=== PATIENT | female | born 1980 | race Caucasian/White ===

== ENCOUNTER 2021-05-14 20:39 | Inpatient (IN) | payer BC, SELFPAY ==
--- NOTE | ~2021-05-14 | US_ITS ---
EXAMINATION: US renal BI EXAM DATE: 05/15/2021 16:50 INDICATION: Acute kidney insufficiency. TECHNIQUE: Multiple grayscale and Doppler images of the kidneys were obtained (by a technologist who performed the scan) and subsequently reviewed. There is no prior study for comparison. FINDINGS: Right kidney: There is normal contour and echogenicity. It measures 10.1 x 4.8 x 5.9 centimeters. T here are no focal renal lesions identified. There is no hydronephrosis. Left kidney: There is normal contour and echogenicity. It measures 9.3 x 5.5 x 6.0 centimeters. The re are no focal renal lesions identified. There is no hydronephrosis. Bladder unremarkable. IMPRESSION: 1. Sonographically unremarkable kidneys. Reviewed, dictated and finalized at location G. CUTTER OPERATOR
--- NOTE | ~2021-05-14 | XR_ITS ---
EXAMINATION: XR chest 1V portable DATE: 05/16/2021 06:00 INDICATION: Hypoxia. TECHNIQUE: A single frontal view of the chest was obtained. COMPARISON: CT abdomen and pelvis 05/15/2021 FINDINGS: There are Sai B-lines in the lungs, consistent with mild pulmonary edema. No pleural eff usion or pneumothorax. The heart size is normal. IMPRESSION: 1. Mild pulmonary edema. Reviewed, dictated and finalized at location E. HOUSE ORDER SELECTOR IMPRESSION: 1. Mild pulmonary edema.
--- NOTE | ~2021-05-14 | CT_ITS ---
EXAMINATION: CT abdomen wo con DATE: 05/20/2021 11:30 INDICATION: Increased abdominal pain. Decreased drain output. TECHNIQUE: Computed tomography (CT) of the abdomen and pelvis was performed without intravenous contr ast. The dose-length product was 112.68 mGy-cm. Automated exposure control and iterative reconstructi on technique were employed. COMPARISON: CT dated 05/15/2021. FINDINGS: There are small-moderate bilateral pleural effusions with underlying compressive atelectasi s. Cannot exclude superimposed pneumonia. There are subtle reticulonodular densities in the lower lob es, most likely infectious/inflammatory. Heart size normal. No significant vascular abnormality. Ther e is thickening of the pylorus of the stomach and duodenum, likely secondary to pancreatitis. There i s gallbladder wall thickening. There are pancreatic calcifications, consistent with chronic pancreati tis. There is subtle stranding surrounding the pancreatic head extending into the pararenal space and along the liver margin, consistent with acute pancreatitis. There is a percutaneous drainage cathete r along the inferior margin of the liver with near complete resolution of perihepatic abscess. There is mild thickening of the gallbladder, likely also secondary to adjacent pancreatitis. IMPRESSION: 1. Interval development of small-moderate bilateral pleural effusions with underlying compressive ate lectasis. Cannot exclude superimposed pneumonia. 2: Abnormal thickening of the stomach and duodenum, likely secondary inflammatory changes from pancre atitis. 3: Acute superimposed on chronic pancreatitis. 4: Near complete resolution of perihepatic abscess since prior examination with drain in expected pos ition. Reviewed, dictated and finalized at location A. TING SUPERVISOR IMPRESSION: 1. Interval development of small-moderate bilateral pleural effusions with unde rlying compressive atelectasis. Cannot exclude superimposed pneumonia. 2: Abnormal thickening of the stomach and duodenum, likely secondary inflammato ry changes from pancreatitis. 3: Acute superimposed on chronic pancreatitis. 4: Near complete resolution of perihepatic abscess since prior examination with drain in expected position.
--- NOTE | ~2021-05-14 | CT_ITS ---
EXAMINATION: CT guide absc cath placement DATE: 05/15/2021 11:00 INDICATION: Perihepatic abscess. TECHNIQUE: The procedure including the risks, benefits, and alternatives was discussed with the patie nt. Risks discussed included bleeding and infection. The patient understood the risks and benefits an d agreed to proceed. The skin overlying the abdomen was prepped and draped in usual sterile fashion. Anesthetic was administered with 1% lidocaine subcutaneously. An 18 gauge trochar needle was inserte d into the perihepatic abscess with CT guidance. The needle was exchanged over a wire for 6 Gabonese, 8 Gabonese, and 9 Gabonese dilators and then for an 8.5 Gabonese pigtail catheter. The catheter was stitched to the skin, and a sterile dressing was applied. The mA was adjusted according to patient size. Iter ative reconstruction technique was employed. The dose-length product was 157.08 mGy-cm. There were no immediate complications. FINDINGS: CT images demonstrate the catheter within the perihepatic abscess. 7 mL fluid was aspirated for testing. IMPRESSION: 1. Successful CT-guided perihepatic abscess drainage. 2. 7 mL light green-nixon fluid was sent for aerobic and anaerobic cultures. Reviewed, dictated and finalized at location A. NCE SCOUT
--- NOTE | ~2021-05-14 | CT_ITS ---
EXAMINATION: CT abdomen pelvis wo con DATE: 05/15/2021 00:18 INDICATION: Epigastric abdominal pain. Right upper quadrant abdominal pain. Nausea. TECHNIQUE: Computed tomography (CT) of the abdomen and pelvis was performed without intravenous contr ast. Automated exposure control and iterative reconstruction technique were employed. The dose-length product was 179.86 mGy-cm. COMPARISON: None. FINDINGS: The visualized portions of the lung bases are clear without pneumonia or pleural effusion. The heart size is normal. No pericardial effusion. Calcifications in the spleen are consistent with o ld granulomatous disease. The pancreas demonstrates enlargement of the head with calcifications, cons istent with chronic pancreatitis. There is a 1.1 x 3.3 x 2.0 cm collection of fluid and gas involving the body of the pancreas extending along the gastric antrum to the liver margin, best seen on the co aditi images. At the right hepatic lobe, there is a subcapsular abscess with fluid and gas measuring 9.7 x 6.2 x 7.2 cm. There is surrounding fat stranding. There is wall thickening of the nearby ascend ing and proximal transverse colon, consistent with inflammation. There are no dilated loops of bowel. The appendix is normal. There is wall thickening of the distal stomach. There is fat stranding arou nd the head of the pancreas and distal stomach. The adrenal glands and kidneys are normal. There are no pathologically enlarged lymph nodes. There is no pelvic ascites. There is mild lumbar spondylosis. There are multiple Schmorl's nodes in the spine. IMPRESSION: 1. Acute on chronic pancreatitis with associated inflammation of the distal stomach and abscess track ing from the body of the pancreas to the liver margin. The abscess measures 1.1 x 3.3 x 2.0 cm adjace nt to the pancreas and 9.7 x 6.2 x 7.2 cm at the right lateral inferior margin of the liver. Reviewed, dictated and finalized at location A. BRATION ENGINEER IMPRESSION: 1. Acute on chronic pancreatitis with associated inflammation of the distal sto mach and abscess tracking from the body of the pancreas to the liver margin. Th e abscess measures 1.1 x 3.3 x 2.0 cm adjacent to the pancreas and 9.7 x 6.2 x 7.2 cm at the right lateral inferior margin of the liver.
[2021-05-14 20:43] VITALS: BP 92/77; PULSE 71; RESP 18; O2SAT 98
--- NOTE | 2021-05-14 21:40 | ED.ABDPAIN ---
HPI - Abdominal Pain General Chief Complaint: Abdominal Pain Stated Complaint: weak, N/V, decreased PO intake x 3 weeks Time Seen by Provider: 05/14/21 21:26 Source: patient History of Present Illness HPI narrative: Patient presents with abdominal pain nausea vomiting for the past few weeks. Patient ports a history of pancreatitis and this is similar to her prior episodes. Her pain is achy, constant is primarily on her right upper quadrant but does radiate down her right abdomen. Reports he has been able to eat anything for the past couple days. Denies any diarrhea denies any urinary symptoms denies any fevers or known sick contact reports a history of significant alcohol use Related Data Allergies Allergy/AdvReac Type Severity Reaction Status Date / Time acetaminophen [From Vicodin] Allergy Vomiting Verified 05/14/21 20:48 hydrocodone [From Vicodin] Allergy Vomiting Verified 05/14/21 20:48 morphine Allergy Itching Verified 05/14/21 20:48 Review of Systems Review of Systems: CONSTITUTIONAL: Denies fever, chills, or sweats. EYES: Denies visual changes, redness, or discharge. ENT: Denies rhinorrhea, congestion, sore throat, or otalgia. CARDIOVASCULAR: Denies chest pain, palpitations, or edema. RESPIRATORY: Denies cough or dyspnea. GASTROINTESTINAL: Abdominal pain, nausea, vomiting GENITOURINARY: Denies dysuria or hematuria. SKIN: Denies rash or itching. MUSCULOSKELETAL: Denies back pain, joint pain, or myalgia. NEUROLOGIC: Denies headache, numbness, dizziness, or weakness. PSYCHIATRIC: Denies anxiety or depression. All systems reviewed & are unremarkable except as noted in HPI and below PMFSH Past Medical History Medical History (Updated 05/15/21 @ 02:01 by Rajesh Domingo MD) Pancreatitis Social History Social History (Updated 05/14/21 @ 21:41 by Rajesh Domingo MD) Alcohol intake: former Exam Narrative: GENERAL: Well-appearing, well-nourished, and in no acute distress. HEAD: Normocephalic, atraumatic. EYES: PERRLA and EOMI. ENT: Nares clear, no rhinorrhea or epistaxis. Mucous membranes moist. NECK: Supple. No masses. No JVD ABDOMEN: Soft diffuse tenderness on the right abdomen nondistended EXTREMITIES: Normal range of motion. No edema. SKIN: Warm, dry, no rash. NEURO: No focal deficits. Alert and oriented x3. PSYCH: Normal mood and affect. Course Reevaluation(s) Reevaluation #1: Patient is more comfortable Case discussed with surgery on-call plan for admission for procedural intervention likely by IR. Page placed to hospitalist. Date: 05/15/21 Time: 01:24 Reevaluation #2: Discussed with hospitalist patient will be admitted for further management. Patient is comfortable inpatient plan. Date: 05/15/21 Time: 01:58 Vital Signs Vital signs: Vital Signs Pulse Rate 71 05/14/21 20:43 Respiratory Rate 18 05/14/21 20:43 Blood Pressure 92/77 L 05/14/21 20:43 Pulse Oximetry 98 05/14/21 20:43 Temperature 36.9 C 05/15/21 02:52 Pulse Rate 104 H 05/15/21 03:31 Respiratory Rate 16 05/15/21 03:31 Blood Pressure 122/88 05/15/21 03:31 Pulse Oximetry 98 05/15/21 03:31 MDM - Abdominal Pain MDM Narrative Medical decision making narrative: Patient with epigastric and right-sided abdominal pain initial blood pressure was soft. Patient appeared chronically ill exam notable for epigastric and right-sided abdominal pain. Labs and imaging obtained. Labs notable for leukocytosis, elevated bicarb, hypokalemia and acute renal failure. Patient developed mild cardia she was treated with fluid resuscitation and antibiotics given imaging findings concerning for abscess. Case cussed with surgery patient is likely candidate for IR drainage. Patient made to the hospitalist team for further monitoring. Patient is comfortable with inpatient plan Lab Data Result diagrams: 05/14/21 22:43 05/14/21 22:43 Labs: Lab Results 05/14/21 05/14/21 05/14/21 Range/Units 22:
[2021-05-14] MEDS: ONDANSETRON INJ 4 MG/2 ML VIAL IV PUSH ×2 (21:55→22:59)
[2021-05-14] MEDS: SODIUM CHLORIDE 0.9% IV 1,000 ML 999 ML IV CONT (21:55)
[2021-05-14 22:52] LABS: Basophils Absolute Auto 0.1 K/mm3 (0.0-0.1); Basophils Percent Auto 0.2 % (0.2-1.2); Eosinophils Absolute Auto 0.1 K/mm3 (0-0.3); Eosinophils Percent Auto 0.3 % (0-4.4); Hematocrit 39.4 % (37.0-47.0); Hemoglobin 13.5 g/dL (12.0-15.0); Immature Granulocyte Absolute 0.31 K/mm3 (0.00-0.031); Lymphocytes Absolute Auto 1.87 K/mm3 (0.9-3.2); Lymphocytes Percent Auto 5.8 % (18.3-44.2); Mean Corpuscular HGB Conc 34.3 g/dl (32-36); Mean Corpuscular Hemoglobin 31.5 pg (26-34); Mean Corpuscular Volume 92.1 fl (80-100); Monocytes Absolute Auto 1.5 K/mm3 (0.1-0.6); Monocytes Percent Auto 4.7 % (2.6-8.5); Neutrophils Absolute Auto 28.7 K/mm3 (1.3-6.7); Red Blood Count 4.28 M/mm3 (4.2-5.4); Red Cell Distribution Width 14.8 % (11.5-14.5); White Blood Count 32.5 K/mm3 (4.5-10.0)
[2021-05-14] MEDS: FAMOTIDINE 20 MG/2 ML VIAL IV PUSH (22:59)
[2021-05-14 23:18] LABS: Anisocytosis 1+ (NORMAL); Large Platelets Present; Platelet Clumps Present; Platelet Estimate Increased (Adequate)
[2021-05-14 23:23] LABS: Alanine Aminotransferase 12 U/L (4-35); Albumin Level 4.1 g/dL (3.5-5.1); Alkaline Phosphatase 189 U/L (38-126); Aspartate Amino Transferase 22 U/L (14-36); Bilirubin,Total 0.6 mg/dL (0.2-1.3); Blood Urea Nitrogen 58 mg/dL (7-17); Calcium 8.4 mg/dL (8.4-10.2); Carbon Dioxide > 40 mmol/L (22-30); Chloride 71 mmol/L (98-107); Estimated CRCL calculation 10 ml/min; Estimated Glomerular Filt Rate 10; Glucose 100 mg/dL (65-110); Lipase 396 U/L (23-300); Potassium 2.1 mmol/L (3.4-5.0); Sodium 133 mmol/L (137-145)
[2021-05-14 23:37] VITALS: BP 143/98; PULSE 114; RESP 13; O2SAT 98
[2021-05-14] MEDS: HYDROmorphone HCL INJ (*CRX) 1 MG/ML SYR 0.5 MG IV PUSH (23:43)
[2021-05-14] MEDS: PANTOPRAZOLE SODIUM IV 40 MG VIAL IV PUSH (23:43)
[2021-05-14] MEDS: POTASSIUM CHLORIDE INJ 40 MEQ in SODIUM CHLORIDE 0.9% IV 500 ML 130 MEQ IVPB (23:50)
[2021-05-15] VITALS (16 sets, daily range): BP systolic 116–148; BP diastolic 80–108; PULSE 85–113; RESP 16–27; TEMP 36.4–36.9; O2SAT 89–100; BMI 15.0
[2021-05-15 00:24] LABS: Add Urine Microscopic? YES; Appearance Urine Cloudy (Clear); Bilirubin Urine Negative (Negative); Blood Urine 3+ (Negative); Color Urine Amber (Yellow); Glucose Urine UA 1+ mg/dL (Negative); Hyaline Casts Urine 50+ /lpf; Ketones Urine Negative (Negative); Leukocyte Esterase Ur Negative LEU/UL (Negative); Nitrate Urine Negative (Negative); Protein Urine 2+ mg/dL (Negative); RBC Urine 21-50 /hpf (0-2); Squamous Epithelial Cell Urine Many /hpf (Few); WBC Clumps Urine Present /HPF; WBC Urine 21-30 /hpf
[2021-05-15] MEDS: PANTOPRAZOLE SODIUM IV 40 MG VIAL IV PUSH ×2 (01:52→21:34)
[2021-05-15] MEDS: SODIUM CHLORIDE 0.9% IV 1,000 ML 999 ML IV CONT ×2 (01:53→02:00)
--- NOTE | 2021-05-15 02:02 | ECG_ITS ---
Measurements Intervals [place] Rate: 103 P: 70 VA: 145 QRS: 80 QRSD: 94 T: 18 QT: 410 QTc: 537 Interpretive Statements SINUS TACHYCARDIA MINIMAL Q WAVES- ANTEROLATERAL LEADS BORDERLINE ST-T WAVE ABNORMALITY- INFERIOR LEADS BASELINE ARTIFACT- I, III, AVR, AVL BORDERLINE ECG Electronically Signed On 05-15-2021 9:53:33 SUPERVISOR ERECTION SHOP by Mike Kaplan D.O.
[2021-05-15 02:13] LABS: Alveolar/Arterial O2 Gradient 12.9 mmHg; Base Excess ABG 13.9 mEq/l (+/-2.0); Fractional Inspired Oxygen 21 %; HCO3 ABG 40.3 mEq/l (22.0-26.0); Oxygen Content ABG 14.5 %vol (16.0-22.0); Oxygen Saturation ABG 93.3 % (95.0-100.0); PCO2 ABG 59.2 mmHg (35.0-45.0); PO2 ABG 65.9 mmHg (80.0-100.0); PO2 FiO2 Ratio Arterial Blood 3.14 %; Total Hemoglobin 12.1 g/dL (12.0-18.0); pH ABG 7.451 (7.350-7.450)
[2021-05-15 02:16] LABS: Modified Allen's Test Pass; Oxyhemoglobin 85.1 % THb (90.0-100.0); Site Drawn RIGHT RADIAL
[2021-05-15 02:17] LABS: Device ROOM AIR
[2021-05-15] MEDS: PHARMACIST COMMUNICATION ORDER 1 EACH XX (02:57)
[2021-05-15 03:07] LABS: Magnesium 2.7 mg/dL (1.6-2.3)
[2021-05-15 03:23] LABS: Lactic Acid Reflex 1.6 mmol/L (0.7-2.1)
[2021-05-15 03:24] LABS: Partial Thromboplastin Time 23.8 SECONDS (22.3-36.8); Prothrombin Time 12.8 Seconds (11.1-14.7)
[2021-05-15 03:48] LABS: SARS-CoV-2 RNA PCR Negative
[2021-05-15] MEDS: HYDROmorphone HCL INJ (*CRX) 1 MG/ML SYR 0.5 MG IV PUSH ×5 (03:49→20:28)
[2021-05-15] MEDS: ONDANSETRON INJ 4 MG/2 ML VIAL IV PUSH (04:34)
[2021-05-15] MEDS: POTASSIUM CHLORIDE INJ 40 MEQ in SODIUM CHLORIDE 0.9% IV 500 ML 130 MEQ IVPB (04:35)
[2021-05-15] MEDS: SODIUM CHLORIDE 0.9% IV 1,000 ML 125 ML IV CONT ×3 (04:35→20:28)
--- NOTE | 2021-05-15 04:36 | PC.NURSE ---
Hospitalist Dr Marie at bedside at this time to discuss POC.
--- NOTE | 2021-05-15 07:34 | PM.IMHP ---
H&P: HPI History of Present Illness Date/Time: 05/15/21 04:34 Chief Complaint: Abdominal pain and vomiting Narrative: 40-year-old female with past medical history of distant history of alcohol use, acute and chronic pancreatitis with prior infected pseudocyst who presented to the ER with 3 weeks of abdominal pain, nausea and vomiting. The patient reports that she 1st developed pancreatitis for 5 years ago. 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 She continued to drink for a few months after her 1st bout with pancreatitis but when she had recurrent pancreatitis she stops drinking. She reports that has not drank in least 3-4 years. Despite not drinking alcohol she has had recurrent episodes of pancreatitis. It looks like her last episode of infected pseudocyst was in January of 2021 when she was hospitalized at [facility] in [facility]. She reports that she had an episode of her chronic abdominal pain back in March at which time she was evaluated at [facility]. At that time they were going to transfer her to [facility] as they did not have any beds at [facility] and she developed a panic attack and left the ER after approximately 20 hours in the ER. She reported that she had been doing relatively well until about 3 weeks ago when she developed abdominal pain that involved the right adnexal region that and extended up her right abdomen into her right upper quadrant. She reported that this pain was different than her usual pancreatitis pain and occurred around the time of her menstrual cycle so she thought it was due to her ovaries. Her pain was relatively stable and not changing significantly. She reported that she had accompanying nausea and vomiting that would wax and wane. She would have several days where she could not eat anything and then would have a day where she could have a few sips of water or some soft foods and she could take a couple of bites down. She has had significant weight loss. She states that she has not weighed herself in quite some time but she has noticed protruding hip bones and her sister has reported that the patient looks like ?.? The patient reports that her weight a couple of months ago was around 110 lb. Currently her weight is around 99 lb. She reports that her emesis has been nonbloody or bilious. She stated that she ate a small amount of peaches yesterday about 8 hours before she came to the ER and she is still vomiting small amounts of those peaches. She reports that she has been vomiting so much and for so long that his throat is quite raw. She denies any chest pain or shortness of breath. She does still smoke 1 pack of cigarettes per day. She denies a previous diagnosis of COPD. However in the ER the patient was noted to be hypoxic and had an elevated serum bicarb on her CMP. An ABG was performed which demonstrated acute respiratory alkalosis and chronic respiratory acidosis. She denies any significant cough, congestion, fever. She had a COVID PCR in the ER that was negative. She has noted that over the last 4 days she has only urinated once a day and very small amounts. She denies any dysuria. She notices that her urine has been darker for at least a week. She denies ever having any history of prior renal failure but labs in the ER demonstrated acute renal failure. She reports that she has been feeling weaker for the last couple of days. When she got up this morning the let her dog outside she had a syncopal event. When she woke up she felt so bad that she thought she was going to . She called EMS and came to the ER. On arrival to the home the EMS found the patient to be hypotensive but blood pressures had improved to 92/77. She reports that she was afebrile on arrival to the ER. The patient did have episodes of flushing sensation at home. She did have a fever of 100.5 a week or so ago at home. She has not checked her temperature recently. In the ER she was afebrile. She reports th
--- NOTE | 2021-05-15 09:10 | PC.NURSE ---
Surgery PA here to see pt.
[2021-05-15 09:14] LABS: Basophils Absolute Auto 0.1 K/mm3 (0.0-0.1); Basophils Percent Auto 0.3 % (0.2-1.2); Hematocrit 31.4 % (37.0-47.0); Hemoglobin 10.4 g/dL (12.0-15.0); Immature Granulocyte Absolute 0.25 K/mm3 (0.00-0.031); Immature Granulocyte Percent A 1.1 % (0-0.5); Lymphocytes Absolute Auto 2.25 K/mm3 (0.9-3.2); Lymphocytes Percent Auto 9.6 % (18.3-44.2); Mean Corpuscular HGB Conc 33.1 g/dl (32-36); Mean Corpuscular Hemoglobin 31.8 pg (26-34); Mean Platelet Volume 9.8 fl (7.4-10.4); Monocytes Absolute Auto 1.2 K/mm3 (0.1-0.6); Monocytes Percent Auto 5.2 % (2.6-8.5); Neutrophils Absolute Auto 19.7 K/mm3 (1.3-6.7); Neutrophils Percent Auto 83.8 % (45.5-73.1); Platelet Count Result 526 k/mm3 (150-375); Red Blood Count 3.27 M/mm3 (4.2-5.4); Red Cell Distribution Width 14.8 % (11.5-14.5); White Blood Count 23.5 K/mm3 (4.5-10.0)
[2021-05-15 09:23] LABS: Albumin Level 3.2 g/dL (3.5-5.1); Alkaline Phosphatase 119 U/L (38-126); Anion Gap 10 mmol/L (8-16); Aspartate Amino Transferase 29 U/L (14-36); Bilirubin,Total 0.5 mg/dL (0.2-1.3); Blood Urea Nitrogen 52 mg/dL (7-17); Calcium 7.2 mg/dL (8.4-10.2); Carbon Dioxide 33 mmol/L (22-30); Chloride 95 mmol/L (98-107); Estimated CRCL calculation 12 ml/min; Estimated Glomerular Filt Rate 12; Glucose 82 mg/dL (65-110); Phosphorus 4.6 mg/dL (2.5-4.5); Sodium 138 mmol/L (137-145)
[2021-05-15 09:35] LABS: Alanine Aminotransferase 23 U/L (4-35)
--- NOTE | 2021-05-15 10:23 | PM.CNGS ---
Assessment and Plan Assessment and plan (1) Pancreatic abscess: Code(s): K85.90 - Acute pancreatitis without necrosis or infection, unspecified Status: Acute Assessment and Plan: CT scan reviewed and discussed with the patient in detail. CT also reviewed with Radiologist. There is a large fluid and gas collection extending from the body of the pancreas, along the gastric antrum, to the right lateral inferior liver margin. The largest are of this fluid collection is inferior to the liver measuring up to 9.7 cm, which is amenable to drainage. We would recommend proceeding with percutaneous drainage of the pancreatic abscess by Radiology. Continue broad-spectrum IV antibiotics, IV fluids, and analgesics. Will allow patient to have clear liquids following the drainage procedure. Repeat labs tomorrow. (2) Acute on chronic pancreatitis: Code(s): K85.90 - Acute pancreatitis without necrosis or infection, unspecified; K86.1 - Other chronic pancreatitis Status: Acute Assessment and Plan: Continue IV fluids and IV analgesics. Will allow clear liquids following drainage procedure. (3) Acute renal failure: Qualifiers: Acute renal failure type: unspecified Qualified Code(s): N17.9 - Acute kidney failure, unspecified Code(s): N17.9 - Acute kidney failure, unspecified Status: Acute Assessment and Plan: Creatinine 5.0 on admission with decreased urine output and electrolyte imbalance. K+ being replaced IV. Continue IV fluids. Monitor labs. (4) Sepsis: Qualifiers: Acute renal failure type: unspecified Sepsis acute organ dysfunction status: with acute organ dysfunction Sepsis type: sepsis due to unspecified organism Severe sepsis acute organ dysfunction type: acute renal failure Severe sepsis shock status: without septic shock Qualified Code(s): A41.9 - Sepsis, unspecified organism; R65.20 - Severe sepsis without septic shock; N17.9 - Acute kidney failure, unspecified Code(s): A41.9 - Sepsis, unspecified organism Status: Acute Assessment and Plan: Sepsis criteria met on admission with hypotension, tachycardia, leukocytosis in the presence of suspected intra-abdominal infection. Source suspected to be pancreatic abscess with pancreatitis. Blood cultures pending. U/A with cx pending. Lactic 1.6. Continue broad-spectrum IV antibiotics, IV fluid resuscitation, and close monitoring. BP improved with IV fluids. Plan for IR drainage of pancreatic abscess today. See plan above. Trend labs. (5) Severe protein-calorie malnutrition: Code(s): E43 - Unspecified severe protein-calorie malnutrition Status: Acute Assessment and Plan: Will allow clear liquids following drainage procedure. If patient is unable to tolerate oral intake, then we will have to consider alternative nutrition. (6) Acute respiratory alkalosis: Code(s): E87.3 - Alkalosis Status: Acute Additional Plan I have discussed the patient's case and plan of care with Dr. Warner. History of Present Illness Consult details Consult date: 05/15/21 Reason for consult: other (Acute on chronic pancreatitis with a peripancreatic abscess extending along the inferior-lateral border of liver) Requesting physician: Rajesh Domingo MD Narrative: This is a 40-year-old female with a history of chronic pancreatitis and distant history of alcohol abuse, who presented to the emergency department via EMS from home with abdominal pain, generalized weakness, vomiting, and a syncopal episode. The patient reports initially being diagnosed with her first episode of pancreatitis about 5 years ago. She reports a history of heavy alcohol use that they felt was the cause of her pancreatitis. She reports continuing to drink alcohol for a short period of time after the first episode, but this seemed to exacerbate her symptoms and she eventually quit drinking. She denies any alcohol use over the past 3-4
--- NOTE | 2021-05-15 10:29 | PM.IMPN ---
Progress Note: A&P Assessment and Plan (1) Sepsis: Qualifiers: Acute renal failure type: unspecified Sepsis acute organ dysfunction status: with acute organ dysfunction Sepsis type: sepsis due to unspecified organism Severe sepsis acute organ dysfunction type: acute renal failure Severe sepsis shock status: without septic shock Qualified Code(s): A41.9 - Sepsis, unspecified organism; R65.20 - Severe sepsis without septic shock; N17.9 - Acute kidney failure, unspecified Code(s): A41.9 - Sepsis, unspecified organism Status: Acute Assessment and Plan: Patient has severe sepsis on admission with ANGELI due to acute on chronic pancreatitis with pancreatic/hepatic abscess and noted with leukocytosis, tachycardia and ANGELI. The BP was low by EMS at 68/42 but better with fluids. BP stable here. The patient was started on empiric antibiotic therapy with Zosyn in the ER. IR was consulted with I&D of hepatic abscess. WBC better and no fevers. Blood/Urine/Abscess cultures pending. Continue IV abx. (2) Abscess, hepatic: Code(s): K75.0 - Abscess of liver Status: Deleted Assessment and Plan: CT scan showing acute on chronic pancreatitis with associated inflammation of the distal stomach and abscess tracking from the body of the pancreas to the liver margin. The abscess measures 1.1 x 3.3 x 2.0 cm adjacent to the pancreas and 9.7 x 6.2 x 7.2 cm at the right lateral inferior margin of the liver. As above with drain placed today. GI consulted and agreed with decision to transfer patient but given the current bed situation with the COVID pandemic, transferring patients has been difficult. Appreciate GI input. (3) Pancreatic abscess: Code(s): K85.90 - Acute pancreatitis without necrosis or infection, unspecified Status: Acute Assessment and Plan: As above. (4) Acute on chronic pancreatitis: Code(s): K85.90 - Acute pancreatitis without necrosis or infection, unspecified; K86.1 - Other chronic pancreatitis Status: Acute Assessment and Plan: [place] patient with acute on chronic pancreatitis. CT scan showing ac/ch pancreatitis but lipase 396. Pancreas may not be able to mount higher levels. Will keep NPO and continue IV fluids. GI consulted and appreciate their input. Consider TPN. Check lipase tomorrow. Add PPI. (5) Acute renal failure: Qualifiers: Acute renal failure type: unspecified Qualified Code(s): N17.9 - Acute kidney failure, unspecified Code(s): N17.9 - Acute kidney failure, unspecified Status: Acute Assessment and Plan: Patient has acute renal failure most likely due to dehydration complicated by severe sepsis with possible ATN from HoTN. Patient received 3 L of normal saline in the ER and remains on continuous IV fluid hydration. BP better controlled. Cr trending down. Check renal US. Continue to monitor. (6) Chronic hypercapnic respiratory failure: Code(s): J96.12 - Chronic respiratory failure with hypercapnia Status: Acute Assessment and Plan: Patient has evidence of chronic hypercapnic respiratory failure and history of heavy tobacco use. The patient has hypoxic as well on the ABG. Patient probably with underlying COPD. Continue supplemental oxygen to maintain oxygen saturations 88-92%. Nebulizer treatments available prn. Tobacco cessation has been encouraged. (7) Hypokalemia: Code(s): E87.6 - Hypokalemia Status: Acute Assessment and Plan: Patient has profound hypokalemia. Potassium has been replaced. Mag level okay. Continue to monitor and replace as needed. (8) Severe protein-calorie malnutrition: Code(s): E43 - Unspecified severe protein-calorie malnutrition Status: Acute Assessment and Plan: Patient has severe protein calorie malnutrition. If patient is to remain NPO she will likely benefit from peripheral nutrition in the near future. (9)
--- NOTE | 2021-05-15 12:13 | WPDGICN ---
Assessment and Plan Assessment and plan (1) Pancreatic abscess: Code(s): K85.90 - Acute pancreatitis without necrosis or infection, unspecified Status: Acute Assessment and Plan: is difficult to know how long she has had this abscess. We will try to obtain the results of her most recent CT scan which was done at [facility] in March. Fortunately Radiology was able to place a percutaneous catheter and already overt 200 cc of purulent material has drained. this case was discussed with the hospitalist. She would obviously be best off [facility] but wer are unable to transfer her now. (2) Acute on chronic pancreatitis: Code(s): K85.90 - Acute pancreatitis without necrosis or infection, unspecified; K86.1 - Other chronic pancreatitis Status: Acute Assessment and Plan: She has had multiple attacks of pancreatitis. Alcohol was the initial factor and apparently Responsible for the subsequent recurrences. surprising the liver enzymes are normal except for elevated alkaline phosphatase at 189. Lipase is 396. Explain to the patient that this is quite serious. I told her that in some cases pancreatic debridement by a surgeon is necessary. She is quite tender, a little more so since the percutaneous drain was placed. She has had several doses of hydromorphone. (3) Acute renal failure: Qualifiers: Acute renal failure type: unspecified Qualified Code(s): N17.9 - Acute kidney failure, unspecified Code(s): N17.9 - Acute kidney failure, unspecified Status: Acute Assessment and Plan: Her creatinine clearance is only 10. Hopefully this will improve with rehydration as we do not have baseline numbers on her (4) Hypokalemia: Code(s): E87.6 - Hypokalemia Status: Acute Assessment and Plan: this has already been addressed with potassium infusion (5) Sepsis: Qualifiers: Acute renal failure type: unspecified Sepsis acute organ dysfunction status: with acute organ dysfunction Sepsis type: sepsis due to unspecified organism Severe sepsis acute organ dysfunction type: acute renal failure Severe sepsis shock status: without septic shock Qualified Code(s): A41.9 - Sepsis, unspecified organism; R65.20 - Severe sepsis without septic shock; N17.9 - Acute kidney failure, unspecified Code(s): A41.9 - Sepsis, unspecified organism Status: Acute Assessment and Plan: the source of her infection and leukocytosis is obviously the abscess or abscesses. On imipenem would be ideal for penetration of pancreatic tissue but per pharmacy she will need to have improvement in her creatinine clearance before she should have that drug. (6) Weight loss: Code(s): R63.4 - Abnormal weight loss Status: Acute Assessment and Plan: This is been a gradual process due to her chronic pancreatitis. We will discuss with her the importance of a healthy diet GI Consult Note Consult date/time: 05/15/21 12:13 HPI: Chio Cunningham is a 40 year old female who presents emergency room with severe abdominal pain. She states that she has had pain for at least 1 month. In March she was in the emergency room at [facility]. She believes that that is where she had her last CT scan. They told her they had no beds in the will going to transfer her to [facility] and that an ambulance was on the way, but after 8 hours she left as transfer it never occurred. She has been hospitalized at least 6 or 7 times with pancreatitis. First episode was 4 years ago at and likely due to alcohol abuse. She did have at 1 time stents placed and bolivar states that Lauri drained a pseudocyst at that time. She has never had other cysts or abscesses to her knowledge but now CT scan shows 2 fluid collections the largest adjacent to the liver and consistent with a possible abscess. She has just returned from Radiology w
[2021-05-15 12:24] LABS: Barbiturate Screen Urine Negative (Negative); Benzodiazepines Screen Urine Negative (Negative)
[2021-05-15 12:25] LABS: Cannabinoid Screen Urine Positive (Negative); Cocaine Screen Urine Negative (Negative); Methadone Screen Urine Negative (Negative); Opiate Screen Urine Positive (Negative); Phencyclidine Screen Urine Negative (Negative)
[2021-05-15 12:32] LABS: Amphetamine Screen Urine Negative (Negative)
--- NOTE | 2021-05-15 13:45 | PC.NURSE ---
225 ml of pus emptied from drain.
[2021-05-15] MEDS: POTASSIUM CHLORIDE 20 MEQ PACKET (FOR LIQUID) PO (15:29)
--- NOTE | 2021-05-15 17:14 | ADMGEN ---
This patient, Chio Cunningham, was admitted to IMU Room 205-01 at 1701 on 05/15/2021. Patient/family oriented to hospital policies and general routines including ID bracelet, bed and alarms, visiting hours, pain management, procedures, bathroom and other care routines, personal items, smoking policy, room service/diet, and visiting hours. Information on how to activate the Rapid Response Team has been discussed. Patient/Family are encouraged to report perceived risks to care and to ask questions if they do not understand what they are told or what they should do.
[2021-05-15] MEDS: IPRATROPIUM BR 0.02% INH SOLN 0.5 MG/2.5 ML VIAL INHALATION (19:38)
[2021-05-15] MEDS: ALBUTEROL SULFATE NEB 2.5 MG/0.5 ML INH 5 MG INHALATION (19:39)
[2021-05-16] VITALS (18 sets, daily range): BP systolic 121–143; BP diastolic 84–101; PULSE 71–96; RESP 16–18; TEMP 36.4–36.5; O2SAT 92–100; BMI 15.0
[2021-05-16] MEDS: ALBUTEROL SULFATE NEB 2.5 MG/0.5 ML INH 5 MG INHALATION ×2 (01:02→10:09)
[2021-05-16] MEDS: IPRATROPIUM BR 0.02% INH SOLN 0.5 MG/2.5 ML VIAL INHALATION ×2 (01:02→10:10)
[2021-05-16 05:00] LABS: Basophils Percent Auto 0.2 % (0.2-1.2); Eosinophils Percent Auto 0.1 % (0-4.4); Hematocrit 28.7 % (37.0-47.0); Hemoglobin 9.2 g/dL (12.0-15.0); Immature Granulocyte Absolute 0.13 K/mm3 (0.00-0.031); Lymphocytes Absolute Auto 2.72 K/mm3 (0.9-3.2); Lymphocytes Percent Auto 20.9 % (18.3-44.2); Mean Corpuscular HGB Conc 32.1 g/dl (32-36); Mean Corpuscular Hemoglobin 31.3 pg (26-34); Mean Corpuscular Volume 97.6 fl (80-100); Mean Platelet Volume 9.6 fl (7.4-10.4); Monocytes Absolute Auto 0.6 K/mm3 (0.1-0.6); Monocytes Percent Auto 4.5 % (2.6-8.5); Neutrophils Absolute Auto 9.5 K/mm3 (1.3-6.7); Neutrophils Percent Auto 73.3 % (45.5-73.1); Platelet Count Result 422 k/mm3 (150-375); Red Blood Count 2.94 M/mm3 (4.2-5.4); Red Cell Distribution Width 14.6 % (11.5-14.5)
[2021-05-16 05:17] LABS: Alanine Aminotransferase 15 U/L (4-35); Albumin Level 2.8 g/dL (3.5-5.1); Alkaline Phosphatase 105 U/L (38-126); Anion Gap 4 mmol/L (8-16); Aspartate Amino Transferase 28 U/L (14-36); Bilirubin,Total 0.4 mg/dL (0.2-1.3); Blood Urea Nitrogen 41 mg/dL (7-17); Calcium 7.8 mg/dL (8.4-10.2); Carbon Dioxide 34 mmol/L (22-30); Chloride 97 mmol/L (98-107); Estimated CRCL calculation 15 ml/min; Estimated Glomerular Filt Rate 19; Glucose 93 mg/dL (65-110); Lipase 123 U/L (23-300); Potassium 2.9 mmol/L (3.4-5.0); Sodium 135 mmol/L (137-145)
[2021-05-16] MEDS: SODIUM CHLORIDE 0.9% IV 1,000 ML 125 ML IV CONT ×3 (05:21→20:43)
--- NOTE | 2021-05-16 06:53 | WPDGIPROGNO ---
Progress Note: A&P Assessment and Plan (1) Pancreatic abscess: Code(s): K85.90 - Acute pancreatitis without necrosis or infection, unspecified Status: Acute Assessment and Plan: is difficult to know how long she has had this abscess. We will try to obtain the results of her most recent CT scan which was done at [facility] in March. Fortunately Radiology was able to place a percutaneous catheter and already overt 200 cc of purulent material has drained. this case was discussed with the hospitalist. She would obviously be best off [facility] but wer are unable to transfer her now. 05/16/21 she seems to be responding well to having had the abscess drained and to antibiotics. Her white blood count is now down to 13,000. (2) Acute on chronic pancreatitis: Code(s): K85.90 - Acute pancreatitis without necrosis or infection, unspecified; K86.1 - Other chronic pancreatitis Status: Acute Assessment and Plan: She has had multiple attacks of pancreatitis. Alcohol was the initial factor and apparently Responsible for the subsequent recurrences. surprising the liver enzymes are normal except for elevated alkaline phosphatase at 189. Lipase is 396. Explain to the patient that this is quite serious. I told her that in some cases pancreatic debridement by a surgeon is necessary. She is quite tender, a little more so since the percutaneous drain was placed. She has had several doses of hydromorphone. 05/16/21 the plan is continue the drain for now and continue antibiotics. I would like for her to follow-up with Dr. Vera as soon as possible after discharge. (3) Acute renal failure: Qualifiers: Acute renal failure type: unspecified Qualified Code(s): N17.9 - Acute kidney failure, unspecified Code(s): N17.9 - Acute kidney failure, unspecified Status: Acute Assessment and Plan: Her creatinine clearance is only 10. Hopefully this will improve with rehydration as we do not have baseline numbers on her . Today creatinine clearance is 15. (4) Hypokalemia: Code(s): E87.6 - Hypokalemia Status: Acute Assessment and Plan: this has already been addressed with potassium infusion (5) Sepsis: Qualifiers: Acute renal failure type: unspecified Sepsis acute organ dysfunction status: with acute organ dysfunction Sepsis type: sepsis due to unspecified organism Severe sepsis acute organ dysfunction type: acute renal failure Severe sepsis shock status: without septic shock Qualified Code(s): A41.9 - Sepsis, unspecified organism; R65.20 - Severe sepsis without septic shock; N17.9 - Acute kidney failure, unspecified Code(s): A41.9 - Sepsis, unspecified organism Status: Acute Assessment and Plan: the source of her infection and leukocytosis is obviously the abscess or abscesses. On imipenem would be ideal for penetration of pancreatic tissue but per pharmacy she will need to have improvement in her creatinine clearance before she should have that drug. Now that she has a creatinine clearance of 15 this we could consider switching time the [place] but I do not know that it is necessary given the fact that she seems to be responding to current therapy (6) Weight loss: Code(s): R63.4 - Abnormal weight loss Status: Acute Assessment and Plan: This is been a gradual process due to her chronic pancreatitis. We will discuss with her the importance of a healthy diet. I offered her advancing the diet but she states she is happy with liquids for now Subjective Date/time seen: 05/16/21 06:53 HPI: Chio Cunningham is a 40 year old female who presented yesterday emergency room with severe abdominal pain. She states that she has had pain for at least 1 month. In March she was in the emergency room at [facility]. She believes that that is where she had her last CT scan. They t
[2021-05-16] MEDS: POTASSIUM CHLORIDE INJ 40 MEQ in SODIUM CHLORIDE 0.9% IV 500 ML 130 MEQ IVPB (08:09)
[2021-05-16] MEDS: PANTOPRAZOLE SODIUM IV 40 MG VIAL IV PUSH ×2 (08:10→20:43)
--- NOTE | 2021-05-16 11:52 | PM.IMPN ---
Progress Note: A&P Assessment and Plan (1) Sepsis: Qualifiers: Acute renal failure type: unspecified Sepsis acute organ dysfunction status: with acute organ dysfunction Sepsis type: sepsis due to unspecified organism Severe sepsis acute organ dysfunction type: acute renal failure Severe sepsis shock status: without septic shock Qualified Code(s): A41.9 - Sepsis, unspecified organism; R65.20 - Severe sepsis without septic shock; N17.9 - Acute kidney failure, unspecified Code(s): A41.9 - Sepsis, unspecified organism Status: Acute Assessment and Plan: Patient has severe sepsis on admission with ANGELI due to acute on chronic pancreatitis with pancreatic/hepatic abscess and noted with leukocytosis, tachycardia and ANGELI. The BP was low by EMS at 68/42 but better with fluids. BP stable and even elevated at times. The patient was started on empiric antibiotic therapy with Zosyn in the ER. IR was consulted with drain placed in the hepatic abscess on 05/15/21. WBC trending down and no fevers. Blood Cx NGTD. Urine Cx negative. Abscess cultures growing GPC and mixed bacterial lety. Continue IV abx. Follow up on culture results. (2) Abscess, hepatic: Code(s): K75.0 - Abscess of liver Status: Deleted Assessment and Plan: CT scan showing acute on chronic pancreatitis with associated inflammation of the distal stomach and abscess tracking from the body of the pancreas to the liver margin. The abscess measures 1.1 x 3.3 x 2.0 cm adjacent to the pancreas and 9.7 x 6.2 x 7.2 cm at the right lateral inferior margin of the liver. As above with drain placed 05/15. GI consulted and agreed with decision to transfer patient but given the current bed situation with the COVID pandemic, transferring patients has been difficult. Appreciate GI input. (3) Pancreatic abscess: Code(s): K85.90 - Acute pancreatitis without necrosis or infection, unspecified Status: Acute Assessment and Plan: As above. Hopefully this connect and will drain appropriately with the current drain but may need 2nd drain placement. Plan for follow up imaging once the output declines. (4) Acute on chronic pancreatitis: Code(s): K85.90 - Acute pancreatitis without necrosis or infection, unspecified; K86.1 - Other chronic pancreatitis Status: Acute Assessment and Plan: [place] patient with acute on chronic pancreatitis. CT scan showing ac/ch pancreatitis but lipase 396. Pancreas may not be able to mount higher levels. Repeat lipase normal now. Continue full liquid diet. GI consulted and appreciate their input. (5) Acute renal failure: Qualifiers: Acute renal failure type: unspecified Qualified Code(s): N17.9 - Acute kidney failure, unspecified Code(s): N17.9 - Acute kidney failure, unspecified Status: Acute Assessment and Plan: Patient has ANGELI most likely due to dehydration complicated by severe sepsis with possible ATN from HoTN. Patient received 3 L of normal saline in the ER and remains on continuous IV fluid hydration. BP better controlled. Cr trending down to 2.3 today. UOP improved as well. Renal US was unremarkable. Continue to monitor. (6) GERD (gastroesophageal reflux disease): Code(s): K21.9 - Gastro-esophageal reflux disease without esophagitis Status: Acute Assessment and Plan: Patient with GERD symptoms. She is toelrating oral intake. Continue Protonix. Elevate HOB. Consider Carafate if persistent symptoms. (7) Chronic hypercapnic respiratory failure: Code(s): J96.12 - Chronic respiratory failure with hypercapnia Status: Acute Assessment and Plan: Patient has evidence of chronic hypercapnic respiratory failure and history of heavy tobacco use. The patient has hypoxic as well on the ABG. Patient probably with underlying COPD. Continue supplemental oxygen to maintain oxygen saturations 88-92%. Currently on room air so will
[2021-05-16] MEDS: HYDROmorphone HCL INJ (*CRX) 1 MG/ML SYR 0.5 MG IV PUSH ×2 (13:39→20:44)
--- NOTE | 2021-05-16 13:44 | PM.PNGS ---
Progress Note: A&P Assessment and Plan (1) Pancreatic abscess: Code(s): K85.90 - Acute pancreatitis without necrosis or infection, unspecified Status: Acute Assessment and Plan: Monitor drain output Continue current antibiotics Encourage increased activity (2) Acute on chronic pancreatitis: Code(s): K85.90 - Acute pancreatitis without necrosis or infection, unspecified; K86.1 - Other chronic pancreatitis Status: Acute (3) Acute renal failure: Qualifiers: Acute renal failure type: unspecified Qualified Code(s): N17.9 - Acute kidney failure, unspecified Code(s): N17.9 - Acute kidney failure, unspecified Status: Acute Subjective Subjective Date/Time Seen: 05/16/21 13:44 Interval history: Feeling bloated. Passing some flatus. Not hungry. Pain controlled. No fevers. Exam GI: GI Palp: Yes Soft to palpation, Yes Tenderness to palpation present (GI) (minimal generalized) and No Guarding due to palpation present (GI) Percussion: Yes normal to percussion Auscultation: normal bowel sounds Objective Data Vital Signs Vital Signs: Vital Signs - 24 hr 05/15/21 16:26 05/15/21 17:24 05/15/21 18:00 Temperature 36.4 C Pulse Rate 85 98 93 Respiratory Rate 20 16 Blood Pressure 116/80 127/98 H Pulse Oximetry 98 92 05/15/21 19:41 05/15/21 19:48 05/15/21 20:00 Temperature 36.5 C Pulse Rate 95 97 98 Respiratory Rate 20 Blood Pressure 129/95 H Pulse Oximetry 100 99 05/15/21 22:00 05/15/21 23:49 05/16/21 00:00 Temperature 36.7 C Pulse Rate 107 H 92 94 Respiratory Rate 18 Blood Pressure 127/96 H Pulse Oximetry 97 05/16/21 02:00 05/16/21 04:00 05/16/21 06:00 Temperature 36.4 C Pulse Rate 86 95 90 Respiratory Rate 18 Blood Pressure 143/91 H Pulse Oximetry 98 05/16/21 08:00 05/16/21 10:00 05/16/21 10:10 Temperature 36.4 C Pulse Rate 76 80 95 Respiratory Rate 16 18 Blood Pressure 134/101 H Pulse Oximetry 100 05/16/21 10:13 05/16/21 10:18 05/16/21 12:00 Temperature 36.5 C Pulse Rate 96 84 Respiratory Rate 18 16 Blood Pressure 139/98 H Pulse Oximetry 98 100 Intake/Output Intake/Output: Intake & Output 05/13/21 05/14/21 05/15/21 05/16/21 23:59 23:59 23:59 23:59 Intake Total 1000 5430 2920 Output Total 30 600 Balance 1000 5400 2320 Meds/Results Medications: Active Medications Generic Name Dose Route Start Last Admin Trade Name Freq PRN Reason Stop Dose Admin Albuterol 5 mg 05/16/21 12:08 Albuterol Sulfate Neb 2.5 Mg/0.5 Ml Inh INHALATION Q6HRT PRN Shortness Of Breath Famotidine 20 mg 05/16/21 21:00 Famotidine 20 Mg Tablet PO HS ELIANE Hydromorphone HCl 0.5 mg 05/15/21 01:54 05/16/21 13:39 Hydromorphone Hcl Inj (*Crx) 1 Mg/Ml Syr IV PUSH 0.5 mg Q4H PRN Administration Pain Rated 7-10 Piperacillin Sod/Tazobactam Sod 2.25 gm in 50 mls @ 100 mls/hr 05/15/21 08:00 05/16/21 08:40 Zosyn 2.25 Gm/D5w 50 Ml IVPB Infused Q8H ELIANE Infusion Sodium Chloride 1,000 mls @ 125 mls/hr 05/15/21 01:55 05/16/21 13:39 Normal Saline Iv IV CONT 125 mls/hr .Q8H ELIANE Administration Ipratropium [place] 0.5 mg 05/16/21 12:08 Ipratropium Br 0.02% Inh Soln 0.5 Mg/2.5 Ml Vial INHALATION Q6HRT PRN Shortness Of Breath Pantoprazole Sodium 40 mg 05/15/21 21:00 05/16/21 08:10 Pantoprazole Sodium Iv 40 Mg Vial IV PUSH 40 mg Q12HR ELIANE Administration Radiology Results: ITS Impressions Abdomen/Pelvis CT 05/15/21 07:09 IMPRESSION: 1. Acute on chronic pancreatitis with associated inflammation of the distal stomach and abscess tracking from the body of the pancreas to the liver margin. The abscess measures 1.1 x 3.3 x 2.0 cm adjacent to the pancreas and 9.7 x 6.2 x 7.2 cm at the right lateral inferior margin of the liver. ADDENDUM: 05/15/21 0929 The gallbladder is contracted. Catheter Placement CT 05/15/21 11:
[2021-05-16 14:00] LABS: Potassium 3.5 mmol/L (3.4-5.0)
[2021-05-16] MEDS: FAMOTIDINE 20 MG TABLET PO (20:43)
[2021-05-17] VITALS (11 sets, daily range): BP systolic 117–140; BP diastolic 85–105; PULSE 58–98; RESP 16–20; TEMP 36.1–36.7; O2SAT 95–100
[2021-05-17] MEDS: HYDROmorphone HCL INJ (*CRX) 1 MG/ML SYR 0.5 MG IV PUSH ×3 (02:27→20:40)
[2021-05-17] MEDS: SODIUM CHLORIDE 0.9% IV 1,000 ML 125 ML IV CONT (04:32)
[2021-05-17 05:22] LABS: Basophils Percent Auto 0.2 % (0.2-1.2); Eosinophils Absolute Auto 0.1 K/mm3 (0-0.3); Eosinophils Percent Auto 0.9 % (0-4.4); Hematocrit 28.8 % (37.0-47.0); Hemoglobin 9.3 g/dL (12.0-15.0); Immature Granulocyte Absolute 0.12 K/mm3 (0.00-0.031); Immature Granulocyte Percent A 1.3 % (0-0.5); Lymphocytes Absolute Auto 3.17 K/mm3 (0.9-3.2); Mean Corpuscular HGB Conc 32.3 g/dl (32-36); Mean Corpuscular Hemoglobin 30.9 pg (26-34); Mean Corpuscular Volume 95.7 fl (80-100); Mean Platelet Volume 9.6 fl (7.4-10.4); Monocytes Absolute Auto 0.5 K/mm3 (0.1-0.6); Monocytes Percent Auto 5.3 % (2.6-8.5); Neutrophils Absolute Auto 5.7 K/mm3 (1.3-6.7); Neutrophils Percent Auto 59.3 % (45.5-73.1); Platelet Count Result 433 k/mm3 (150-375); Red Blood Count 3.01 M/mm3 (4.2-5.4); Red Cell Distribution Width 14.7 % (11.5-14.5); White Blood Count 9.6 K/mm3 (4.5-10.0)
[2021-05-17 05:32] LABS: Alanine Aminotransferase 16 U/L (4-35); Albumin Level 2.8 g/dL (3.5-5.1); Alkaline Phosphatase 97 U/L (38-126); Anion Gap 4 mmol/L (8-16); Aspartate Amino Transferase 28 U/L (14-36); Bilirubin,Total 0.4 mg/dL (0.2-1.3); Blood Urea Nitrogen 25 mg/dL (7-17); Calcium 7.8 mg/dL (8.4-10.2); Carbon Dioxide 29 mmol/L (22-30); Chloride 103 mmol/L (98-107); Estimated CRCL calculation 32 ml/min; Estimated Glomerular Filt Rate 36; Glucose 78 mg/dL (65-110); Lipase 151 U/L (23-300); Magnesium 1.6 mg/dL (1.6-2.3); Phosphorus 2.5 mg/dL (2.5-4.5); Potassium 3.5 mmol/L (3.4-5.0); Sodium 136 mmol/L (137-145)
[2021-05-17] MEDS: PANTOPRAZOLE SODIUM IV 40 MG VIAL IV PUSH ×2 (08:51→20:37)
--- NOTE | 2021-05-17 10:59 | PM.IMPN ---
Progress Note: A&P Assessment and Plan (1) Sepsis: Qualifiers: Acute renal failure type: unspecified Sepsis acute organ dysfunction status: with acute organ dysfunction Sepsis type: sepsis due to unspecified organism Severe sepsis acute organ dysfunction type: acute renal failure Severe sepsis shock status: without septic shock Qualified Code(s): A41.9 - Sepsis, unspecified organism; R65.20 - Severe sepsis without septic shock; N17.9 - Acute kidney failure, unspecified Code(s): A41.9 - Sepsis, unspecified organism Status: Acute Assessment and Plan: Patient has severe sepsis on admission with ANGELI due to acute on chronic pancreatitis with pancreatic/hepatic abscess and noted with leukocytosis, tachycardia and ANGELI. The BP was low by EMS at 68/42 but better with fluids. BP stable and even elevated at times. The patient was started on empiric antibiotic therapy with Zosyn in the ER. IR was consulted with drain placed in the hepatic abscess on 05/15/21. WBC normal now and no fevers. Blood Cx NGTD. Urine Cx negative. Abscess cultures growing GPC and mixed bacterial lety. Continue IV abx. Follow up on culture results. (2) Abscess, hepatic: Code(s): K75.0 - Abscess of liver Status: Deleted Assessment and Plan: CT scan showing acute on chronic pancreatitis with associated inflammation of the distal stomach and abscess tracking from the body of the pancreas to the liver margin. The abscess measures 1.1 x 3.3 x 2.0 cm adjacent to the pancreas and 9.7 x 6.2 x 7.2 cm at the right lateral inferior margin of the liver. As above with drain placed 05/15. GI consulted and agreed with decision to transfer patient but given the current bed situation with the COVID pandemic, transferring patients has been difficult. Spoke with sap basis consultant at [facility] 05/16/21. Findings discussed. No evidence of acute gastric outlet obstruction. He did recommend patient following up in the clinic once she is well enough for discharge. Appreciate GI input. (3) Pancreatic abscess: Code(s): K85.90 - Acute pancreatitis without necrosis or infection, unspecified Status: Acute Assessment and Plan: As above. Hopefully this connects with the hepatic abscess and will drain appropriately with the current drain but may need 2nd drain placement. Plan for follow up imaging once the output declines. (4) Acute on chronic pancreatitis: Code(s): K85.90 - Acute pancreatitis without necrosis or infection, unspecified; K86.1 - Other chronic pancreatitis Status: Acute Assessment and Plan: [place] patient with acute on chronic pancreatitis. CT scan showing ac/ch pancreatitis but lipase 396. Pancreas may not be able to mount higher levels. Repeat lipase normal now. Continue full liquid diet. GI consulted and appreciate their input. Consider advancing diet. (5) Acute renal failure: Qualifiers: Acute renal failure type: unspecified Qualified Code(s): N17.9 - Acute kidney failure, unspecified Code(s): N17.9 - Acute kidney failure, unspecified Status: Acute Assessment and Plan: Patient has ANGELI most likely due to dehydration complicated by severe sepsis with possible ATN from HoTN. Patient received 3 L of normal saline in the ER and remains on continuous IV fluid hydration. Renal US was unremarkable. UOP improved as well. Cr trending down daily to 1.6 today. Continue to monitor. (6) GERD (gastroesophageal reflux disease): Code(s): K21.9 - Gastro-esophageal reflux disease without esophagitis Status: Acute Assessment and Plan: Patient with GERD symptoms. She is tolerating oral intake. Order in place to have HOb elevated. Symptoms slightly better. Continue Protonix and Pepcid. Advance diet per GenSurg. (7) Chronic hypercapnic respiratory failure: Code(s): J96.12 - Chronic respiratory failure with hypercapnia Status: Acute Assessment and Plan: [place]
[2021-05-17] MEDS: MAGNESIUM OXIDE 400 MG TABLET PO (12:53)
[2021-05-17] MEDS: POTASSIUM CHLORIDE 20 MEQ TABLET 40 MEQ PO (12:53)
--- NOTE | 2021-05-17 14:30 | PM.PNGS ---
Progress Note: A&P Assessment and Plan (1) Pancreatic abscess: Code(s): K85.90 - Acute pancreatitis without necrosis or infection, unspecified Status: Acute Assessment and Plan: Advance to regular diet. Continue monitoring drain output. (2) Acute on chronic pancreatitis: Code(s): K85.90 - Acute pancreatitis without necrosis or infection, unspecified; K86.1 - Other chronic pancreatitis Status: Acute (3) Acute renal failure: Qualifiers: Acute renal failure type: unspecified Qualified Code(s): N17.9 - Acute kidney failure, unspecified Code(s): N17.9 - Acute kidney failure, unspecified Status: Acute Subjective Subjective Date/Time Seen: 05/17/21 14:30 Interval history: Pain controlled. No fevers. Tolerating full liquids. Bloating improved. Exam GI: Inspection: non-distended GI Palp: Yes Soft to palpation and Yes Tenderness to palpation present (GI) (around drain) Other: Pigtail drain with minimal purulent output. Objective Data Vital Signs Vital Signs: Vital Signs - 24 hr 05/16/21 16:00 05/16/21 18:00 05/16/21 19:49 Temperature 36.5 C 36.4 C L Pulse Rate 88 92 94 Respiratory Rate 16 16 Blood Pressure 129/84 121/89 Pulse Oximetry 100 100 05/16/21 20:00 05/16/21 22:00 05/16/21 22:18 Temperature Pulse Rate 71 85 Respiratory Rate Blood Pressure Pulse Oximetry 92 05/16/21 23:25 05/17/21 00:00 05/17/21 02:00 Temperature 36.5 C Pulse Rate 81 76 64 Respiratory Rate 16 Blood Pressure 124/91 H Pulse Oximetry 92 05/17/21 04:00 05/17/21 06:00 05/17/21 08:00 Temperature 36.7 C 36.1 C L Pulse Rate 75 74 98 Respiratory Rate 20 20 Blood Pressure 121/93 H 139/100 H Pulse Oximetry 98 100 05/17/21 10:00 05/17/21 12:00 Temperature 36.3 C L Pulse Rate 91 61 Respiratory Rate 16 Blood Pressure 124/94 H Pulse Oximetry 100 Intake/Output Intake/Output: Intake & Output 05/14/21 05/15/21 05/16/21 05/17/21 23:59 23:59 23:59 23:59 Intake Total 1000 5430 4940 1525 Output Total 30 1400 910 Balance 1000 5400 3540 615 Meds/Results Medications: Active Medications Generic Name Dose Route Start Last Admin Trade Name Freq PRN Reason Stop Dose Admin Albuterol 5 mg 05/16/21 12:08 Albuterol Sulfate Neb 2.5 Mg/0.5 Ml Inh INHALATION Q6HRT PRN Shortness Of Breath Bisacodyl 10 mg 05/16/21 13:46 Bisacodyl 5 Mg Tablet Ec PO QAM PRN Constipation/Bloating Famotidine 20 mg 05/16/21 21:00 05/16/21 20:43 Famotidine 20 Mg Tablet PO 20 mg HS ELIANE Administration Hydromorphone HCl 0.5 mg 05/15/21 01:54 05/17/21 09:05 Hydromorphone Hcl Inj (*Crx) 1 Mg/Ml Syr IV PUSH 0.5 mg Q4H PRN Administration Pain Rated 7-10 Piperacillin Sod/Tazobactam Sod 2.25 gm in 50 mls @ 100 mls/hr 05/15/21 08:00 05/17/21 08:51 Zosyn 2.25 Gm/D5w 50 Ml IVPB 100 mls/hr Q8H ELIANE Administration Sodium Chloride 1,000 mls @ 70 mls/hr 05/15/21 01:55 05/17/21 08:43 Normal Saline Iv IV CONT 70 mls/hr .[id number] ELIANE Infusion Ipratropium [place] 0.5 mg 05/16/21 12:08 Ipratropium Br 0.02% Inh Soln 0.5 Mg/2.5 Ml Vial INHALATION Q6HRT PRN Shortness Of Breath Magnesium Oxide 400 mg 05/17/21 11:15 05/17/21 12:53 Magnesium Oxide 400 Mg Tablet PO 400 mg DAILY ELIANE Administration Melatonin 3 mg 05/17/21 21:00 Melatonin 3 Mg Tablet PO HS ELIANE Pantoprazole Sodium 40 mg 05/15/21 21:00 05/17/21 08:51 Pantoprazole Sodium Iv 40 Mg Vial IV PUSH 40 mg Q12HR ELIANE Administration Radiology Results: ITS Impressions Abdomen/Pelvis CT 05/15/21 07:09 IMPRESSION: 1. Acute on chronic pancreatitis with associated inflammation of the distal stomach and abscess tracking from the body of the pancreas to the liver margin. The abscess measures 1.1 x 3.3 x 2.0 cm adjacent to the pancreas and 9.7 x 6.2 x 7.2 cm at the right lateral inferior margin of the suzi
[2021-05-17] MEDS: SODIUM CHLORIDE 0.9% IV 1,000 ML 70 ML IV CONT (16:42)
[2021-05-17] MEDS: MELATONIN 3 MG TABLET PO (20:37)
[2021-05-17] MEDS: FAMOTIDINE 20 MG TABLET PO (20:37)
[2021-05-18 00:26] VITALS: BP 118/87; PULSE 62; RESP 16; TEMP 36.5; O2SAT 99
[2021-05-18] MEDS: HYDROmorphone HCL INJ (*CRX) 1 MG/ML SYR 0.5 MG IV PUSH ×5 (00:42→20:19)
[2021-05-18 04:11] VITALS: BP 130/95; PULSE 65; RESP 18; TEMP 36.2; O2SAT 100
--- NOTE | 2021-05-18 04:24 | PC.NURSE ---
Pt recieved from [facility] [place] at 4725.
--- NOTE | 2021-05-18 05:11 | PC.NURSE ---
This patient, Chio Cunningham, was transferred to [facility] on 05/18/21 at 0355. Personal belongings sent with patient. Report given to Shelly BEAULIEU. Appropriate documentation sent with patient.
[2021-05-18 06:15] LABS: Hematocrit 29.1 % (37.0-47.0); Hemoglobin 9.8 g/dL (12.0-15.0); Mean Corpuscular HGB Conc 33.7 g/dl (32-36); Mean Corpuscular Hemoglobin 31.6 pg (26-34); Mean Corpuscular Volume 93.9 fl (80-100); Mean Platelet Volume 9.9 fl (7.4-10.4); Platelet Count Result 419 k/mm3 (150-375); Red Cell Distribution Width 14.6 % (11.5-14.5); White Blood Count 8.3 K/mm3 (4.5-10.0)
[2021-05-18 06:28] LABS: Albumin Level 2.7 g/dL (3.5-5.1); Anion Gap 4 mmol/L (8-16); Blood Urea Nitrogen 16 mg/dL (7-17); Calcium 7.2 mg/dL (8.4-10.2); Carbon Dioxide 24 mmol/L (22-30); Chloride 104 mmol/L (98-107); Estimated CRCL calculation 43 ml/min; Estimated Glomerular Filt Rate 50; Glucose 93 mg/dL (65-110); Magnesium 1.3 mg/dL (1.6-2.3); Phosphorus 2.5 mg/dL (2.5-4.5); Potassium 4.3 mmol/L (3.4-5.0); Sodium 132 mmol/L (137-145)
[2021-05-18] MEDS: ENOXAPARIN 40 MG/0.4 ML SYRINGE SUB-Q (08:29)
[2021-05-18] MEDS: MAGNESIUM SULF 2 GM/WATER 50ML 2 GM/50 ML BAG IVPB (08:29)
[2021-05-18] MEDS: MAGNESIUM OXIDE 400 MG TABLET PO (08:30)
[2021-05-18] MEDS: PANTOPRAZOLE SODIUM IV 40 MG VIAL IV PUSH ×2 (08:30→20:18)
[2021-05-18] MEDS: SODIUM CHLORIDE 0.9% IV 1,000 ML 70 ML IV CONT (08:31)
--- NOTE | 2021-05-18 10:35 | PM.PNGS ---
Progress Note: A&P Assessment and Plan (1) Pancreatic abscess: Code(s): K85.90 - Acute pancreatitis without necrosis or infection, unspecified Status: Acute Assessment and Plan: Continue monitoring drain output OK to discharge with drain from surgical standpoint Will plan to repeat a CT before removing drain--my office will call patient to arrange as outpatient. (2) Acute on chronic pancreatitis: Code(s): K85.90 - Acute pancreatitis without necrosis or infection, unspecified; K86.1 - Other chronic pancreatitis Status: Acute (3) Acute renal failure: Qualifiers: Acute renal failure type: unspecified Qualified Code(s): N17.9 - Acute kidney failure, unspecified Code(s): N17.9 - Acute kidney failure, unspecified Status: Acute Subjective Subjective Date/Time Seen: 05/18/21 10:35 Interval history: Patient still feeling a little bloated. Tolerating diet and bowels moving. No fevers. Exam GI: Other: Pigtail drain with minimal serous output Objective Data Vital Signs Vital Signs: Vital Signs - 24 hr 05/17/21 12:00 05/17/21 14:00 05/17/21 16:00 Temperature 36.3 C L 36.7 C Pulse Rate 71 77 60 Respiratory Rate 16 18 Blood Pressure 124/94 H 117/85 Pulse Oximetry 100 100 05/17/21 18:00 05/17/21 19:33 05/18/21 00:26 Temperature 36.5 C Pulse Rate 74 78 62 Respiratory Rate 16 16 Blood Pressure 140/105 H 118/87 Pulse Oximetry 100 99 05/18/21 04:11 Temperature 36.2 C L Pulse Rate 65 Respiratory Rate 18 Blood Pressure 130/95 H Pulse Oximetry 100 Intake/Output Intake/Output: Intake & Output 05/15/21 05/16/21 05/17/21 05/18/21 23:59 23:59 23:59 23:59 Intake Total 5430 4940 3804 1386 Output Total 30 1400 1240 665 Balance 5400 4200 1725 721 Meds/Results Medications: Active Medications Generic Name Dose Route Start Last Admin Trade Name Freq PRN Reason Stop Dose Admin Albuterol 5 mg 05/16/21 12:08 Albuterol Sulfate Neb 2.5 Mg/0.5 Ml Inh INHALATION Q6HRT PRN Shortness Of Breath Bisacodyl 10 mg 05/16/21 13:46 Bisacodyl 5 Mg Tablet Ec PO QAM PRN Constipation/Bloating Enoxaparin Sodium 40 mg 05/18/21 09:00 05/18/21 08:29 Enoxaparin 40 Mg/0.4 Ml Syringe SUB-Q 40 mg DAILY ELIANE Administration Famotidine 20 mg 05/16/21 21:00 05/17/21 20:37 Famotidine 20 Mg Tablet PO 20 mg HS ELIANE Administration Hydromorphone HCl 0.5 mg 05/15/21 01:54 05/18/21 09:55 Hydromorphone Hcl Inj (*Crx) 1 Mg/Ml Syr IV PUSH 0.5 mg Q4H PRN Administration Pain Rated 7-10 Piperacillin Sod/Tazobactam Sod 2.25 gm in 50 mls @ 100 mls/hr 05/15/21 08:00 05/18/21 10:23 Zosyn 2.25 Gm/D5w 50 Ml IVPB Infused Q8H ELIANE Infusion Sodium Chloride 1,000 mls @ 70 mls/hr 05/15/21 01:55 05/18/21 08:31 Normal Saline Iv IV CONT 70 mls/hr .[id number] ELIANE Administration Ipratropium [place] 0.5 mg 05/16/21 12:08 Ipratropium Br 0.02% Inh Soln 0.5 Mg/2.5 Ml Vial INHALATION Q6HRT PRN Shortness Of Breath Magnesium Oxide 400 mg 05/17/21 11:15 05/18/21 08:30 Magnesium Oxide 400 Mg Tablet PO 400 mg DAILY ELIANE Administration Melatonin 3 mg 05/17/21 21:00 05/17/21 20:37 Melatonin 3 Mg Tablet PO 3 mg HS ELIANE Administration Pantoprazole Sodium 40 mg 05/15/21 21:00 05/18/21 08:30 Pantoprazole Sodium Iv 40 Mg Vial IV PUSH 40 mg Q12HR ELIANE Administration Radiology Results: ITS Impressions Abdomen/Pelvis CT 05/15/21 07:09 IMPRESSION: 1. Acute on chronic pancreatitis with associated inflammation of the distal stomach and abscess tracking from the body of the pancreas to the liver margin. The abscess measures 1.1 x 3.3 x 2.0 cm adjacent to the pancreas and 9.7 x 6.2 x 7.2 cm at the right lateral inferior margin of the liver. ADDENDUM: 05/15/21 0929 The gallbladder is contracted. Catheter Placement CT 05/15/21 11:22 IMPRESSION: 1. Successful CT-guid
--- NOTE | 2021-05-18 10:47 | PCNFU ---
Addendum entered by Dinah Guerra RD, LDN 05/18/21 12:11: Educated on Pancreatitis Nutrition. See Nutritional Teaching Intervention. Original Note: Nutrition Follow-Up Complete: Inadequate oral intake related to hepatic abscess as evidenced by reported intake of 25% Goal: Pt to meet 75% of estimated nutritional needs Patient has met goal. No new goal. Pt current nutrition is Regular with Ensure compact BID. Last recorded weight is 48.7 kg, up from 39.7 kg on admit. Bowel Motility: No BM to report. Labs Reviewed:Alb 2.7, Na 132, Hgb 9.8,Hct 29.1,Cr 1.2,GFR 50, Mg 1.3 Meds Noted:NS, Protonix, Zosyn, Pepcid, Mag oxide, Lovenox, Dilaudid Skin: WNL Additional Notes: Patient currently on a regular diet with ensure compact BID. Oral intake greater than 75% of meals. Diet supplement of ensure compact is providing 220 kcals and 9 gms protein. Agree with diet orders. Will monitor labs, medication, wt, and reported intake every 7 days
--- NOTE | 2021-05-18 13:48 | PM.IMPN ---
Progress Note: A&P Assessment and Plan (1) Sepsis: Qualifiers: Acute renal failure type: unspecified Sepsis acute organ dysfunction status: with acute organ dysfunction Sepsis type: sepsis due to unspecified organism Severe sepsis acute organ dysfunction type: acute renal failure Severe sepsis shock status: without septic shock Qualified Code(s): A41.9 - Sepsis, unspecified organism; R65.20 - Severe sepsis without septic shock; N17.9 - Acute kidney failure, unspecified Code(s): A41.9 - Sepsis, unspecified organism Status: Acute Assessment and Plan: Patient has severe sepsis on admission with ANGELI due to acute on chronic pancreatitis with pancreatic/hepatic abscess and noted with leukocytosis, tachycardia and ANGELI. The BP was low by EMS at 68/42 but better with fluids. BP stable and even elevated at times. The patient was started on empiric antibiotic therapy with Zosyn in the ER. IR was consulted with drain placed in the hepatic abscess on 05/15/21. WBC normal now and no fevers. Blood Cx NGTD. Urine Cx negative. Abscess cultures growing EColi and Strept constellatus. Continue to monitor drain output. (2) Abscess, hepatic: Code(s): K75.0 - Abscess of liver Status: Deleted Assessment and Plan: CT scan showing acute on chronic pancreatitis with associated inflammation of the distal stomach and abscess tracking from the body of the pancreas to the liver margin. The abscess measures 1.1 x 3.3 x 2.0 cm adjacent to the pancreas and 9.7 x 6.2 x 7.2 cm at the right lateral inferior margin of the liver. As above with drain placed 05/15. GI consulted and agreed with decision to transfer patient but given the current bed situation with the COVID pandemic, transferring patients has been difficult. Spoke with exchange teller at [facility] 05/16/[facility]. Findings discussed. No evidence of acute gastric outlet obstruction. He did recommend patient following up in the clinic once she is well enough for discharge. Plan for now is patient to follow up with Gen[facility]urg after discharge for repeat imaging prior to drain removal. For liver abscess, recommendations are for 4-6 weeks of abx with at least 2 weeks of parenteral before changing to oral (need 4-6 weeks of parenteral if incompletely drained). (3) Pancreatic abscess: Code(s): K85.90 - Acute pancreatitis without necrosis or infection, unspecified Status: Acute Assessment and Plan: As above. Hopefully this connects with the hepatic abscess and will drain appropriately with the current drain but may need 2nd drain placement. Plan for follow up imaging once the output declines. (4) Acute on chronic pancreatitis: Code(s): K85.90 - Acute pancreatitis without necrosis or infection, unspecified; K86.1 - Other chronic pancreatitis Status: Acute Assessment and Plan: [place] patient with acute on chronic pancreatitis. CT scan showing ac/ch pancreatitis but lipase 396. Pancreas may not be able to mount higher levels. Repeat lipase normal now. She is tolerating oral intake. Continue current diet. GI consulted and appreciate their input. (5) Acute renal failure: Qualifiers: Acute renal failure type: unspecified Qualified Code(s): N17.9 - Acute kidney failure, unspecified Code(s): N17.9 - Acute kidney failure, unspecified Status: Acute Assessment and Plan: Patient has ANGELI most likely due to dehydration complicated by severe sepsis with possible ATN from [facility]. Patient received 3 L of normal saline in the ER and remains on continuous IV fluid hydration. Renal US was unremarkable. UOP improved as well. Cr trending down daily to 1.2 today. Continue to monitor. Will let IV fluids run out. (6) GERD (gastroesophageal reflux disease): Code(s): K21.9 - Gastro-esophageal reflux disease without esophagitis Status: Acute Assessment and Plan: Patient with GERD symptoms. She is tolerating oral intake. Order in plac
[2021-05-18 15:06] VITALS: BP 138/102; PULSE 82; RESP 12; TEMP 36.3; O2SAT 99
[2021-05-18 19:40] VITALS: BP 137/94; PULSE 63; RESP 16; TEMP 36.5; O2SAT 99
[2021-05-18] MEDS: MELATONIN 3 MG TABLET PO (20:18)
[2021-05-18] MEDS: FAMOTIDINE 20 MG TABLET PO (20:18)
[2021-05-19] MEDS: HYDROmorphone HCL INJ (*CRX) 1 MG/ML SYR 0.5 MG IV PUSH ×2 (01:49→08:21)
[2021-05-19 05:01] VITALS: BP 139/98; PULSE 78; RESP 16; TEMP 36.6; O2SAT 99
[2021-05-19 06:02] LABS: Anion Gap 3 mmol/L (8-16); Blood Urea Nitrogen 9 mg/dL (7-17); Calcium 7.9 mg/dL (8.4-10.2); Carbon Dioxide 26 mmol/L (22-30); Chloride 107 mmol/L (98-107); Estimated CRCL calculation 46 ml/min; Estimated Glomerular Filt Rate 55; Glucose 109 mg/dL (65-110); Magnesium 1.7 mg/dL (1.6-2.3); Potassium 3.7 mmol/L (3.4-5.0); Sodium 136 mmol/L (137-145)
[2021-05-19] MEDS: MAGNESIUM SULF 2 GM/WATER 50ML 2 GM/50 ML BAG IVPB (08:06)
[2021-05-19] MEDS: POTASSIUM CHLORIDE 20 MEQ TABLET PO (08:06)
[2021-05-19] MEDS: MAGNESIUM OXIDE 400 MG TABLET PO (08:07)
[2021-05-19] MEDS: ENOXAPARIN 40 MG/0.4 ML SYRINGE SUB-Q (08:07)
[2021-05-19] MEDS: PANTOPRAZOLE SODIUM IV 40 MG VIAL IV PUSH ×2 (08:07→20:00)
--- NOTE | 2021-05-19 11:08 | PM.IMPN ---
Progress Note: A&P Assessment and Plan (1) Sepsis: Qualifiers: Acute renal failure type: unspecified Sepsis acute organ dysfunction status: with acute organ dysfunction Sepsis type: sepsis due to unspecified organism Severe sepsis acute organ dysfunction type: acute renal failure Severe sepsis shock status: without septic shock Qualified Code(s): A41.9 - Sepsis, unspecified organism; R65.20 - Severe sepsis without septic shock; N17.9 - Acute kidney failure, unspecified Code(s): A41.9 - Sepsis, unspecified organism Status: Acute Assessment and Plan: Patient has severe sepsis on admission with ANGELI due to acute on chronic pancreatitis with pancreatic/hepatic abscess and noted with leukocytosis, tachycardia and ANGELI. The BP was low by EMS at 68/42 but better with fluids. BP stable and even elevated at times. The patient was started on empiric antibiotic therapy with Zosyn in the ER. IR was consulted with drain placed in the hepatic abscess on 05/15/21. WBC normal now and no fevers. Blood Cx NGTD. Urine Cx negative. Abscess cultures e. coli resistant to fluoroquinolones and ampicillin. Sepsis resolved. (2) Abscess, hepatic: Code(s): K75.0 - Abscess of liver Status: Deleted Assessment and Plan: CT scan showing acute on chronic pancreatitis with associated inflammation of the distal stomach and abscess tracking from the body of the pancreas to the liver margin. The abscess measures 1.1 x 3.3 x 2.0 cm adjacent to the pancreas and 9.7 x 6.2 x 7.2 cm at the right lateral inferior margin of the liver. As above with drain placed 05/15. GI consulted and agreed with decision to transfer patient but given the current bed situation with the COVID pandemic, transferring patients has been difficult. Hospitalist spoke with pearler at [facility] 05/16/[facility]. Findings discussed. No evidence of acute gastric outlet obstruction. He did recommend patient following up in the clinic once she is well enough for discharge. Abscess cultures e. coli resistant to fluoroquinolones and ampicillin. Continue pip/brianna (initiated 2/1 AM) (3) Pancreatic abscess: Code(s): K85.90 - Acute pancreatitis without necrosis or infection, unspecified Status: Acute Assessment and Plan: As above. This may be confluent with the hepatic abscess and lanie with the current drain but may need 2nd drain placement. Plan for follow up imaging once the output declines. (4) Acute on chronic pancreatitis: Code(s): K85.90 - Acute pancreatitis without necrosis or infection, unspecified; K86.1 - Other chronic pancreatitis Status: Acute Assessment and Plan: [place] patient with acute on chronic pancreatitis. CT scan showing ac/ch pancreatitis but lipase 396. Pancreas may not be able to mount higher levels. Repeat lipase normal now. Continue full liquid diet. GI consulted and appreciate their input. Consider advancing diet. (5) Acute renal failure: Qualifiers: Acute renal failure type: unspecified Qualified Code(s): N17.9 - Acute kidney failure, unspecified Code(s): N17.9 - Acute kidney failure, unspecified Status: Acute Assessment and Plan: Patient has ANGELI most likely due to dehydration complicated by severe sepsis with possible ATN from [facility]. Patient received 3 L of normal saline in the ER and remains on continuous IV fluid hydration. Renal US was unremarkable. 2/5 creatinine 1.1 (6) GERD (gastroesophageal reflux disease): Code(s): K21.9 - Gastro-esophageal reflux disease without esophagitis Status: Acute Assessment and Plan: Patient with GERD symptoms. She is tolerating oral intake. Order in place to have HOb elevated. Symptoms slightly better. Continue Protonix and Pepcid. Advance diet per GenSurg. (7) Chronic hypercapnic respiratory failure: Code(s): J96.12 - Chronic respiratory failure with hypercapnia Status: Acute Assessment and Dinesh
[2021-05-19 14:00] VITALS: BP 120/84; PULSE 72; RESP 15; TEMP 36.7; O2SAT 98
[2021-05-19] MEDS: oxyCODONE HCL (*CRX) 5 MG TAB IR PO ×2 (16:23→20:01)
[2021-05-19 20:00] VITALS: BP 132/97; PULSE 75; RESP 15; TEMP 36.6; O2SAT 99
[2021-05-19] MEDS: ONDANSETRON INJ 4 MG/2 ML VIAL IV PUSH (20:00)
[2021-05-19] MEDS: FAMOTIDINE 20 MG TABLET PO (20:01)
[2021-05-19] MEDS: MELATONIN 3 MG TABLET PO (20:01)
[2021-05-20 04:13] VITALS: BP 136/97; PULSE 80; RESP 16; TEMP 36.4; O2SAT 97
[2021-05-20] MEDS: oxyCODONE HCL (*CRX) 5 MG TAB IR PO ×3 (05:41→11:54)
[2021-05-20] MEDS: ONDANSETRON INJ 4 MG/2 ML VIAL IV PUSH ×3 (06:15→16:26)
[2021-05-20 06:21] LABS: Alanine Aminotransferase 12 U/L (4-35); Albumin Level 2.6 g/dL (3.5-5.1); Alkaline Phosphatase 86 U/L (38-126); Anion Gap 2 mmol/L (8-16); Aspartate Amino Transferase 18 U/L (14-36); Bilirubin,Total 0.3 mg/dL (0.2-1.3); Blood Urea Nitrogen 7 mg/dL (7-17); Calcium 8.1 mg/dL (8.4-10.2); Carbon Dioxide 28 mmol/L (22-30); Chloride 106 mmol/L (98-107); Estimated CRCL calculation 48 ml/min; Estimated Glomerular Filt Rate 55; Glucose 91 mg/dL (65-110); Magnesium 1.8 mg/dL (1.6-2.3); Potassium 3.9 mmol/L (3.4-5.0); Sodium 136 mmol/L (137-145)
[2021-05-20] MEDS: PANTOPRAZOLE SODIUM IV 40 MG VIAL IV PUSH ×2 (08:00→20:05)
[2021-05-20] MEDS: ENOXAPARIN 40 MG/0.4 ML SYRINGE SUB-Q (10:27)
--- NOTE | 2021-05-20 10:47 | PM.IMPN ---
Progress Note: A&P Assessment and Plan (1) Sepsis: Qualifiers: Acute renal failure type: unspecified Sepsis acute organ dysfunction status: with acute organ dysfunction Sepsis type: sepsis due to unspecified organism Severe sepsis acute organ dysfunction type: acute renal failure Severe sepsis shock status: without septic shock Qualified Code(s): A41.9 - Sepsis, unspecified organism; R65.20 - Severe sepsis without septic shock; N17.9 - Acute kidney failure, unspecified Code(s): A41.9 - Sepsis, unspecified organism Status: Acute Assessment and Plan: Patient has severe sepsis on admission with ANGELI due to acute on chronic pancreatitis with pancreatic/hepatic abscess and noted with leukocytosis, tachycardia and ANGELI. The BP was low by EMS at 68/42 but better with fluids. BP stable and even elevated at times. The patient was started on empiric antibiotic therapy with Zosyn in the ER. IR was consulted with drain placed in the hepatic abscess on 05/15/21. WBC normal now and no fevers. Blood Cx NGTD. Urine Cx negative. Abscess cultures e. coli resistant to fluoroquinolones and ampicillin. Sepsis resolved. (2) Abscess, hepatic: Code(s): K75.0 - Abscess of liver Status: Deleted Assessment and Plan: CT scan showing acute on chronic pancreatitis with associated inflammation of the distal stomach and abscess tracking from the body of the pancreas to the liver margin. The abscess measures 1.1 x 3.3 x 2.0 cm adjacent to the pancreas and 9.7 x 6.2 x 7.2 cm at the right lateral inferior margin of the liver. As above with drain placed 05/15. GI consulted and agreed with decision to transfer patient but given the current bed situation with the COVID pandemic, transferring patients has been difficult. Hospitalist spoke with internal affairs investigator at [facility] 05/16/[facility]. Findings discussed. No evidence of acute gastric outlet obstruction. He did recommend patient following up in the clinic once she is well enough for discharge. Abscess cultures e. coli resistant to fluoroquinolones and ampicillin. Continue pip/brianna (initiated 2 AM) Drain output 05/18 65 mL, 2 125 mL, 2/6 minimal with serosanguineous fluid 05/[address] scan of abdomen due to increased symptoms and decreased drain output (3) Pancreatic abscess: Code(s): K85.90 - Acute pancreatitis without necrosis or infection, unspecified Status: Acute Assessment and Plan: As above. This may be confluent with the hepatic abscess and lanie with the current drain but may need 2nd drain placement. Plan for follow up imaging once the output declines. (4) Acute on chronic pancreatitis: Code(s): K85.90 - Acute pancreatitis without necrosis or infection, unspecified; K86.1 - Other chronic pancreatitis Status: Acute Assessment and Plan: [place] patient with acute on chronic pancreatitis. CT scan showing ac/ch pancreatitis but lipase 396. Pancreas may not be able to mount higher levels. Repeat lipase normal. Not tolerating diet /09 13/ F/u CT abdomen (5) Acute renal failure: Qualifiers: Acute renal failure type: unspecified Qualified Code(s): N17.9 - Acute kidney failure, unspecified Code(s): N17.9 - Acute kidney failure, unspecified Status: Acute Assessment and Plan: Patient has ANGELI most likely due to dehydration complicated by severe sepsis with possible ATN from [facility]. Patient received 3 L of normal saline in the ER and remains on continuous IV fluid hydration. Renal US was unremarkable. 05/19 creatinine 1.1, 05/20 1.1 (6) GERD (gastroesophageal reflux disease): Code(s): K21.9 - Gastro-esophageal reflux disease without esophagitis Status: Acute Assessment and Plan: Patient with GERD symptoms. She is tolerating oral intake. Order in place to have HOb elevated. Symptoms slightly better. Continue Protonix and Pepcid. Advance diet per GenSurg. (7) Chronic hypercapnic respiratory failure:
--- NOTE | 2021-05-20 11:22 | PC.NURSE ---
Taken to ct scan per wheelchair.
[2021-05-20] MEDS: MAGNESIUM OXIDE 400 MG TABLET PO (11:52)
[2021-05-20 14:00] VITALS: BP 135/85; PULSE 69; RESP 16; TEMP 36.4; O2SAT 97
[2021-05-20] MEDS: HYDROmorphone HCL INJ (*CRX) 1 MG/ML SYR 0.5 MG IV PUSH ×2 (16:26→20:31)
[2021-05-20] MEDS: FAMOTIDINE 20 MG TABLET PO (20:04)
[2021-05-20] MEDS: MELATONIN 3 MG TABLET PO (20:04)
[2021-05-20 21:29] VITALS: BP 142/97; PULSE 65; RESP 16; TEMP 36.6; O2SAT 100
[2021-05-21] MEDS: HYDROmorphone HCL INJ (*CRX) 1 MG/ML SYR 0.5 MG IV PUSH ×6 (00:18→22:30)
[2021-05-21 05:39] LABS: Hematocrit 27.1 % (37.0-47.0); Hemoglobin 8.8 g/dL (12.0-15.0); Mean Corpuscular HGB Conc 32.5 g/dl (32-36); Mean Corpuscular Hemoglobin 31.5 pg (26-34); Mean Corpuscular Volume 97.1 fl (80-100); Mean Platelet Volume 10.2 fl (7.4-10.4); Platelet Count Result 352 k/mm3 (150-375); Red Blood Count 2.79 M/mm3 (4.2-5.4); Red Cell Distribution Width 15.2 % (11.5-14.5); White Blood Count 7.7 K/mm3 (4.5-10.0)
[2021-05-21 05:56] LABS: Alanine Aminotransferase 12 U/L (4-35); Albumin Level 2.5 g/dL (3.5-5.1); Alkaline Phosphatase 77 U/L (38-126); Anion Gap 1 mmol/L (8-16); Aspartate Amino Transferase 18 U/L (14-36); Bilirubin,Total 0.3 mg/dL (0.2-1.3); Blood Urea Nitrogen 6 mg/dL (7-17); Carbon Dioxide 28 mmol/L (22-30); Chloride 104 mmol/L (98-107); Estimated CRCL calculation 48 ml/min; Estimated Glomerular Filt Rate 55; Glucose 100 mg/dL (65-110); Lipase 88 U/L (23-300); Magnesium 1.5 mg/dL (1.6-2.3); Potassium 4.2 mmol/L (3.4-5.0); Sodium 133 mmol/L (137-145)
[2021-05-21 06:00] VITALS: BP 129/91; PULSE 76; RESP 18; TEMP 36.5; O2SAT 100
[2021-05-21] MEDS: MAGNESIUM SULF 2 GM/WATER 50ML 2 GM/50 ML BAG IVPB (08:21)
[2021-05-21] MEDS: ENOXAPARIN 40 MG/0.4 ML SYRINGE SUB-Q (08:21)
--- NOTE | 2021-05-21 11:40 | PM.PNGS ---
Progress Note: A&P Assessment and Plan (1) Pancreatic abscess: Code(s): K85.90 - Acute pancreatitis without necrosis or infection, unspecified Status: Acute Assessment and Plan: Reviewed CT from yesterday. Abscess nearly completely resolved. Possibly remove drain tomorrow if output remains minimal. Continue antibiotics. (2) Acute on chronic pancreatitis: Code(s): K85.90 - Acute pancreatitis without necrosis or infection, unspecified; K86.1 - Other chronic pancreatitis Status: Acute (3) Severe protein-calorie malnutrition: Code(s): E43 - Unspecified severe protein-calorie malnutrition Status: Acute (4) Constipation: Code(s): K59.00 - Constipation, unspecified Status: Acute Assessment and Plan: Stimulate bowels Subjective Subjective Date/Time Seen: 05/21/21 11:40 Interval history: Constipated and nauseated. Wants drain out soon. Exam GI: Inspection: non-distended GI Palp: Yes Soft to palpation and Yes Tenderness to palpation present (GI) (mostly epigastric and around drain) Objective Data Vital Signs Vital Signs: Vital Signs - 24 hr 05/20/21 14:00 05/20/21 21:29 05/21/21 06:00 Temperature 36.4 C L 36.6 C 36.5 C Pulse Rate 69 65 76 Respiratory Rate 16 16 18 Blood Pressure 135/85 142/97 H 129/91 H Pulse Oximetry 97 100 100 Intake/Output Intake/Output: Intake & Output 05/18/21 05/19/21 05/20/21 05/21/21 23:59 23:59 23:59 23:59 Intake Total 2626 965 1000 200 Output Total 665 2525 910 1000 Balance 1961 -1560 90 -800 Meds/Results Medications: Active Medications Generic Name Dose Route Start Last Admin Trade Name Freq PRN Reason Stop Dose Admin Albuterol 5 mg 05/16/21 12:08 Albuterol Sulfate Neb 2.5 Mg/0.5 Ml Inh INHALATION Q6HRT PRN Shortness Of Breath Bisacodyl 10 mg 05/16/21 13:46 Bisacodyl 5 Mg Tablet Ec PO QAM PRN Constipation/Bloating Enoxaparin Sodium 40 mg 05/18/21 09:00 05/21/21 08:21 Enoxaparin 40 Mg/0.4 Ml Syringe SUB-Q 40 mg DAILY ELIANE Administration Famotidine 20 mg 05/16/21 21:00 05/20/21 20:04 Famotidine 20 Mg Tablet PO 20 mg HS ELIANE Administration Hydromorphone HCl 0.5 mg 05/20/21 13:56 05/21/21 08:21 Hydromorphone Hcl Inj (*Crx) 1 Mg/Ml Syr IV PUSH 0.5 mg Q4H PRN Administration Pain Rated 7-10 Piperacillin/Tazobactam/Dextrose 3.375 gm in 50 mls @ 100 mls/hr 05/20/21 06:00 05/21/21 06:05 Zosyn 3.375 Gm/D5w 50ml Pm IVPB Infused Q6HR ELIANE Infusion Potassium Cl/Dextrose/Lact Ringer's 1,000 mls @ 60 mls/hr 05/20/21 17:35 05/20/21 18:37 Kcl 20 Meq/D5lr IV CONT 60 mls/hr .[id number] ELIANE Administration Ipratropium [place] 0.5 mg 05/16/21 12:08 Ipratropium Br 0.02% Inh Soln 0.5 Mg/2.5 Ml Vial INHALATION Q6HRT PRN Shortness Of Breath Magnesium Oxide 400 mg 05/17/21 11:15 05/21/21 08:22 Magnesium Oxide 400 Mg Tablet PO Not Given DAILY ELIANE Melatonin 3 mg 05/17/21 21:00 05/20/21 20:04 Melatonin 3 Mg Tablet PO 3 mg HS ELIANE Administration Ondansetron HCl 4 mg 05/19/21 17:54 05/20/21 16:26 Ondansetron Inj 4 Mg/2 Ml Vial IV PUSH 4 mg Q4H PRN Administration Nausea And Vomiting Pantoprazole Sodium 40 mg 05/21/21 09:00 05/21/21 08:22 Pantoprazole 40 Mg Tablet PO Not Given Q12HR [facility] Radiology Results: ITS Impressions Abdomen/Pelvis CT 05/15/21 07:09 IMPRESSION: 1. Acute on chronic pancreatitis with associated inflammation of the distal stomach and abscess tracking from the body of the pancreas to the liver margin. The abscess measures 1.1 x 3.3 x 2.0 cm adjacent to the pancreas and 9.7 x 6.2 x 7.2 cm at the right lateral inferior margin of the liver. ADDENDUM: 05/15/21 0929 The gallbladder is contracted. Catheter Placement CT 05/15/21 11:22 IMPRESSION: 1. Successful CT-guided perihepatic abscess drainage. 2. 7 mL light [place] fluid was sent for aerobic
[2021-05-21] MEDS: ONDANSETRON INJ 4 MG/2 ML VIAL IV PUSH ×2 (12:06→17:20)
[2021-05-21] MEDS: BISACODYL 5 MG TABLET EC 10 MG PO (12:06)
--- NOTE | 2021-05-21 13:49 | PM.IMPN ---
Progress Note: A&P Assessment and Plan (1) Sepsis: Qualifiers: Acute renal failure type: unspecified Sepsis acute organ dysfunction status: with acute organ dysfunction Sepsis type: sepsis due to unspecified organism Severe sepsis acute organ dysfunction type: acute renal failure Severe sepsis shock status: without septic shock Qualified Code(s): A41.9 - Sepsis, unspecified organism; R65.20 - Severe sepsis without septic shock; N17.9 - Acute kidney failure, unspecified Code(s): A41.9 - Sepsis, unspecified organism Status: Acute Assessment and Plan: Patient has severe sepsis on admission with leukocytosis, tachycardia, and ANGELI due to acute on chronic pancreatitis with pancreatic/hepatic abscess. The BP was low by EMS at 68/42 but better with fluids. BP stable and even elevated at times. The patient was started on empiric antibiotic therapy with Zosyn in the ER. IR was consulted with drain placed in the hepatic abscess on 05/15/21. WBC normal now and no fevers. Sepsis resolved. (2) Abscess, hepatic: Code(s): K75.0 - Abscess of liver Status: Deleted Assessment and Plan: CT scan showing acute on chronic pancreatitis with associated inflammation of the distal stomach and abscess tracking from the body of the pancreas to the liver margin. The abscess measures 1.1 x 3.3 x 2.0 cm adjacent to the pancreas and 9.7 x 6.2 x 7.2 cm at the right lateral inferior margin of the liver. Drain placed 05/15. GI consulted and agreed with decision to transfer patient but given the current bed situation with the COVID pandemic, transferring patients has been difficult. Hospitalist spoke with certified orthotist practice manager at [facility] 05/16/21. Findings discussed. No evidence of acute gastric outlet obstruction. He did recommend patient following up in the clinic once she is well enough for discharge. Abscess culture growing E. coli resistant to fluoroquinolones and ampicillin and Strept constellatus. CT Abd now showing near complete resolution of perihepatic abscess. Drain output minimal now. Continue pip/brianna (initiated 2/1 AM). (3) Pancreatic abscess: Code(s): K85.90 - Acute pancreatitis without necrosis or infection, unspecified Status: Acute Assessment and Plan: As above. This is probably confluent with the hepatic abscess and lanie with the current drain. (4) Acute on chronic pancreatitis: Code(s): K85.90 - Acute pancreatitis without necrosis or infection, unspecified; K86.1 - Other chronic pancreatitis Status: Acute Assessment and Plan: [place] patient with acute on chronic pancreatitis. CT scan showing ac/ch pancreatitis but lipase was 396. Pancreas may not be able to mount higher levels. Repeat lipase was normal. Repeat CT Abd 05/20/21 showing almost complete resolution of the abscess and again acute/chronic pancreatitis. Made NPO yesterday because she was not tolerating diet. Lipase normal today. Improved so will resume liquid diet. Follow. (5) Acute renal failure: Qualifiers: Acute renal failure type: unspecified Qualified Code(s): N17.9 - Acute kidney failure, unspecified Code(s): N17.9 - Acute kidney failure, unspecified Status: Acute Assessment and Plan: Patient has ANGELI most likely due to dehydration complicated by severe sepsis with possible ATN from [facility]. Patient received 3 L of normal saline in the ER and started on continuous IV fluid hydration. Renal US was unremarkable. Cr improved so IV fluids stopped. Cr down to 1.1 but stable. Either related to medications or patient with underlying CKD. Voiding well. Continue to follow. (6) GERD (gastroesophageal reflux disease): Code(s): K21.9 - Gastro-esophageal reflux disease without esophagitis Status: Acute Assessment and Plan: Patient with GERD symptoms. She is tolerating oral intake. Order in place to have HOB elevated. Symptoms better. Continue Protonix and Pepcid. (7) Chronic hy
[2021-05-21 14:38] VITALS: BP 130/88; PULSE 62; RESP 14; TEMP 36.5; O2SAT 100
[2021-05-21] MEDS: FAMOTIDINE 20 MG TABLET PO (20:14)
[2021-05-21] MEDS: MELATONIN 3 MG TABLET PO (20:14)
[2021-05-21] MEDS: PANTOPRAZOLE 40 MG TABLET PO (20:14)
[2021-05-21 20:48] VITALS: BP 119/81; PULSE 72; RESP 18; TEMP 36.3; O2SAT 100
[2021-05-22] MEDS: ONDANSETRON INJ 4 MG/2 ML VIAL IV PUSH ×5 (02:15→23:31)
[2021-05-22] MEDS: HYDROmorphone HCL INJ (*CRX) 1 MG/ML SYR 0.5 MG IV PUSH ×2 (04:50→09:02)
[2021-05-22 04:54] VITALS: BP 142/98; PULSE 67; RESP 18; TEMP 36.1; O2SAT 91
[2021-05-22 05:53] LABS: Hematocrit 28.2 % (37.0-47.0); Mean Corpuscular HGB Conc 31.9 g/dl (32-36); Mean Corpuscular Hemoglobin 31.3 pg (26-34); Mean Corpuscular Volume 97.9 fl (80-100); Mean Platelet Volume 10.3 fl (7.4-10.4); Platelet Count Result 363 k/mm3 (150-375); Red Blood Count 2.88 M/mm3 (4.2-5.4); Red Cell Distribution Width 15.5 % (11.5-14.5); White Blood Count 6.2 K/mm3 (4.5-10.0)
[2021-05-22 06:03] LABS: Anion Gap 2 mmol/L (8-16); Blood Urea Nitrogen 6 mg/dL (7-17); Calcium 8.3 mg/dL (8.4-10.2); Carbon Dioxide 27 mmol/L (22-30); Chloride 105 mmol/L (98-107); Estimated CRCL calculation 49 ml/min; Estimated Glomerular Filt Rate 55; Glucose 110 mg/dL (65-110); Sodium 134 mmol/L (137-145)
--- NOTE | 2021-05-22 07:47 | WPDGIPROGNO ---
Progress Note: A&P Assessment and Plan (1) Pancreatic abscess: Code(s): K85.90 - Acute pancreatitis without necrosis or infection, unspecified Status: Acute Assessment and Plan: is difficult to know how long she has had this abscess. We will try to obtain the results of her most recent CT scan which was done at [facility] in March. Fortunately Radiology was able to place a percutaneous catheter and already overt 200 cc of purulent material has drained. this case was discussed with the hospitalist. She would obviously be best off [facility] but wer are unable to transfer her now. 05/16/21 she seems to be responding well to having had the abscess drained and to antibiotics. Her white blood count is now down to 13,000. 05/22 the drain is ready to come out. I told her that she will follow-up with food and beverage associate [facility], the hospitalist discussed the case with GI at [facility] last week. She had been seen when he was there but he left a few years ago and she has not seen anybody recently (2) Acute on chronic pancreatitis: Code(s): K85.90 - Acute pancreatitis without necrosis or infection, unspecified; K86.1 - Other chronic pancreatitis Status: Acute Assessment and Plan: She has had multiple attacks of pancreatitis. Alcohol was the initial factor and apparently Responsible for the subsequent recurrences. surprising the liver enzymes are normal except for elevated alkaline phosphatase at 189. Lipase is 396. Explain to the patient that this is quite serious. I told her that in some cases pancreatic debridement by a surgeon is necessary. She is quite tender, a little more so since the percutaneous drain was placed. She has had several doses of hydromorphone. 05/16/21 the plan is continue the drain for now and continue antibiotics. I would like for her to follow-up with Dr. Vera as soon as possible after discharge. 05/22 she is concerned that the pain has not subsided. She she was wondering what she could take safely at home. Told her Tylenol would be okay. She is still needing hydromorphone here (3) Acute renal failure: Qualifiers: Acute renal failure type: unspecified Qualified Code(s): N17.9 - Acute kidney failure, unspecified Code(s): N17.9 - Acute kidney failure, unspecified Status: Acute Assessment and Plan: Her creatinine clearance was only 10 on admission. Today creatinine clearance is 15. 05/22 today creatinine clearance is 49 (4) Hypokalemia: Code(s): E87.6 - Hypokalemia Status: Acute Assessment and Plan: this has already been addressed with potassium infusion (5) Sepsis: Qualifiers: Acute renal failure type: unspecified Sepsis acute organ dysfunction status: with acute organ dysfunction Sepsis type: sepsis due to unspecified organism Severe sepsis acute organ dysfunction type: acute renal failure Severe sepsis shock status: without septic shock Qualified Code(s): A41.9 - Sepsis, unspecified organism; R65.20 - Severe sepsis without septic shock; N17.9 - Acute kidney failure, unspecified Code(s): A41.9 - Sepsis, unspecified organism Status: Acute Assessment and Plan: 05/22 she has responded well to Zosyn with normalization of white blood count. (6) Weight loss: Code(s): R63.4 - Abnormal weight loss Status: Acute Assessment and Plan: This is been a gradual process due to her chronic pancreatitis. We will discuss with her the importance of a healthy diet. I offered her advancing the diet but she states she is happy with liquids for now 05/22 Today she wishes to try low-fat diet with close of getting home soon. I have ordered Creon and will order low-fat diet Subjective Date/time seen: 05/22/21 07:47 She states that she tolerated her full liquids last night. She still having abdominal pain but
[2021-05-22] MEDS: ENOXAPARIN 40 MG/0.4 ML SYRINGE SUB-Q (08:53)
[2021-05-22] MEDS: metroNIDAZOLE 250 MG TABLET 500 MG PO ×3 (08:53→20:44)
[2021-05-22] MEDS: MAGNESIUM OXIDE 400 MG TABLET PO (08:53)
[2021-05-22] MEDS: cefTRIAXone 2 GM in SODIUM CHLORIDE 0.9% IV 100 ML 200 ML IVPB (08:53)
[2021-05-22] MEDS: PANTOPRAZOLE 40 MG TABLET PO (08:53)
[2021-05-22] MEDS: LIPASE/AMYLASE/PROTEASE 12,000 UNITS CAP 2 CAP PO ×2 (08:54→11:40)
[2021-05-22] MEDS: BISACODYL 5 MG TABLET EC 10 MG PO (08:54)
[2021-05-22] MEDS: SIMETHICONE 80 MG TAB.CHEW PO ×4 (08:54→20:44)
--- NOTE | 2021-05-22 09:15 | PM.PNGS ---
Progress Note: A&P Assessment and Plan (1) Pancreatic abscess: Code(s): K85.90 - Acute pancreatitis without necrosis or infection, unspecified Status: Acute Assessment and Plan: Repeat CT showed abscess nearly completely resolved. No output from perc drain over past 24 hours. Removed percutaneous drain at bedside today. Continue IV antibiotics. Will switch to oral analgesics. (2) Acute on chronic pancreatitis: Code(s): K85.90 - Acute pancreatitis without necrosis or infection, unspecified; K86.1 - Other chronic pancreatitis Status: Acute Assessment and Plan: Creon added. Advanced to low fat diet. Will plan to follow the patient's IV antibiotics for one week as an outpatient, but recommended that she follow-up with GI at [facility] once discharged. (3) Severe protein-calorie malnutrition: Code(s): E43 - Unspecified severe protein-calorie malnutrition Status: Acute (4) Constipation: Code(s): K59.00 - Constipation, unspecified Status: Acute Assessment and Plan: Improving. Bowels moving. Continue Dulcolax PRN. Additional Plan I have discussed the patient's case and plan of care with Dr. Warner. Subjective Subjective Date/Time Seen: 05/22/21 09:15 Patient reports: no new complaints, feels better, flatus, bowel movement (x3) and afebrile Interval history: Patient seen and examined. She reports still having some right-sided abdominal pain just above the perc drain that is unchanged. She reports it is tolerable. She is willing to try oral analgesics and denies a known allergy to Tylenol. I have asked the nurse to remove this from her allergy list. She reports nausea that has been consistent since being admitted, but no vomiting. She tolerated full liquids yesterday. She also reports having 3 bowel movements after the Dulcolax dose yesterday. No output from the perc drain yesterday or over night worker. Review of Systems Review of Systems: All systems reviewed & are unremarkable except as noted in HPI and below Gastrointestinal: Gastrointestinal: Reports as per HPI and Reports no additional gastrointestinal complaints Exam Const: General: comfortable, no acute distress, alert and awake Nutritional Appearance: thin Orientation/consciousness: patient oriented x3 Cardio: Rhythm: regular rhythm GI: Inspection: non-distended GI Palp: Yes Soft to palpation, Yes Tenderness to palpation present (GI) (RUQ, LUQ, RLQ), No Guarding due to palpation present (GI) and No Rebound tenderness present Auscultation: normal bowel sounds Other: Pigtail drain with scant serous drainage in tubing but no output in drainage bag. Perc drain removed this morning at the bedside, gauze dressing applied. Skin: General skin exam: normal color Neuro: General: moves all extremities and no focal motor deficits Psych: Insight: Good insight present (Psych) Judgement: Good judgement present (Psych) Objective Data Vital Signs Vital Signs: Vital Signs - 24 hr 05/21/21 14:38 05/21/21 20:48 05/22/21 04:54 Temperature 97.7 F 97.4 F L 97 F L Pulse Rate 62 72 67 Respiratory Rate 14 18 18 Blood Pressure 130/88 119/81 142/98 H Pulse Oximetry 100 100 91 Intake/Output Intake/Output: Intake & Output 05/19/21 05/20/21 05/21/21 05/22/21 23:59 23:59 23:59 23:59 Intake Total 965 1000 1780 1520 Output Total 2525 910 1000 1300 Balance -1560 90 780 220 Meds/Results Medications: Active Medications Generic Name Dose Route Start Last Admin Trade Name Freq PRN Reason Stop Dose Admin Albuterol 5 mg 05/16/21 12:08 Albuterol Sulfate Neb 2.5 Mg/0.5 Ml Inh INHALATION Q6HRT PRN Shortness Of Breath Lipase/Protease/Amylase 2 cap 05/22/21 08:00 05/22/21 08:54 Lipase/Amylase/Protease 12,000 Units Cap PO 2 cap TIDWM ELIANE Administration Bisacodyl 10 mg 05/16/21 13:46 05/22/21 08:54 Bisacodyl 5 Mg Tablet Ec PO 10 mg QAM PRN Administration Consti
[2021-05-22] MEDS: oxyCODONE/ACETAMINOPHEN (*CRX) 5-325 MG TABLET 1 TABLET PO ×3 (13:43→19:00)
[2021-05-22] MEDS: LIDOCAINE HCL 1% LOCAL INJ 2 ML AMPUL 5 ML INFILTRATE (13:45)
[2021-05-22 13:55] VITALS: BP 135/92; PULSE 86; RESP 18; TEMP 36.3; O2SAT 100
--- NOTE | 2021-05-22 14:16 | PM.DS ---
DS: Admitting Diagnosis Discharge Date 05/22/21 . Admitting Diagnosis Abdominal pain DS: Discharge Diagnosis Discharge Diagnosis (1) Sepsis: Qualifiers: Acute renal failure type: unspecified Sepsis acute organ dysfunction status: with acute organ dysfunction Sepsis type: sepsis due to unspecified organism Severe sepsis acute organ dysfunction type: acute renal failure Severe sepsis shock status: without septic shock Qualified Code(s): A41.9 - Sepsis, unspecified organism; R65.20 - Severe sepsis without septic shock; N17.9 - Acute kidney failure, unspecified Code(s): A41.9 - Sepsis, unspecified organism Status: Acute Assessment and Plan: Patient has severe sepsis on admission with leukocytosis, tachycardia, and AGNELI due to acute on chronic pancreatitis with pancreatic/hepatic abscess. The BP was low by EMS at 68/42 but better with fluids. BP stable and even elevated at times. The patient was started on empiric antibiotic therapy with Zosyn in the ER. IR was consulted with drain placed in the hepatic abscess on 05/15/21. WBC normal now and no fevers. Sepsis resolved. (2) Abscess, hepatic: Code(s): K75.0 - Abscess of liver Status: Deleted Assessment and Plan: CT scan showing acute on chronic pancreatitis with associated inflammation of the distal stomach and abscess tracking from the body of the pancreas to the liver margin. The abscess measures 1.1 x 3.3 x 2.0 cm adjacent to the pancreas and 9.7 x 6.2 x 7.2 cm at the right lateral inferior margin of the liver. Drain placed 05/15. GI consulted and agreed with decision to transfer patient but given the current bed situation with the COVID pandemic, transferring patients has been difficult. Hospitalist spoke with testing director at [facility] 05/16/[facility]. Findings discussed. No evidence of acute gastric outlet obstruction. He did recommend patient following up in the clinic once she is well enough for discharge. Abscess culture growing E. coli resistant to fluoroquinolones and ampicillin and Strept constellatus. Repeat CT Abd now showing near complete resolution of perihepatic abscess. Drain output minimal now so drain removed 05/22/21. Started on Pip/Sebastian on 2/1 AM and completed 7 days. Plan to change to Rocephin 2gm IV daily and add po Flagyl for another 7 days (2 weeks of parenteral abx) then change to Augmentin on 05/29 for 2 additional weeks. Patient needs to follow up with General Surgery and GI clinic at [facility]. (3) Pancreatic abscess: Code(s): K85.90 - Acute pancreatitis without necrosis or infection, unspecified Status: Acute Assessment and Plan: As above. This is probably confluent with the hepatic abscess and lanie with the current drain. (4) Acute on chronic pancreatitis: Code(s): K85.90 - Acute pancreatitis without necrosis or infection, unspecified; K86.1 - Other chronic pancreatitis Status: Acute Assessment and Plan: [place] patient with acute on chronic pancreatitis. CT scan showing ac/ch pancreatitis but lipase was 396. Pancreas may not be able to mount higher levels. Repeat lipase was normal. Repeat CT Abd 05/20/21 showing almost complete resolution of the abscess and again acute/chronic pancreatitis. Made NPO because she was not tolerating diet. Lipase repeated and remained normal. Improved so diet advanced and Creon added. (5) Acute renal failure: Qualifiers: Acute renal failure type: unspecified Qualified Code(s): N17.9 - Acute kidney failure, unspecified Code(s): N17.9 - Acute kidney failure, unspecified Status: Acute Assessment and Plan: Patient has ANGELI most likely due to dehydration complicated by severe sepsis with possible ATN from [facility]. Patient received 3 L of normal saline in the ER and continuous IV fluid hydration. Renal US was unremarkable. Cr improved so IV fluids stopped. Cr down to 1.1 but stable. (6) GERD (gastroesophageal reflux disease): Cod
--- NOTE | 2021-05-22 14:38 | PM.IMPN ---
Progress Note: A&P Assessment and Plan (1) Sepsis: Qualifiers: Acute renal failure type: unspecified Sepsis acute organ dysfunction status: with acute organ dysfunction Sepsis type: sepsis due to unspecified organism Severe sepsis acute organ dysfunction type: acute renal failure Severe sepsis shock status: without septic shock Qualified Code(s): A41.9 - Sepsis, unspecified organism; R65.20 - Severe sepsis without septic shock; N17.9 - Acute kidney failure, unspecified Code(s): A41.9 - Sepsis, unspecified organism Status: Acute Assessment and Plan: Patient has severe sepsis on admission with leukocytosis, tachycardia, and ANGELI due to acute on chronic pancreatitis with pancreatic/hepatic abscess. The BP was low by EMS at 68/42 but better with fluids. BP stable and even elevated at times. The patient was started on empiric antibiotic therapy with Zosyn in the ER. IR was consulted with drain placed in the hepatic abscess on 05/15/21. WBC normal now and no fevers. Sepsis resolved. (2) Abscess, hepatic: Code(s): K75.0 - Abscess of liver Status: Deleted Assessment and Plan: CT scan showing acute on chronic pancreatitis with associated inflammation of the distal stomach and abscess tracking from the body of the pancreas to the liver margin. The abscess measures 1.1 x 3.3 x 2.0 cm adjacent to the pancreas and 9.7 x 6.2 x 7.2 cm at the right lateral inferior margin of the liver. Drain placed 05/15. GI consulted and agreed with decision to transfer patient but given the current bed situation with the COVID pandemic, transferring patients has been difficult. Hospitalist spoke with strip roller at [facility] 05/16/21. Findings discussed. No evidence of acute gastric outlet obstruction. He did recommend patient following up in the clinic once she is well enough for discharge. Abscess culture growing E. coli resistant to fluoroquinolones and ampicillin and Strept constellatus. Repeat CT Abd now showing near complete resolution of perihepatic abscess. Drain output minimal now so drain removed 05/22/21. Started on Pip/Sebastian on 2/1 AM and completed 7 days. Plan to change to Rocephin 2gm IV daily and add po Flagyl for another 7 days (2 weeks of parenteral abx) then change to Augmentin only on 05/29 for 2 additional weeks. Patient needs to follow up with General Surgery and GI clinic at [facility]. (3) Pancreatic abscess: Code(s): K85.90 - Acute pancreatitis without necrosis or infection, unspecified Status: Acute Assessment and Plan: As above. This is probably confluent with the hepatic abscess and lanie with the current drain. (4) Acute on chronic pancreatitis: Code(s): K85.90 - Acute pancreatitis without necrosis or infection, unspecified; K86.1 - Other chronic pancreatitis Status: Acute Assessment and Plan: [place] patient with acute on chronic pancreatitis. CT scan showing ac/ch pancreatitis but lipase was 396. Pancreas may not be able to mount higher levels. Repeat lipase was normal. Repeat CT Abd 05/20/21 showing almost complete resolution of the abscess and again acute/chronic pancreatitis. Made NPO because she was not tolerating diet. Lipase repeated and remained normal. Improved so diet advanced and Creon added. Repeat lipase now with increasing abd pain. (5) Acute renal failure: Qualifiers: Acute renal failure type: unspecified Qualified Code(s): N17.9 - Acute kidney failure, unspecified Code(s): N17.9 - Acute kidney failure, unspecified Status: Acute Assessment and Plan: Patient has ANGELI most likely due to dehydration complicated by severe sepsis with possible ATN from [facility]. Patient received 3 L of normal saline in the ER and continuous IV fluid hydration. Renal US was unremarkable. Cr improved so IV fluids stopped. Cr down to 1.1 but stable. (6) GERD (gastroesophageal reflux disease): Code(s): K21.9 - Gastro-esophageal reflux disease withou
[2021-05-22 15:23] LABS: Lipase 297 U/L (23-300)
[2021-05-22] MEDS: LACTATED RINGERS 1,000 ML 75 ML IV CONT (19:01)
[2021-05-22 20:28] VITALS: BP 126/87; PULSE 73; RESP 16; TEMP 36.3; O2SAT 99
[2021-05-22] MEDS: FAMOTIDINE 20 MG TABLET PO (20:44)
[2021-05-22] MEDS: MELATONIN 3 MG TABLET PO (20:44)
[2021-05-22] MEDS: SALINE LOCK FLUSH 10 ML IV PUSH (20:46)
[2021-05-23] MEDS: oxyCODONE HCL (*CRX) 5 MG TAB IR PO ×4 (01:57→21:07)
[2021-05-23] MEDS: oxyCODONE/ACETAMINOPHEN (*CRX) 5-325 MG TABLET 1 TABLET PO ×4 (01:57→21:07)
[2021-05-23 03:48] VITALS: BP 129/84; PULSE 82; RESP 18; TEMP 36.1; O2SAT 98
[2021-05-23] MEDS: metroNIDAZOLE 250 MG TABLET 500 MG PO (06:04)
[2021-05-23] MEDS: SALINE LOCK FLUSH 10 ML IV PUSH ×3 (06:04→21:08)
[2021-05-23 06:20] LABS: Hematocrit 28.1 % (37.0-47.0); Hemoglobin 9.3 g/dL (12.0-15.0); Mean Corpuscular HGB Conc 33.1 g/dl (32-36); Mean Corpuscular Hemoglobin 32.1 pg (26-34); Mean Corpuscular Volume 96.9 fl (80-100); Mean Platelet Volume 10.1 fl (7.4-10.4); Platelet Count Result 377 k/mm3 (150-375); Red Cell Distribution Width 15.7 % (11.5-14.5)
[2021-05-23 06:32] LABS: Alanine Aminotransferase 9 U/L (4-35); Albumin Level 2.2 g/dL (3.5-5.1); Alkaline Phosphatase 78 U/L (38-126); Amylase 70 U/L (30-110); Anion Gap 3 mmol/L (8-16); Aspartate Amino Transferase 16 U/L (14-36); Bilirubin,Total 0.3 mg/dL (0.2-1.3); Blood Urea Nitrogen 4 mg/dL (7-17); Calcium 7.9 mg/dL (8.4-10.2); Carbon Dioxide 26 mmol/L (22-30); Chloride 105 mmol/L (98-107); Estimated CRCL calculation 45 ml/min; Estimated Glomerular Filt Rate 50; Glucose 102 mg/dL (65-110); Lipase 380 U/L (23-300); Potassium 4.9 mmol/L (3.4-5.0); Sodium 134 mmol/L (137-145)
[2021-05-23] MEDS: LIPASE/AMYLASE/PROTEASE 12,000 UNITS CAP 2 CAP PO ×3 (08:46→16:27)
[2021-05-23] MEDS: SIMETHICONE 80 MG TAB.CHEW PO ×4 (08:46→21:05)
[2021-05-23] MEDS: PANTOPRAZOLE 40 MG TABLET PO (08:46)
[2021-05-23] MEDS: MAGNESIUM OXIDE 400 MG TABLET PO (08:46)
[2021-05-23] MEDS: cefTRIAXone 2 GM in SODIUM CHLORIDE 0.9% IV 100 ML 200 ML IVPB (08:47)
[2021-05-23] MEDS: ONDANSETRON INJ 4 MG/2 ML VIAL IV PUSH ×3 (08:47→17:31)
[2021-05-23] MEDS: ENOXAPARIN 40 MG/0.4 ML SYRINGE SUB-Q (08:47)
[2021-05-23] MEDS: LACTATED RINGERS 1,000 ML 75 ML IV CONT ×2 (09:03→22:31)
--- NOTE | 2021-05-23 09:27 | PM.PNGS ---
Progress Note: A&P Assessment and Plan (1) Pancreatic abscess: Code(s): K85.90 - Acute pancreatitis without necrosis or infection, unspecified Status: Acute Assessment and Plan: Percutaneous drain removed yesterday. Continue IV antibiotics. (2) Acute on chronic pancreatitis: Code(s): K85.90 - Acute pancreatitis without necrosis or infection, unspecified; K86.1 - Other chronic pancreatitis Status: Acute Assessment and Plan: Having more abdominal pain overnight and this morning, lipase being repeated. Advanced back to a low-fat diet this morning. Will plan to follow the patient's IV antibiotics for one week as an outpatient, but recommended that she follow-up with GI at [facility] after discharge. (3) Severe protein-calorie malnutrition: Code(s): E43 - Unspecified severe protein-calorie malnutrition Status: Acute (4) Constipation: Code(s): K59.00 - Constipation, unspecified Status: Acute Assessment and Plan: Resolved. Continue Dulcolax PRN. Additional Plan I have discussed the patient's case and plan of care with Dr. Warner. Subjective Subjective Date/Time Seen: 05/23/21 08:27 Patient reports: still having pain, nausea and afebrile Interval history: Patient seen and examined. She reports having more abdominal pain today. She feels like her abdominal pain is ?all over. ? She continues to have the nausea she has experienced since her hospitalization that is typical for her baseline at home. She denies any vomiting last night or this morning. The patient is frustrated and feels her pain was exacerbated by eating the low-fat diet last night. No other complaints at this time. Review of Systems Review of Systems: All systems reviewed & are unremarkable except as noted in HPI and below Gastrointestinal: Gastrointestinal: Reports as per HPI and Reports no additional gastrointestinal complaints Exam Const: General: awake and uncomfortable Nutritional Appearance: thin Orientation/consciousness: patient oriented x3 GI: Inspection: normal to inspection, non-distended and other (Right-sided gauze dressing dry and intact from previous perc drain) GI Palp: Yes Soft to palpation, Yes Tenderness to palpation present (GI) (Throughout), Yes Guarding due to palpation present (GI) (Voluntary guarding in the upper abdomen) and No Rebound tenderness present Auscultation: normal bowel sounds Neuro: General: moves all extremities and no focal motor deficits Extrem: General: no clubbing, cyanosis or edema Psych: Affect: Anxious affect present Insight: Fair insight present (Psych) Judgement: Fair judgement present (Psych) Objective Data Vital Signs Vital Signs: Vital Signs - 24 hr 05/22/21 13:55 05/22/21 20:28 05/23/21 03:48 Temperature 97.4 F L 97.3 F L 96.9 F L Pulse Rate 86 73 82 Respiratory Rate 18 16 18 Blood Pressure 135/92 H 126/87 129/84 Pulse Oximetry 100 99 98 Intake/Output Intake/Output: Intake & Output 05/20/21 05/21/21 05/22/21 05/23/21 23:59 23:59 23:59 23:59 Intake Total 1000 1780 2890 1390 Output Total 910 1000 2950 900 Balance 90 780 -60 490 Meds/Results Medications: Active Medications Generic Name Dose Route Start Last Admin Trade Name Freq PRN Reason Stop Dose Admin Acetaminophen 650 mg 05/22/21 09:30 Acetaminophen 325 Mg Tablet PO Q6H PRN Mild Pain (1-3) or Fever Albuterol 5 mg 05/16/21 12:08 Albuterol Sulfate Neb 2.5 Mg/0.5 Ml Inh INHALATION Q6HRT PRN Shortness Of Breath Lipase/Protease/Amylase 2 cap 05/22/21 08:00 05/23/21 08:46 Lipase/Amylase/Protease 12,000 Units Cap PO 2 cap TIDWM ELIANE Administration Bisacodyl 10 mg 05/16/21 13:46 05/22/21 08:54 Bisacodyl 5 Mg Tablet Ec PO 10 mg QAM PRN Administration Constipation/Bloating Enoxaparin Sodium 40 mg 05/18/21 09:00 05/23/21 08:47 Enoxaparin 40 Mg/0.4 Ml Syringe SUB-Q 40 mg DAILY ELIANE Administrat
--- NOTE | 2021-05-23 10:29 | PM.IMPN ---
Progress Note: A&P Assessment and Plan (1) Acute on chronic pancreatitis: Code(s): K85.90 - Acute pancreatitis without necrosis or infection, unspecified; K86.1 - Other chronic pancreatitis Status: Acute Assessment and Plan: [place] patient with acute on chronic pancreatitis. CT scan showing ac/ch pancreatitis but lipase was 396. Pancreas may not be able to mount higher levels. Repeat lipase was normal. Repeat CT Abd 05/20/21 showing almost complete resolution of the abscess and again acute/chronic pancreatitis. Made NPO because she was not tolerating diet but improved. Lipase repeated and remained normal. Improved so diet advanced and Creon added. Patient with increasing abdominal pain yesterday (05/22) so discharge was held. She is having BMs. She is nauseaous but no vomiting. She was made NPO yesterday but will advance diet and patient instructed to choose foods she thinks she can tolerate. Continue LR. Continue Creon. Flagyl can cause GI symptoms (n/v, abd pain, diarrhea) and pancreatitis. Will change to Augmentin. (2) Sepsis: Qualifiers: Acute renal failure type: unspecified Sepsis acute organ dysfunction status: with acute organ dysfunction Sepsis type: sepsis due to unspecified organism Severe sepsis acute organ dysfunction type: acute renal failure Severe sepsis shock status: without septic shock Qualified Code(s): A41.9 - Sepsis, unspecified organism; R65.20 - Severe sepsis without septic shock; N17.9 - Acute kidney failure, unspecified Code(s): A41.9 - Sepsis, unspecified organism Status: Acute Assessment and Plan: Patient has severe sepsis on admission with leukocytosis, tachycardia, and ANGELI due to acute on chronic pancreatitis with pancreatic/hepatic abscess. The BP was low by EMS at 68/42 but better with fluids. BP stable and even elevated at times. The patient was started on empiric antibiotic therapy with Zosyn in the ER. IR was consulted with drain placed in the hepatic abscess on 05/15/21. Abscess resolved and drain removed. WBC normal now and no fevers. Sepsis resolved. (3) Abscess, hepatic: Code(s): K75.0 - Abscess of liver Status: Deleted Assessment and Plan: CT scan showing acute on chronic pancreatitis with associated inflammation of the distal stomach and abscess tracking from the body of the pancreas to the liver margin. The abscess measures 1.1 x 3.3 x 2.0 cm adjacent to the pancreas and 9.7 x 6.2 x 7.2 cm at the right lateral inferior margin of the liver. Drain placed 05/15. GI consulted and agreed with decision to transfer patient but given the current bed situation with the COVID pandemic, transferring patients has been difficult. Hospitalist spoke with truck loader overhead crane at [facility] 05/16/21. Findings discussed. No evidence of acute gastric outlet obstruction. He did recommend patient following up in the clinic once she is well enough for discharge. Abscess culture grew E. coli resistant to fluoroquinolones and ampicillin and Strept constellatus. Repeat CT Abd 05/20 showing near complete resolution of perihepatic abscess. Drain output minimal now so drain removed 05/22/21. Started on Pip/Sebastian on 05/15 AM and completed 7 days. Changed to Rocephin 2gm IV daily and add po Flagyl for another 7 days (2 weeks of parenteral abx) then change to Augmentin monotherapy on 05/29 for 2 additional weeks. May need to adjust abx as above. Patient needs to follow up with General Surgery and GI clinic at [facility]. (4) Pancreatic abscess: Code(s): K85.90 - Acute pancreatitis without necrosis or infection, unspecified Status: Acute Assessment and Plan: As above. This is probably confluent with the hepatic abscess and lanie with the current drain. (5) Acute renal failure: Qualifiers: Acute renal failure type: unspecified Qualified Code(s): N17.9 - Acute kidney failure, unspecified Code(s): N17.9 - Acute kidney failure, unspecified Status: Acute [place]
[2021-05-23] MEDS: AMOXICILLIN/CLAVULANATE K 500-125 MG TAB 1 TABLET PO ×2 (13:00→21:04)
[2021-05-23 14:21] VITALS: BP 118/81; PULSE 89; RESP 14; TEMP 36.5; O2SAT 100
[2021-05-23 21:03] VITALS: BP 112/78; PULSE 93; RESP 14; TEMP 36.7; O2SAT 100
[2021-05-23] MEDS: FAMOTIDINE 20 MG TABLET PO (21:05)
[2021-05-23] MEDS: MELATONIN 3 MG TABLET PO (21:05)
[2021-05-23 21:42] VITALS: O2SAT 100
[2021-05-24] MEDS: oxyCODONE/ACETAMINOPHEN (*CRX) 5-325 MG TABLET 1 TABLET PO ×3 (05:15→17:53)
[2021-05-24] MEDS: AMOXICILLIN/CLAVULANATE K 500-125 MG TAB 1 TABLET PO ×3 (05:15→21:18)
[2021-05-24] MEDS: SALINE LOCK FLUSH 10 ML IV PUSH ×3 (05:15→21:18)
[2021-05-24] MEDS: oxyCODONE HCL (*CRX) 5 MG TAB IR PO ×3 (05:16→17:53)
[2021-05-24 06:00] VITALS: BP 111/72; PULSE 83; RESP 14; TEMP 36.7; O2SAT 100
[2021-05-24 06:07] LABS: Basophils Percent Auto 0.3 % (0.2-1.2); Eosinophils Absolute Auto 0.1 K/mm3 (0-0.3); Eosinophils Percent Auto 1.5 % (0-4.4); Hematocrit 26.2 % (37.0-47.0); Hemoglobin 8.6 g/dL (12.0-15.0); Immature Granulocyte Absolute 0.06 K/mm3 (0.00-0.031); Immature Granulocyte Percent A 0.6 % (0-0.5); Mean Corpuscular HGB Conc 32.8 g/dl (32-36); Mean Corpuscular Hemoglobin 31.3 pg (26-34); Mean Corpuscular Volume 95.3 fl (80-100); Mean Platelet Volume 10.6 fl (7.4-10.4); Monocytes Absolute Auto 1.2 K/mm3 (0.1-0.6); Monocytes Percent Auto 12.2 % (2.6-8.5); Neutrophils Absolute Auto 6.3 K/mm3 (1.3-6.7); Neutrophils Percent Auto 66.4 % (45.5-73.1); Platelet Count Result 377 k/mm3 (150-375); Red Blood Count 2.75 M/mm3 (4.2-5.4); Red Cell Distribution Width 15.9 % (11.5-14.5); White Blood Count 9.5 K/mm3 (4.5-10.0)
[2021-05-24 06:37] LABS: Alanine Aminotransferase 8 U/L (4-35); Albumin Level 2.1 g/dL (3.5-5.1); Alkaline Phosphatase 71 U/L (38-126); Anion Gap 2 mmol/L (8-16); Aspartate Amino Transferase 12 U/L (14-36); Bilirubin,Total 0.5 mg/dL (0.2-1.3); Blood Urea Nitrogen 4 mg/dL (7-17); Carbon Dioxide 25 mmol/L (22-30); Chloride 105 mmol/L (98-107); Estimated CRCL calculation 53 ml/min; Estimated Glomerular Filt Rate > 60; Glucose 91 mg/dL (65-110); Lipase 251 U/L (23-300); Magnesium 1.2 mg/dL (1.6-2.3); Phosphorus 2.9 mg/dL (2.5-4.5); Potassium 4.7 mmol/L (3.4-5.0); Sodium 132 mmol/L (137-145)
[2021-05-24 07:59] VITALS: BP 119/85; PULSE 100; RESP 18; TEMP 36.4; O2SAT 100
[2021-05-24] MEDS: ONDANSETRON INJ 4 MG/2 ML VIAL IV PUSH ×3 (08:02→20:13)
[2021-05-24] MEDS: LIPASE/AMYLASE/PROTEASE 12,000 UNITS CAP 2 CAP PO ×3 (08:09→16:33)
[2021-05-24] MEDS: MAGNESIUM OXIDE 400 MG TABLET PO (08:09)
[2021-05-24] MEDS: PANTOPRAZOLE 40 MG TABLET PO (08:10)
[2021-05-24] MEDS: ENOXAPARIN 40 MG/0.4 ML SYRINGE SUB-Q (08:10)
[2021-05-24] MEDS: SIMETHICONE 80 MG TAB.CHEW PO ×4 (08:10→20:13)
[2021-05-24] MEDS: BISACODYL 5 MG TABLET EC 10 MG PO (08:10)
[2021-05-24] MEDS: MAGNESIUM SULF 2 GM/WATER 50ML 2 GM/50 ML BAG IVPB (08:11)
[2021-05-24] MEDS: cefTRIAXone 2 GM in SODIUM CHLORIDE 0.9% IV 100 ML 200 ML IVPB (10:32)
--- NOTE | 2021-05-24 10:45 | PM.IMPN ---
Progress Note: A&P Assessment and Plan (1) Acute on chronic pancreatitis: Code(s): K85.90 - Acute pancreatitis without necrosis or infection, unspecified; K86.1 - Other chronic pancreatitis Status: Acute Assessment and Plan: [place] patient with acute on chronic pancreatitis. CT scan showing ac/ch pancreatitis but lipase was 396. Pancreas may not be able to mount higher levels. Repeat lipase was normal. Repeat CT Abd 05/20/21 showing almost complete resolution of the abscess and again acute/chronic pancreatitis. Made NPO because she was not tolerating diet but improved. Lipase repeated and remained normal. Improved so diet advanced and Creon added. Patient with increasing abdominal pain 05/22 so discharge was held. She is having BMs. She was nauseous but no vomiting. She was made NPO. Concern this might be related more to the Flagyl so this was stopped. Diet was advanced to low-fat diet and patient instructed to choose foods she thinks she can tolerate. Symptoms better today but requiring the Percocet 10mg dose regularly. Continue Creon. Stop IV fluids. Follow for now. If remains stable, plan discharge tomorrow. (2) Sepsis: Qualifiers: Acute renal failure type: unspecified Sepsis acute organ dysfunction status: with acute organ dysfunction Sepsis type: sepsis due to unspecified organism Severe sepsis acute organ dysfunction type: acute renal failure Severe sepsis shock status: without septic shock Qualified Code(s): A41.9 - Sepsis, unspecified organism; R65.20 - Severe sepsis without septic shock; N17.9 - Acute kidney failure, unspecified Code(s): A41.9 - Sepsis, unspecified organism Status: Acute Assessment and Plan: Patient has severe sepsis on admission with leukocytosis, tachycardia, and ANGELI due to acute on chronic pancreatitis with pancreatic/hepatic abscess. The BP was low by EMS at 68/42 but better with fluids. BP stable and even elevated at times. The patient was started on empiric antibiotic therapy with Zosyn in the ER. IR was consulted with drain placed in the hepatic abscess on 05/15/21. Abscess resolved and drain removed. WBC normal now and no fevers. Sepsis resolved. (3) Abscess, hepatic: Code(s): K75.0 - Abscess of liver Status: Deleted Assessment and Plan: CT scan showing acute on chronic pancreatitis with associated inflammation of the distal stomach and abscess tracking from the body of the pancreas to the liver margin. The abscess measures 1.1 x 3.3 x 2.0 cm adjacent to the pancreas and 9.7 x 6.2 x 7.2 cm at the right lateral inferior margin of the liver. Drain placed 05/15. GI consulted and agreed with decision to transfer patient but given the current bed situation with the COVID pandemic, transferring patients has been difficult. Hospitalist spoke with meatcutter at [facility] 05/16/[facility]. Findings discussed. No evidence of acute gastric outlet obstruction. He did recommend patient following up in the clinic once she is well enough for discharge. Abscess culture grew E. coli resistant to fluoroquinolones and ampicillin and Strept constellatus. Repeat CT Abd 05/20 showing near complete resolution of perihepatic abscess. Drain output minimal so drain removed 05/22/21. Started on Pip/Sebastian on 2 AM and completed 7 days. Changed to Rocephin 2gm IV daily and add po Flagyl for another 7 days (2 weeks of parenteral abx planned) then change to Augmentin monotherapy on 05/29 for 2 additional weeks. However, she started to have worsening abd pain possibly related to the Flagyl so this was changed to Augmentin. Plan to continue Rocephin through 05/28 then Augmentin monotherapy. Patient needs to follow up with General Surgery and GI clinic at [facility]. (4) Pancreatic abscess: Code(s): K85.90 - Acute pancreatitis without necrosis or infection, unspecified Status: Acute Assessment and Plan: This is probably confluent with the hepatic abscess and abated with drainage. As above. (5) Ac
--- NOTE | 2021-05-24 11:13 | PM.PNGS ---
Progress Note: A&P Assessment and Plan (1) Pancreatic abscess: Code(s): K85.90 - Acute pancreatitis without necrosis or infection, unspecified Status: Acute Assessment and Plan: Percutaneous drain removed. WBC remains normal. Continue IV antibiotics. No indication for any further surgical intervention at this time. Will follow peripherally. Please let us know if there are any changes that need to be addressed surgically. (2) Acute on chronic pancreatitis: Code(s): K85.90 - Acute pancreatitis without necrosis or infection, unspecified; K86.1 - Other chronic pancreatitis Status: Acute Assessment and Plan: Abdominal pain improving. Lipase normal today. Management per primary service. Will plan to follow the patient's IV antibiotics as an outpatient if discharged, but recommended that she follow-up with GI at [facility] after discharge. (3) Severe protein-calorie malnutrition: Code(s): E43 - Unspecified severe protein-calorie malnutrition Status: Acute (4) Constipation: Code(s): K59.00 - Constipation, unspecified Status: Acute Assessment and Plan: Continue Dulcolax PRN. Additional Plan I have discussed the patient's case and plan of care with Dr. Warner. Subjective Subjective Date/Time Seen: 05/24/21 09:13 Patient reports: feels better, pain is less, tolerating liquids well, flatus and afebrile Interval history: Patient seen and examined this morning. She appears much more comfortable today and is feeling much better. She states her upper abdominal pain is tolerable and being controlled with the oral analgesics currently. She has primarily stuck to a full liquid diet over the past 24 hours and is tolerating this well. She reports flatus and has not had a BM today, but requested her Dulcolax this morning. No other complaints at this time. Exam Const: General: comfortable and awake Nutritional Appearance: thin Orientation/consciousness: patient oriented x3 GI: Inspection: non-distended and other (Right-sided gauze dressing dry and intact from previous perc drain) GI Palp: Yes Soft to palpation, Yes Tenderness to palpation present (GI) (RUQ, LUQ), Yes Guarding due to palpation present (GI) (voluntary guarding with palpation in LUQ) and No Rebound tenderness present Auscultation: normal bowel sounds Neuro: General: moves all extremities and no focal motor deficits Extrem: General: normal to inspection Psych: Insight: Good insight present (Psych) Judgement: Good judgement present (Psych) Objective Data Vital Signs Vital Signs: Vital Signs - 24 hr 05/23/21 14:21 05/23/21 21:03 05/23/21 21:42 Temperature 97.7 F 98.0 F Pulse Rate 89 93 Respiratory Rate 14 14 Blood Pressure 118/81 112/78 Pulse Oximetry 100 100 100 05/24/21 06:00 05/24/21 07:59 Temperature 98.1 F 97.5 F L Pulse Rate 83 100 Respiratory Rate 14 18 Blood Pressure 111/72 119/85 Pulse Oximetry 100 100 Intake/Output Intake/Output: Intake & Output 05/21/21 05/22/21 05/23/21 05/24/21 23:59 23:59 23:59 23:59 Intake Total 1780 2890 2970 788 Output Total 1000 2950 1850 1400 Balance 780 -60 1120 -612 Meds/Results Medications: Active Medications Generic Name Dose Route Start Last Admin Trade Name Wilianq PRN Reason Stop Dose Admin Acetaminophen 650 mg 05/22/21 09:30 Acetaminophen 325 Mg Tablet PO Q6H PRN Mild Pain (1-3) or Fever Albuterol 5 mg 05/16/21 12:08 Albuterol Sulfate Neb 2.5 Mg/0.5 Ml Inh INHALATION Q6HRT PRN Shortness Of Breath Amoxicillin/Clavulanate Potassium 1 tablet 05/23/21 14:00 05/24/21 05:15 Amoxicillin/Clavulanate K 500-125 Mg Tab PO 1 tablet Q8HR ELIANE Administration Lipase/Protease/Amylase 2 cap 05/22/21 08:00 05/24/21 08:09 Lipase/Amylase/Protease 12,000 Units Cap PO 2 cap TIDWM ELIANE Administration Bisacodyl 10 mg 05/16/21 13:46 05/24/21 08:10 Bisacodyl 5 Mg Tablet Ec PO 10 mg QAM PRN
[2021-05-24 14:08] VITALS: BP 110/76; PULSE 101; RESP 22; TEMP 36.8; O2SAT 100
--- NOTE | 2021-05-24 15:01 | PC.NURSE ---
On 05/24/21, the student, [Mauri Sotomayor], provided care and completed [facility] documentation on this patient. I have reviewed the student's documentation and agree with the findings.
[2021-05-24 19:42] VITALS: BP 96/68; PULSE 75; RESP 16; TEMP 36.4; O2SAT 99
[2021-05-24] MEDS: MELATONIN 3 MG TABLET PO (20:13)
[2021-05-24] MEDS: FAMOTIDINE 20 MG TABLET PO (20:13)
[2021-05-24 20:19] VITALS: O2SAT 99
[2021-05-24 22:19] VITALS: BP 106/74
[2021-05-25] MEDS: oxyCODONE/ACETAMINOPHEN (*CRX) 5-325 MG TABLET 1 TABLET PO ×2 (02:10→09:10)
[2021-05-25] MEDS: oxyCODONE HCL (*CRX) 5 MG TAB IR PO ×2 (02:11→09:10)
[2021-05-25 03:37] VITALS: BP 107/72; PULSE 78; RESP 18; TEMP 37.1; O2SAT 99
[2021-05-25] MEDS: AMOXICILLIN/CLAVULANATE K 500-125 MG TAB 1 TABLET PO (05:52)
[2021-05-25] MEDS: SALINE LOCK FLUSH 10 ML IV PUSH (05:52)
[2021-05-25 06:13] LABS: Hematocrit 26.3 % (37.0-47.0); Hemoglobin 8.7 g/dL (12.0-15.0); Mean Corpuscular HGB Conc 33.1 g/dl (32-36); Mean Corpuscular Hemoglobin 31.2 pg (26-34); Mean Corpuscular Volume 94.3 fl (80-100); Mean Platelet Volume 10.6 fl (7.4-10.4); Platelet Count Result 389 k/mm3 (150-375); Red Blood Count 2.79 M/mm3 (4.2-5.4); Red Cell Distribution Width 15.9 % (11.5-14.5); White Blood Count 9.9 K/mm3 (4.5-10.0)
[2021-05-25 06:28] LABS: Albumin Level 2.5 g/dL (3.5-5.1); Anion Gap 1 mmol/L (8-16); Blood Urea Nitrogen 4 mg/dL (7-17); Calcium 8.2 mg/dL (8.4-10.2); Carbon Dioxide 26 mmol/L (22-30); Chloride 103 mmol/L (98-107); Estimated CRCL calculation 51 ml/min; Estimated Glomerular Filt Rate > 60; Glucose 114 mg/dL (65-110); Magnesium 1.7 mg/dL (1.6-2.3); Phosphorus 2.8 mg/dL (2.5-4.5); Potassium 4.6 mmol/L (3.4-5.0); Sodium 130 mmol/L (137-145)
[2021-05-25] MEDS: cefTRIAXone 2 GM in SODIUM CHLORIDE 0.9% IV 100 ML 200 ML IVPB (08:54)
[2021-05-25] MEDS: LIPASE/AMYLASE/PROTEASE 12,000 UNITS CAP 2 CAP PO ×2 (08:54→11:55)
[2021-05-25] MEDS: SIMETHICONE 80 MG TAB.CHEW PO ×2 (08:55→11:55)
[2021-05-25] MEDS: PANTOPRAZOLE 40 MG TABLET PO (08:55)
[2021-05-25] MEDS: ENOXAPARIN 40 MG/0.4 ML SYRINGE SUB-Q (08:55)
[2021-05-25] MEDS: MAGNESIUM OXIDE 400 MG TABLET PO (08:55)
--- NOTE | 2021-05-25 10:27 | PM.DS ---
DS: Admitting Diagnosis Discharge Date 05/25/21 Admitting Diagnosis Abdominal pain DS: Discharge Diagnosis Discharge Diagnosis (1) Acute on chronic pancreatitis: Code(s): K85.90 - Acute pancreatitis without necrosis or infection, unspecified; K86.1 - Other chronic pancreatitis Status: Acute Assessment and Plan: Patient presents with abdominal pain. CT scan showing ac/ch pancreatitis but lipase was 396. Pancreas may not be able to mount higher levels. Repeat lipase was normal. Repeat CT Abd 05/20/21 showing almost complete resolution of the abscess and again acute/chronic pancreatitis. Made NPO because she was not tolerating diet but improved. Lipase repeated and remained normal. Improved so diet advanced and Creon added. Again, patient with increasing abdominal pain 05/22 so discharge was held. She was having BMs. She was nauseous but no vomiting. She was made NPO. Concern this might be related more to the Flagyl so this was stopped. Diet was advanced to low-fat diet as she toelrated and patient instructed to choose foods she thinks she can tolerate. Symptoms better today. Plan discharge today. (2) Sepsis: Qualifiers: Acute renal failure type: unspecified Sepsis acute organ dysfunction status: with acute organ dysfunction Sepsis type: sepsis due to unspecified organism Severe sepsis acute organ dysfunction type: acute renal failure Severe sepsis shock status: without septic shock Qualified Code(s): A41.9 - Sepsis, unspecified organism; R65.20 - Severe sepsis without septic shock; N17.9 - Acute kidney failure, unspecified Code(s): A41.9 - Sepsis, unspecified organism Status: Acute Assessment and Plan: Patient has severe sepsis on admission with leukocytosis, tachycardia, and ANGELI due to acute on chronic pancreatitis with pancreatic/hepatic abscess. The BP was low by EMS at 68/42 but better with fluids. BP stable and even elevated at times. The patient was started on empiric antibiotic therapy with Zosyn in the ER. IR was consulted with drain placed in the hepatic abscess on 05/15/21. Abscess resolved and drain removed. WBC normal now and no fevers. Sepsis resolved. (3) Abscess, hepatic: Code(s): K75.0 - Abscess of liver Status: Deleted Assessment and Plan: CT scan showing abscess tracking from the body of the pancreas to the liver margin. The abscess measures 1.1 x 3.3 x 2.0 cm adjacent to the pancreas and 9.7 x 6.2 x 7.2 cm at the right lateral inferior margin of the liver. Drain placed 05/15. GI consulted and agreed with decision to transfer patient but given the current bed situation with the COVID pandemic, transferring patients has been difficult. Hospitalist spoke with feller seam operator at [facility] 05/16/21. Findings discussed. No evidence of acute gastric outlet obstruction. He did recommend patient following up in the [facility] Hepatology clinic once she is well enough for discharge. Abscess culture grew E. coli resistant to fluoroquinolones and ampicillin and Strept constellatus. Repeat CT Abd 05/20 showing near complete resolution of perihepatic abscess. Drain output minimal so drain removed 05/22/21. Started on Pip/Sebastian on 2 AM and completed 7 days. Changed to Rocephin 2gm IV daily and added po Flagyl for plans for discharge. However, she started to have worsening abd pain possibly related to the Flagyl vs acute pancreatitis; we did change her to Augmentin. Abdominal pain improved and tolerating oral intake. Plan to continue Rocephin through 05/28 then Augmentin monotherapy for an additional 2 weeks. Patient will follow up with General Surgery here and GI clinic at [facility]. Will need followup imaging to ensure no residual abscess formation (4) Pancreatic abscess: Code(s): K85.90 - Acute pancreatitis without necrosis or infection, unspecified Status: Acute Assessment and Plan: This is probably confluent with the hepatic abscess and abated with drainage. As above. (5) Ac
== END 2021-05-25 12:54 | disposition home or self-care (01) | DRG 720 ==
LOC: ANHED 05-15 02:02 → ANHIMU 05-15 18:07 → ANH2MED 05-22 14:38 → ANHIMU 05-28 13:54
PROVIDERS: Internal Medicine; Admitting Provider Internal Medicine; Emergency Provider Emergency Medicine; Visit Provider Internal Medicine
DX: A41.9 Sepsis, unspecified organism (principal); R65.20 Severe sepsis without septic shock; K85.90 Acute pancreatitis without necrosis or infection, unspecified; K86.1 Other chronic pancreatitis; K75.0 Abscess of liver; B96.29 Other Escherichia coli [E. coli] as the cause of diseases classified elsewhere; B95.4 Other streptococcus as the cause of diseases classified elsewhere; Z20.822 Contact with and (suspected) exposure to COVID-19; N17.0 Acute kidney failure with tubular necrosis; K21.9 Gastro-esophageal reflux disease without esophagitis; J96.12 Chronic respiratory failure with hypercapnia; E87.6 Hypokalemia; E43 Unspecified severe protein-calorie malnutrition; Z68.1 Body mass index [BMI] 19.9 or less, adult; R63.4 Abnormal weight loss; F17.210 Nicotine dependence, cigarettes, uncomplicated; E87.3 Alkalosis; E86.0 Dehydration; J44.9 Chronic obstructive pulmonary disease, unspecified; K59.00 Constipation, unspecified
CPT/HCPCS: 36415; 36569; 36600; 51701; 71045; 74150; 74176; 75989; 76775; 80048; 80053; 80069; 80307; 81001; 81025; 82150; 82805; 83605; 83690; 83735; 84100; 84132; 85025; 85027; 85610; 85730; 86140; 87040; 87070; 87075; 87077; 87086; 87186; 87205; 88104; 88108; 88305; 93005; 94640; 96361; 96365; 96375; 96376; 99285; A9270; C1751; C1769; C9113; C9803; J0696; J1170; J1650; J2405; J2543; J3475; J3480; J7030; J7040; J7120; U0003; U0005

== ENCOUNTER 2021-05-30 09:02 | Outpatient (CLI) | payer BC, SELFPAY | END 2021-05-30 09:03 | disposition home or self-care (01) | PROVIDERS: Visit Provider Internal Medicine | DX: K75.0 Abscess of liver (principal) | CPT/HCPCS: 99211; G0463 ==

== ENCOUNTER 2022-11-29 03:34 | Emergency (ER) | payer BC, SELFPAY ==
--- NOTE | ~2022-11-29 | CT_ITS ---
EXAMINATION: CT abdomen pelvis w con DATE: 11/29/2022 06:31 INDICATION: Left-sided abdominal pain. Diarrhea. TECHNIQUE: Computed tomography (CT) of the abdomen and pelvis was performed with 75 mL Omnipaque 350. intravenous contrast. Automated exposure control and iterative reconstruction technique were employe d. The dose-length product was 162.34 mGy-cm. COMPARISON: CT abdomen 05/20/2021 FINDINGS: The visualized portions of the lung bases are clear without pneumonia or pleural effusion. The heart size is normal. No pericardial effusion. There is diffuse hepatic steatosis. Calcifications in the spleen are consistent with old granulomatous disease. There are changes of cholecystectomy. T he pancreas demonstrates heterogeneous attenuation and calcifications, consistent with chronic pancre atitis. The adrenal glands and right kidney are normal. There is a 12 mm cyst in left kidney. There i s a gastrojejunostomy. There are no dilated loops of bowel. The appendix is normal. There is enlargem ent of the left rectus abdominis muscle. There is edema in the left anterior abdominal wall. Aortic a therosclerosis is noted. There are no pathologically enlarged lymph nodes. There is no ascites. There are chronic compression fractures of L1, L2, and L5. IMPRESSION: 1. Edema in the left anterior abdominal wall and enlargement of the left rectus abdominis muscle, con sistent with inflammation. Reviewed, dictated and finalized at location A. IMPRESSION: 1. Edema in the left anterior abdominal wall and enlargement of the left rectus abdominis muscle, consistent with inflammation.
--- NOTE | ~2022-11-29 | XR_ITS ---
EXAMINATION: XR chest 1V portable DATE: 11/29/2022 04:47 INDICATION: Vomiting. Abdominal pain. Supraventricular tachycardia. Nausea. TECHNIQUE: A single frontal view of the chest was obtained. COMPARISON: Chest single view 05/16/2021, CT abdomen and pelvis 11/29/2022 FINDINGS: There is no pneumonia, pleural effusion, or pneumothorax. The heart size is normal. IMPRESSION: 1. No acute cardiopulmonary disease. Reviewed, dictated and finalized at location A.
[2022-11-29 04:51] VITALS: BP 129/106; PULSE 129; RESP 12; O2SAT 98
[2022-11-29 05:04] LABS: Basophils Percent Auto 0.2 % (0.2-1.2); Hematocrit 35.7 % (37.0-47.0); Hemoglobin 12.4 g/dL (12.0-15.0); Immature Granulocyte Absolute 0.05 K/mm3 (0.00-0.031); Immature Granulocyte Percent A 0.3 % (0-0.5); Lymphocytes Absolute Auto 1.75 K/mm3 (0.9-3.2); Lymphocytes Percent Auto 11.6 % (18.3-44.2); Mean Corpuscular HGB Conc 34.7 g/dl (32-36); Mean Corpuscular Hemoglobin 30.9 pg (26-34); Monocytes Absolute Auto 1.4 K/mm3 (0.1-0.6); Monocytes Percent Auto 9.4 % (2.6-8.5); Neutrophils Absolute Auto 11.9 K/mm3 (1.3-6.7); Neutrophils Percent Auto 78.5 % (45.5-73.1); Platelet Count Result 366 k/mm3 (150-375); Red Blood Count 4.01 M/mm3 (4.2-5.4); Red Cell Distribution Width 13.9 % (11.5-14.5); White Blood Count 15.1 K/mm3 (4.5-10.0)
[2022-11-29 05:05] LABS: Lactic Acid Reflex 1.2 mmol/L (0.7-2.0)
[2022-11-29 05:06] LABS: Alanine Aminotransferase 25 U/L (6-35); Albumin Level 2.5 g/dL (3.5-5.1); Alkaline Phosphatase 110 U/L (38-126); Anion Gap 12 mmol/L (8-16); Aspartate Amino Transferase 22 U/L (14-36); Bilirubin,Total 0.4 mg/dL (0.2-1.3); Blood Urea Nitrogen 37 mg/dL (7-17); Calcium 7.6 mg/dL (8.4-10.2); Carbon Dioxide 19 mmol/L (22-30); Chloride 100 mmol/L (98-107); Estimated Glomerular Filt Rate > 60; Glucose 111 mg/dL (65-110); Lipase 81 U/L (23-300); Potassium 3.8 mmol/L (3.4-5.0); Sodium 131 mmol/L (137-145)
[2022-11-29 05:08] LABS: Prothrombin Time 13.4 Seconds (11.1-14.7)
[2022-11-29 05:09] LABS: Partial Thromboplastin Time 26.8 SECONDS (22.3-36.8)
[2022-11-29 05:18] LABS: Troponin I < 0.012 ng/mL (0.000-0.034)
--- NOTE | 2022-11-29 05:25 | PC.NURSE ---
IV site in left forearm and IV site in right forearm infiltrated at this time. Dayo RN to attempt ultrasound IV
[2022-11-29] MEDS: HYDROmorphone HCL INJ (*CRX) 1 MG/ML SYR IV PUSH ×2 (05:31→06:59)
--- NOTE | 2022-11-29 05:42 | ED.GENADULT ---
HPI - General Adult General Chief complaint: Abdominal Pain <Hector Vogel MD - Last Filed: 11/29/22 06:54> History of Present Illness HPI narrative: Patient is a 42-year-old female who presents the emergency department with chief complaint of abdominal pain. Patient reports that she has history of chronic pancreatitis reports that she started having pain patient reports not really been able to keep much down and reports that she feels extremely dehydrated. Patient reports the pain is mostly in the right side of her abdomen patient reports that she feels nauseated patient denies fever but does report that she feels extremely tachycardic when EMS was called the patient had a heart rate of 160. <Hector Vogel MD - Last Filed: 11/29/22 06:54> Related Data Allergies/adverse reactions: Allergies Allergy/AdvReac Type Severity Reaction Status Date / Time morphine Allergy Itching Verified 11/29/22 05:07 hydrocodone [From Vicodin] AdvReac Vomiting Verified 11/29/22 05:07 <Hector Vogel MD - Last Filed: 11/29/22 06:54> Review of Systems Review of Systems: A 10 system review of systems was completed on the patient and is negative except for what is stated in the HPI. Nursing and ancillary documentation was reviewed. <Hector Vogel MD - Last Filed: 11/29/22 06:54> [facility] Past Medical History Medical History: Medical History Chronic hypercapnic respiratory failure Chronic pancreatitis Infected pseudocyst of pancreas <Hector Vogel MD - Last Filed: 11/29/22 06:54> Surgical History Surgical History: Surgical History History of ERCP <Hector Vogel MD - Last Filed: 11/29/22 06:54> Family History Family History: Family History Other COPD (chronic obstructive pulmonary disease) <Hector Vogel MD - Last Filed: 11/29/22 06:54> Social History Social History: Social History Social History: She has been unemployed for several years and lives with family members. She has 3 boxers and a [place] Terrier as pets. She has smoked up to 1 pack of cigarettes per day since she was 12 years old. She used to drink alcohol heavily until 3-4 years ago. She smokes marijuana frequently. She denies other illicit substance use. Smoking packs per day: 1 Smoking cigarettes per day: 20.0 Years smoked: 28 Smoking pack-years: 28.00 Smoking status: Current every day smoker Tobacco type: cigarettes Alcohol intake: former Substance use: current Substance use type: marijuana Living arrangements: with family Occupation/Education: unemployed Spiritual care concerns: No <Hector Vogel MD - Last Filed: 11/29/22 06:54> Exam Narrative: GENERAL: Well-appearing, well-nourished, and in no acute distress. HEAD: Normocephalic, atraumatic. EYES: PERRLA and EOMI. ENT: Nares clear, no rhinorrhea or epistaxis. Mucous membranes moist. NECK: Supple. CHEST: Clear to auscultation. No respiratory distress. HEART: Tachycardic rate and rhythm. No murmur heard. Normal peripheral pulses. ABDOMEN: Soft, diffusely tender to palpation, nondistended, normal active bowel sounds. EXTREMITIES: Normal range of motion. No edema. SKIN: Warm, dry, no rash. NEURO: No focal deficits. Alert and oriented x3. PSYCH: Normal mood and affect. <Hector Vogel MD - Last Filed: 11/29/22 06:54> Course Reevaluation(s) Reevaluation #1: Dr. vogel signed out patient this morning reporting that patient to be discharged after her third liter of IV fluids. PAtient has completed her fluids. She has no nausea or vomiting. CT shows abdominal wall inflammation as ca
[2022-11-29] MEDS: PROCHLORPERAZINE EDISYLATE 10 MG/2 ML VIAL IV PUSH (05:58)
[2022-11-29 06:37] VITALS: BP 125/98; PULSE 116; PULSE 119; RESP 14; RESP 22; O2SAT 100
[2022-11-29 06:46] VITALS: BP 119/95; PULSE 115; RESP 16
[2022-11-29 06:54] LABS: Appearance Urine Cloudy (Clear); Bacteria Urine 3+ /hpf; Bilirubin Urine Negative (Negative); Blood Urine Negative (Negative); Color Urine Yellow (Yellow); Glucose Urine UA Negative (Negative); Ketones Urine 4+ mg/dL (Negative); Leukocyte Esterase Ur Negative LEU/UL (Negative); Need Manual Microscopic Reviewed; Nitrate Urine Negative (Negative); Protein Urine 1+ mg/dL (Negative); Specific Grav Ur 1.028 (1.001-1.035); Squamous Epithelial Cell Urine Moderate /hpf (Few); Urobilinogen Urine 0.2 mg/dL (<2.0)
[2022-11-29 06:56] LABS: Add Urine Microscopic? YES
[2022-11-29 07:00] VITALS: PULSE 111; RESP 17
[2022-11-29] MEDS: SODIUM CHLORIDE 0.9% IV 1,000 ML 999 ML IV CONT (07:03)
--- NOTE | 2022-11-29 08:05 | PC.NURSE ---
0335- Triage note on chart due to down time. Night RN writes arrives via EMS with reports of lft side abd pain radiating to her back which began 5 days ago. c/o N&V. rates pain of a 7.
[2022-11-29] MEDS: SODIUM CHLORIDE 0.9% IV 2,000 ML 999 ML IV CONT (08:11)
[2022-11-29 08:16] VITALS: BP 134/112; O2SAT 88
== END 2022-11-29 09:20 | disposition home or self-care (01) ==
PROVIDERS: Emergency Provider Emergency Medicine; PCP Physician Assistant
DX: R10.84 Generalized abdominal pain (principal); R11.2 Nausea with vomiting, unspecified; K86.1 Other chronic pancreatitis; J96.12 Chronic respiratory failure with hypercapnia; F17.210 Nicotine dependence, cigarettes, uncomplicated; R60.9 Edema, unspecified
CPT/HCPCS: 36415; 71045; 74177; 80053; 81001; 83605; 83690; 84484; 85025; 85610; 85730; 87040; 87077; 87086; 87088; 87186; 96361; 96374; 96375; 96376; 99284; J0780; J1170; J7030; Q9967

== ENCOUNTER 2022-12-02 02:52 | Inpatient (IN) | payer BC, SELFPAY ==
[2022-12-02] VITALS (24 sets, daily range): BP systolic 110–129; BP diastolic 76–104; PULSE 111–138; RESP 8–135; TEMP 36.2–37.3; O2SAT 97–100; BMI 13.6
--- NOTE | ~2022-12-02 | XR_ITS ---
XR chest PICC line 12/04/2022 11:42 Indication: PICC line insertion Procedure: AP portable chest Comparison: 11/29/2022 Findings: Right subclavian PICC line tip in the SVC. Heart size normal. No focal air space disease, p ulmonary edema, pleural effusion or suspected pneumothorax. Impression: 1: Right subclavian PICC line tip in the SVC. Reviewed, dictated and finalized at location B. Impression: 1: Right subclavian PICC line tip in the SVC.
--- NOTE | ~2022-12-02 | CT_ITS ---
EXAMINATION: CT abdomen pelvis w con DATE: 12/02/2022 04:00 INDICATION: Generalized abdominal pain. Nausea, vomiting, and diarrhea. TECHNIQUE: Computed tomography (CT) of the abdomen and pelvis was performed with 70 mL Omnipaque 350 intravenous contrast. Automated exposure control and iterative reconstruction technique were employed . The dose-length product was 180.30 mGy-cm. COMPARISON: CT abdomen and pelvis 11/29/2022 FINDINGS: The visualized portions of the lung bases are clear without pneumonia or pleural effusion. The heart size is normal. No pericardial effusion. The liver is normal. There are changes of cholecys tectomy. Calcifications in the spleen are consistent with old granulomatous disease. There are change s of gastrojejunostomy. There is wall thickening of the stomach and small bowel. The pancreas demonst rates parenchymal calcifications and heterogeneous attenuation, consistent with chronic pancreatitis. There is a 1.5 cm pseudocyst in the body of the pancreas. The adrenal glands and kidneys are normal. Aortic atherosclerosis is noted. There is liquid stool in the colon correlating with the symptom of diarrhea. The appendix is normal. There is mild gastrohepatic and mesenteric lymphadenopathy, likely reactive. Body wall edema is noted. Again seen is enlargement of left rectus abdominis muscle, consis tent with inflammation. There is physiologic fluid in the pelvis. There are chronic compression fract ures of L1, L2, and L5. IMPRESSION: 1. Wall thickening of the stomach and small bowel, consistent with gastroenteritis. 2. Mild abdominal lymphadenopathy, likely reactive. 3. Chronic pancreatitis. 4. Enlargement of the left rectus abdominis muscle again seen, consistent with inflammation. Reviewed, dictated and finalized at location A. IMPRESSION: 1. Wall thickening of the stomach and small bowel, consistent with gastroenteri tis. 2. Mild abdominal lymphadenopathy, likely reactive. 3. Chronic pancreatitis. 4. Enlargement of the left rectus abdominis muscle again seen, consistent with inflammation.
--- NOTE | ~2022-12-02 | US_ITS ---
US renal BI 12/02/2022 12:24 Procedure: Realtime transabdominal ultrasound of the kidneys and bladder. Indication: No urine output Comparison: No prior studies for comparison. Findings: Renal echotexture is normal bilaterally without hydronephrosis, contour deforming mass or r enal calculus. The right kidney measures 9 cm and left kidney measures 9.9 cm. Ott catheter present in the bladder. Impression: 1: Unremarkable renal ultrasound. No stones, masses or hydronephrosis. Reviewed, dictated and finalized at location B. Impression: 1: Unremarkable renal ultrasound. No stones, masses or hydronephrosis.
[2022-12-02 03:19] LABS: Basophils Percent Auto 0.2 % (0.2-1.2); Eosinophils Percent Auto 0.2 % (0-4.4); Hematocrit 26.7 % (37.0-47.0); Hemoglobin 8.9 g/dL (12.0-15.0); Immature Granulocyte Absolute 0.09 K/mm3 (0.00-0.031); Immature Granulocyte Percent A 0.5 % (0-0.5); Lymphocytes Absolute Auto 1.32 K/mm3 (0.9-3.2); Lymphocytes Percent Auto 7.7 % (18.3-44.2); Mean Corpuscular HGB Conc 33.3 g/dl (32-36); Mean Corpuscular Hemoglobin 30.3 pg (26-34); Mean Corpuscular Volume 90.8 fl (80-100); Mean Platelet Volume 10.8 fl (7.4-10.4); Monocytes Absolute Auto 1.6 K/mm3 (0.1-0.6); Monocytes Percent Auto 9.1 % (2.6-8.5); Neutrophils Absolute Auto 14.2 K/mm3 (1.3-6.7); Neutrophils Percent Auto 82.3 % (45.5-73.1); Platelet Count Result 395 k/mm3 (150-375); Red Blood Count 2.94 M/mm3 (4.2-5.4); Red Cell Distribution Width 14.2 % (11.5-14.5); White Blood Count 17.2 K/mm3 (4.5-10.0)
--- NOTE | 2022-12-02 03:23 | ED.ABDPAIN ---
HPI - Abdominal Pain General Chief Complaint: Abdominal Pain Stated Complaint: abd pain Time Seen by Provider: 12/02/22 03:03 History of Present Illness HPI narrative: Patient is a 42-year-old female who presents the emergency department with chief complaint of nausea and vomiting. Patient reports that she was seen recently in the emergency department found to have an abdominal wall lesion and had nausea and vomiting that was able to be resolved patient reports that she has been having black stool and reports that she has been feeling extremely weak and unable to keep fluids down. Related Data Allergies Allergy/AdvReac Type Severity Reaction Status Date / Time morphine Allergy Itching Verified 11/29/22 05:07 hydrocodone [From Vicodin] AdvReac Vomiting Verified 11/29/22 05:07 Review of Systems Review of Systems: A 10 system review of systems was completed on the patient and is negative except for what is stated in the HPI. Nursing and ancillary documentation was reviewed. [facility] Past Medical History Medical History Chronic hypercapnic respiratory failure Chronic pancreatitis Infected pseudocyst of pancreas Surgical History Surgical History History of ERCP Family History Family History Other COPD (chronic obstructive pulmonary disease) Social History Social History Social History: She has been unemployed for several years and lives with family members. She has 3 boxers and a [place] Terrier as pets. She has smoked up to 1 pack of cigarettes per day since she was 12 years old. She used to drink alcohol heavily until 3-4 years ago. She smokes marijuana frequently. She denies other illicit substance use. Smoking packs per day: 1 Smoking cigarettes per day: 20.0 Years smoked: 28 Smoking pack-years: 28.00 Smoking status: Current every day smoker Tobacco type: cigarettes Alcohol intake: former Substance use: current Substance use type: marijuana Living arrangements: with family Occupation/Education: unemployed Spiritual care concerns: No Exam Narrative: GENERAL: Ill-appearing, emaciated, and in mild acute distress. HEAD: Normocephalic, atraumatic. EYES: PERRLA and EOMI. ENT: Nares clear, no rhinorrhea or epistaxis. Mucous membranes moist. NECK: Supple. CHEST: Clear to auscultation. No respiratory distress. HEART: Tachycardic rate and rhythm. No murmur heard. Normal peripheral pulses. ABDOMEN: Soft, diffuse mild tenderness, nondistended, normal active bowel sounds. : Black colored stool that is guaiac positive EXTREMITIES: Normal range of motion. No edema. SKIN: Warm, dry, no rash. NEURO: No focal deficits. Alert and oriented x3. PSYCH: Normal mood and affect. Course Vital Signs Vital signs: Vital Signs Pulse Rate 136 H 12/02/22 02:41 Temperature 37.3 C 12/02/22 02:59 Pulse Rate 136 H 12/02/22 02:59 Respiratory Rate 16 12/02/22 02:59 Blood Pressure 129/103 H 12/02/22 02:59 Pulse Oximetry 97 12/02/22 02:59 Oxygen Delivery Room Air 12/02/22 02:59 MDM - Abdominal Pain MDM Narrative Medical decision making narrative: Differential diagnosis includes intra-abdominal infection, GI bleed, dehydration, sepsis, COVID Patient was initially tachycardic with a heart rate in the 130s patient received IV fluids blood pressure and heart rate has come down 120s patient is currently afebrile Laboratory studies showed a white count of 17,000 Lactic acid was 1.[address] scan of the abdomen pelvis showed chronic pancreatitis gastroenteritis Lab Data 12/02/22 03:11 12/02/22 03:11 Labs: Lab Results 12/02/22 12/02/22 12/02/22 Range/Units 03:1
[2022-12-02 03:31] LABS: Lactic Acid Reflex 1.8 mmol/L (0.7-2.0)
[2022-12-02] MEDS: ONDANSETRON INJ 4 MG/2 ML VIAL IV PUSH ×3 (03:31→14:09)
[2022-12-02 03:32] LABS: Alanine Aminotransferase 18 U/L (6-35); Albumin Level 2.2 g/dL (3.5-5.1); Alkaline Phosphatase 84 U/L (38-126); Anion Gap 4 mmol/L (8-16); Aspartate Amino Transferase 20 U/L (14-36); Bilirubin,Total 0.3 mg/dL (0.2-1.3); Blood Urea Nitrogen 33 mg/dL (7-17); Calcium 7.2 mg/dL (8.4-10.2); Carbon Dioxide 29 mmol/L (22-30); Chloride 99 mmol/L (98-107); Estimated CRCL calculation 48 ml/min; Estimated Glomerular Filt Rate > 60; Glucose 115 mg/dL (65-110); Lipase 64 U/L (23-300); Potassium 3.3 mmol/L (3.4-5.0); Sodium 132 mmol/L (137-145)
[2022-12-02] MEDS: SODIUM CHLORIDE 0.9% IV 1,000 ML 999 ML IV CONT (03:32)
[2022-12-02] MEDS: HYDROmorphone HCL INJ (*CRX) 1 MG/ML SYR IV PUSH ×4 (03:32→20:12)
[2022-12-02] MEDS: PANTOPRAZOLE SODIUM IV 40 MG VIAL IV PUSH ×2 (03:37→20:16)
[2022-12-02 03:50] LABS: Magnesium 1.7 mg/dL (1.6-2.3)
[2022-12-02] MEDS: LORazepam INJ (*CRX) 2 MG/ML VIAL 0.5 MG IV PUSH (04:22)
--- NOTE | 2022-12-02 06:45 | ECG_ITS ---
Measurements Intervals [place] Rate: 120 P: CA: 0 QRS: 81 QRSD: 86 T: 59 QT: 303 QTc: 428 Interpretive Statements SINUS TACHYCARDIA ABNORMAL RHYTHM ECG COMPARED TO ECG 05/15/2021 03:42:25 NO DIFFERENCE Electronically Signed On 12-02-2022 12:03:50 CDT by Laron Cobos M.D.
[2022-12-02 07:12] LABS: Appearance Urine Clear (Clear); Bacteria Urine 2+ /hpf; Bilirubin Urine Negative (Negative); Blood Urine 2+ (Negative); Color Urine Yellow (Yellow); Glucose Urine UA Negative (Negative); Ketones Urine 2+ mg/dL (Negative); Leukocyte Esterase Ur Negative LEU/UL (Negative); Mucus Urine Present /lpf; Nitrate Urine Negative (Negative); Non Pathogenic Casts 0-2; Protein Urine Trace mg/dL (Negative); Specific Grav Ur 1.071 (1.001-1.035); Squamous Epithelial Cell Urine Few /hpf (Few); Urobilinogen Urine 0.2 mg/dL (<2.0); pH Urine 6.5 (5.0-9.0)
[2022-12-02 07:13] LABS: Add Urine Microscopic? YES
[2022-12-02 07:22] LABS: Influenza A QL RT-PCR Negative (Negative); Influenza B QL RT-PCR Negative (Negative); SARS-CoV-2 RNA PCR Positive (Negative)
[2022-12-02] MEDS: metroNIDAZOLE 500 MG/ISO 100ML 500 MG/100 ML BAG 100 MG IVPB (08:56)
--- NOTE | 2022-12-02 09:35 | PM.IMHP ---
H&P: HPI History of Present Illness Date/Time: 12/02/22 09:35 Chief Complaint: nausea, vomiting, abdominal wall pain, Covid positive Narrative: This is a 42-year-old female patient with history of chronic pancreatitis from former alcohol abuse and current tobacco abuse sought care in the emergency department for persistent nausea and vomiting inability to maintain any oral intake. Patient reports that she was being in the ER few days ago and was not able to tolerate her pain and nausea medicine at home so she returned to the ER last night. Patient also reported diarrheal stools ongoing for several months status post gastrojejunostomy surgery. She reports that the last several bouts have been melanotic. She also history of C diff denies fever chills. Patient reports chronic daily marijuana use. She also reports significant stress with her sister being admitted to the hospital just recently ventilated COVID positive. She and her sister were sharing drinks and laying around on the couch together. Patient reports that with her being sick and her sister being so sick that she is experiencing severe anxiety. Patient states that she takes hydroxyzine p.r.n. for anxiety is requesting a dose of something for anxiety. She has also noted that she has not had any urine output since coming to the hospital except for a few drops of urine that was tested and urinary tract infection was diagnosed. Review of Systems Review of Systems: All systems reviewed & are unremarkable except as noted in HPI and below Constitutional: Comments: Denies fever chills Cardiovascular: Comments: No chest pain shortness a breath Respiratory: Comments: No shortness of breath cough or wheezing Gastrointestinal: Comments: Positive melanotic diarrheal stools and episode of heartburn 2 days ago Genitourinary: Comments: No urine output Musculoskeletal: Comments: Left abdominal wall extreme tenderness with inflammation on CT Psychiatric: Comments: Significant anxiety PMFSH Past Medical History Medical History (Updated 12/02/22 @ 12:50 by Mookie Hanna APRN) Anxiety Chronic anemia Chronic diarrhea Chronic hypercapnic respiratory failure Chronic pancreatitis Infected pseudocyst of pancreas Surgical History Surgical History (Updated 12/02/22 @ 12:50 by Mookie Hanna APRN) H/O bypass gastrojejunostomy History of ERCP Family History Family History Other COPD (chronic obstructive pulmonary disease) Social History Social History Social History: She has been unemployed for several years and lives with family members. She has 3 boxers and a [place] Terrier as pets. She has smoked up to 1 pack of cigarettes per day since she was 12 years old. She used to drink alcohol heavily until 3-4 years ago. She smokes marijuana frequently. She denies other illicit substance use. Smoking packs per day: 1 Smoking cigarettes per day: 20.0 Years smoked: 25 Smoking pack-years: 25.00 Smoking status: Current every day smoker Tobacco type: cigarettes Alcohol intake: former Substance use: current Substance use type: marijuana Other substance usage details: 5-6 joints per day Last use: 12/01/22 Lack of Transportation: No Lack of Food: Never True Current Housing: I Have Housing Concerned About Future Housing: No Difficulty Paying Gas/Electric Bills: No Difficulty Paying for Meds: No Currently Unemployed: No Education: Decline to Answer Difficulty w/ Childcare or Family Care: No Living arrangements: with family Occupation/Education: unemployed Spiritual care concerns: No Meds Home Medications and Allergies Home Medications Medication Instructions Recorded Confirmed Type amoxicillin 500 mg-potassium 1 tablet PO Q8HR 18 days #53 tabs 05/25
[2022-12-02 12:31] LABS: Basophils Percent Auto 0.3 % (0.2-1.2); Hematocrit 25.7 % (37.0-47.0); Hemoglobin 8.3 g/dL (12.0-15.0); Immature Granulocyte Absolute 0.11 K/mm3 (0.00-0.031); Immature Granulocyte Percent A 0.7 % (0-0.5); Lymphocytes Absolute Auto 2.33 K/mm3 (0.9-3.2); Lymphocytes Percent Auto 14.8 % (18.3-44.2); Mean Corpuscular HGB Conc 32.3 g/dl (32-36); Mean Corpuscular Hemoglobin 29.9 pg (26-34); Mean Corpuscular Volume 92.4 fl (80-100); Mean Platelet Volume 10.8 fl (7.4-10.4); Monocytes Absolute Auto 1.7 K/mm3 (0.1-0.6); Monocytes Percent Auto 10.6 % (2.6-8.5); Neutrophils Absolute Auto 11.6 K/mm3 (1.3-6.7); Neutrophils Percent Auto 73.6 % (45.5-73.1); Platelet Count Result 390 k/mm3 (150-375); Red Blood Count 2.78 M/mm3 (4.2-5.4); Red Cell Distribution Width 14.6 % (11.5-14.5); White Blood Count 15.7 K/mm3 (4.5-10.0)
[2022-12-02 12:41] LABS: Magnesium 1.5 mg/dL (1.6-2.3)
[2022-12-02 12:42] LABS: Anion Gap 5 mmol/L (8-16); Blood Urea Nitrogen 25 mg/dL (7-17); Carbon Dioxide 28 mmol/L (22-30); Chloride 101 mmol/L (98-107); Potassium 3.4 mmol/L (3.4-5.0); Sodium 134 mmol/L (137-145)
[2022-12-02 12:43] LABS: Albumin Level 2.3 g/dL (3.5-5.1); Calcium 7.1 mg/dL (8.4-10.2); Creatine Kinase 62 U/L (30-135); Estimated CRCL calculation 55 ml/min; Estimated Glomerular Filt Rate > 60; Glucose 84 mg/dL (65-110); Lipase 208 U/L (23-300); Phosphorus 1.8 mg/dL (2.5-4.5)
[2022-12-02] MEDS: LACTATED RINGERS 1,000 ML 100 ML IV CONT (13:01)
[2022-12-02] MEDS: hydrOXYzine HCL 25 MG TABLET 50 MG PO (13:08)
[2022-12-02] MEDS: POTASSIUM CHLORIDE INJ 40 MEQ in SODIUM CHLORIDE 0.9% IV 500 ML 130 MEQ IVPB (13:08)
[2022-12-02 13:27] LABS: Iron 22 ug/dL (37-170)
[2022-12-02 13:36] LABS: Percent Iron Saturation 12 % (20-50)
[2022-12-02 13:51] LABS: Folic Acid 6.2 ng/mL (2.76->20)
[2022-12-02 14:45] LABS: INR 1.1; Prothrombin Time 14.8 Seconds (11.1-14.7)
--- NOTE | 2022-12-02 15:46 | WPDGICN ---
Assessment and Plan Assessment and plan (1) Chronic pancreatitis: Code(s): K86.1 - Other chronic pancreatitis Status: Acute Assessment and Plan: as stated above, she is followed for chronic pancreatitis at [facility]. She does take Creon, 25553 units with each meal. She states that she has not had any alcohol for at least 1 year. her lipase was only 64 few days ago when she came to the emergency room. Today it is over 200. For her that is probably high because with chronic pancreatitis she probably cannot mount much of a lipase bump. (2) Abdominal pain: Code(s): R10.9 - Unspecified abdominal pain Status: Acute Assessment and Plan: Her pain was briefly better after celiac nerve plexus. He is again having pain which is primarily to the left of center in the mid abdomen. It is there all the time and tender to the touch. Nothing affected such as movement or eating. It has gotten worse in the last couple weeks. (3) Chronic anemia: Code(s): D64.9 - Anemia, unspecified Status: Acute Assessment and Plan: Her hemoglobin a year ago was 9.3. On admission was 12.4 and today is 8.9. I suspect that the 12.4 was due to dehydration. There is no sign of gastrointestinal bleeding. She denies taking NSAIDs. She is however on tramadol for her pain. Her stools have been light brown. (4) Chronic diarrhea: Code(s): K52.9 - Noninfective gastroenteritis and colitis, unspecified Status: Acute Assessment and Plan: She has a bowel movement which was liquid every time she eats and even in between. She has history of C diff infection in the past will be recheck for that now. (5) Electrolyte abnormality: Code(s): E87.8 - Other disorders of electrolyte and fluid balance, not elsewhere classified Status: Acute Assessment and Plan: She has abnormal electrolytes including a phosphorus of 1.8, magnesium 1.5. (6) Dehydration: Code(s): E86.0 - Dehydration Status: Acute Assessment and Plan: her BUN on admission is 37. Has come down today at 25. This is in contrast to a level of 4 when she was hospitalized over a year ago. I suspect this may be due to dehydration. Oddly however creatinine which was between 1 and 1.2 in May of last year is now 0.6. Plan Continue to monitor and stabilize electrolytes advanced diet as tolerated. She would like to take a few sips today but does not even feel hungry enough to try a full liquid tray. She will be checked for C diff. GI Consult Note Consult date/time: 12/02/22 15:46 HPI: Chio Cunningham is a 42 year old female who presented to the emergency room with complaints of abdominal pain and severe nausea and vomiting. She had been emergency room a few days ago with same symptoms. She was given Dilaudid and felt better was able to tolerate some ice chips and was sent home. Apparently she went home with a prescription for Percocet but it did not help. She has a long history of having had pancreatitis. She developed chronic pancreatitis from alcohol abuse. She no longer drinks alcohol. She been hospitalized over a year ago here when she developed an abscess that was drained by Radiology. She has been followed for several years by [facility] Department of Gastroenterology, previously Dr. Clancy, but he has since moved on. Now she sees a doctor Norah. several months ago she had a gastrojejunostomy performed. She states the reason for that was because she was not digesting her food. She describes it sounds like gastric outlet obstruction. She states that after that procedure she was gaining weight, about 20 lb but then developed severe abdominal pain. She was offered celiac nerve block which was done. That relieve her pain only for about 8 weeks and immediately after that procedure she began having diarrhea which she had not had postop. Since then she has
[2022-12-02] MEDS: REMDESIVIR 200 MG/NS 250 ML 200 MG/250 ML BAG 250 MG IVPB (17:59)
[2022-12-02] MEDS: GABAPENTIN 100 MG CAPSULE PO (18:59)
[2022-12-02] MEDS: CHOLESTYRAMINE LIGHT 4 GM POWD.PACK PO (18:59)
[2022-12-02] MEDS: NICOTINE (*PBKC) 21 MG PATCH 1 PATCH TRANSDERM (19:00)
[2022-12-02] MEDS: POTASSIUM/PHOSPHORUS/SODIUM 1.5 GM PACKET 1 PACKET PO (19:00)
[2022-12-02] MEDS: IRON SUCROSE COMPLEX 500 MG in SODIUM CHLORIDE 0.9% IV 250 ML 78.57 MG IVPB (19:00)
[2022-12-02] MEDS: MAGNESIUM SULFATE 3GM/D5W100ML 3 GM/100 ML BAG IVPB (19:01)
[2022-12-02] MEDS: hydrOXYzine HCL 25 MG TABLET PO (20:16)
[2022-12-02] MEDS: traZODone HCL 50 MG TABLET 150 MG PO (20:16)
[2022-12-02] MEDS: LACTATED RINGERS 1,000 ML 50 ML IV CONT (20:17)
[2022-12-03] VITALS (7 sets, daily range): BP systolic 94–120; BP diastolic 67–89; PULSE 97–125; RESP 14–18; TEMP 36.2–37.1; O2SAT 98–100
[2022-12-03] MEDS: HYDROmorphone HCL INJ (*CRX) 1 MG/ML SYR IV PUSH ×3 (02:29→20:23)
[2022-12-03] MEDS: ONDANSETRON INJ 4 MG/2 ML VIAL IV PUSH ×3 (02:30→20:22)
[2022-12-03 06:22] LABS: Basophils Percent Auto 0.2 % (0.2-1.2); Eosinophils Percent Auto 0.1 % (0-4.4); Hematocrit 25.7 % (37.0-47.0); Hemoglobin 8.2 g/dL (12.0-15.0); Immature Granulocyte Absolute 0.16 K/mm3 (0.00-0.031); Immature Granulocyte Percent A 0.9 % (0-0.5); Lymphocytes Absolute Auto 2.16 K/mm3 (0.9-3.2); Lymphocytes Percent Auto 12.2 % (18.3-44.2); Mean Corpuscular HGB Conc 31.9 g/dl (32-36); Mean Corpuscular Hemoglobin 29.7 pg (26-34); Mean Corpuscular Volume 93.1 fl (80-100); Monocytes Absolute Auto 1.1 K/mm3 (0.1-0.6); Monocytes Percent Auto 6.1 % (2.6-8.5); Neutrophils Absolute Auto 14.3 K/mm3 (1.3-6.7); Neutrophils Percent Auto 80.5 % (45.5-73.1); Platelet Count Result 376 k/mm3 (150-375); Red Blood Count 2.76 M/mm3 (4.2-5.4); White Blood Count 17.7 K/mm3 (4.5-10.0)
[2022-12-03 06:32] LABS: Alanine Aminotransferase 15 U/L (6-35); Albumin Level 1.6 g/dL (3.5-5.1); Alkaline Phosphatase 66 U/L (38-126); Anion Gap -3 mmol/L (8-16); Aspartate Amino Transferase 20 U/L (14-36); Bilirubin,Total 0.2 mg/dL (0.2-1.3); Blood Urea Nitrogen 17 mg/dL (7-17); Calcium 6.6 mg/dL (8.4-10.2); Carbon Dioxide 25 mmol/L (22-30); Chloride 102 mmol/L (98-107); Estimated CRCL calculation 65 ml/min; Estimated Glomerular Filt Rate > 60; Glucose 113 mg/dL (65-110); INR 1.2; Magnesium 2.2 mg/dL (1.6-2.3); Potassium 3.9 mmol/L (3.4-5.0); Prothrombin Time 16.3 Seconds (11.1-14.7); Sodium 124 mmol/L (137-145)
--- NOTE | 2022-12-03 07:32 | PM.IMPN ---
Progress Note: A&P Assessment and Plan (1) Electrolyte abnormality: Code(s): E87.8 - Other disorders of electrolyte and fluid balance, not elsewhere classified Status: Acute Assessment and Plan: 12/02: Hypokalemia and hypomagnesemia treated, now better 12/03: Hyponatremia with acute drop to 124 today and hypophosphatemia. Ordered sodium phosphate IV. Hypocalcemia noted. Ordered ionized calcium. Hypoalbuminemia noted 1.6. Ordered 5% albumin 250 mL over 4 hours. (2) Dehydration: Code(s): E86.0 - Dehydration Status: Acute Assessment and Plan: Minimal urine output upon admission, IV fluids given. Now hyponatremia, possibly from SIADH related to acute illness. (3) COVID-19: Code(s): U07.1 - COVID-19 Status: Acute Assessment and Plan: Positive testing with GI symptoms of nausea/vomiting. Started remdesivir due to substantial risk of decompensation. (4) Chronic pancreatitis: Code(s): K86.1 - Other chronic pancreatitis Status: Acute Assessment and Plan: s/p bypass gastrojejunostomy, normal lipase and no epigastric tenderness. (5) Chronic anemia: Code(s): D64.9 - Anemia, unspecified Status: Acute Assessment and Plan: Baseline appears 8-9, 8.9 on admit, will check labs for ongoing drop. Hemoglobin was 12.4 last week but that appears to be an outlier reading, possibly due to severe hemoconcentration.?IV iron added. 12/03: Hemoglobin 8.2 (6) Severe protein-calorie malnutrition: Code(s): E43 - Unspecified severe protein-calorie malnutrition Status: Acute Assessment and Plan: Patient on clears right now, pending GI consult for GI bleed. Will consult dietary when patient able to advance diet. 12/03: Dietary consult requested (7) UTI (urinary tract infection): Code(s): N39.0 - Urinary tract infection, site not specified Status: Acute Assessment and Plan: Elevated WBCs, UA shows urine bacteria with some WBCs but no leukocyte esterase. On IV rocephin pending cultures (8) Tobacco abuse: Code(s): Z72.0 - Tobacco use Status: Acute Assessment and Plan: Nicotine patch ordered (9) Anxiety: Code(s): F41.9 - Anxiety disorder, unspecified Status: Acute Assessment and Plan: Hydroxyzine used at home and ordered here. (10) Guaiac positive stools: Code(s): R19.5 - Other fecal abnormalities Status: Acute Assessment and Plan: GI evaluated patient, no evidence of active GI bleed Time Spent With Patient Time with patient: Greater than 35 minutes Subjective Date/time seen: 12/03/22 07:32 Interval history: 12/02/22? 09:35 Chief Complaint: nausea, vomiting, abdominal wall pain, Covid positive Narrative: This is a 42-year-old female patient with history of chronic pancreatitis from former alcohol abuse and current tobacco abuse sought care in the emergency department for persistent nausea and vomiting inability to maintain any oral intake.? Patient reports that she was being in the ER few days ago and was not able to tolerate her pain and nausea medicine at home so she returned to the ER last night.? Patient also reported diarrheal stools ongoing for several months status post gastrojejunostomy surgery.? She reports that the last several bouts have been melanotic.? She also history of C diff denies fever chills.? Patient reports chronic daily marijuana use.? She also reports significant stress with her sister being admitted to the hospital just recently ventilated COVID positive.? She and her sister were sharing drinks and laying around on the couch together.? Patient reports that with her being sick and her sister being so sick that she is experiencing severe anxiety.? Patient states that she takes hydroxyzine p.r.n. for anxiety is requesting a dose of something for anxiety.? She has also noted that she has not had any urine output since coming to the hospital except for a few
[2022-12-03 08:31] LABS: Lipase 247 U/L (23-300)
[2022-12-03] MEDS: LIPASE/AMYLASE/PROTEASE 12,000 UNITS CAP 3 CAP PO ×3 (08:35→17:37)
[2022-12-03] MEDS: GABAPENTIN 100 MG CAPSULE PO ×3 (08:35→17:36)
[2022-12-03] MEDS: PANTOPRAZOLE SODIUM IV 40 MG VIAL IV PUSH (08:36)
[2022-12-03] MEDS: hydrOXYzine HCL 25 MG TABLET PO ×2 (08:36→20:23)
[2022-12-03] MEDS: NICOTINE (*PBKC) 21 MG PATCH 1 PATCH TRANSDERM (08:37)
[2022-12-03] MEDS: CHOLESTYRAMINE LIGHT 4 GM POWD.PACK PO ×2 (08:37→17:36)
[2022-12-03] MEDS: ALBUMIN HUMAN 5% 250 ML IV CONT (08:37)
--- NOTE | 2022-12-03 10:20 | PCNFU ---
Nutrition Follow-Up Complete: Severe protein calorie malnutrition related to inadequate energy intake in the setting of chronic disease (chronic pancreatitis) as evidenced by significant weight loss of -21% in 3 months and inadequate po intake for greater than 1 month. Goal:Diet advanced meet estimated needs Pt current nutrition is Clear liquids today. Nutrition recommendation: Continue to advance diet as tolerated Last recorded weight is 33.8 kg. Bowel Motility: no BM recorded Labs Reviewed: Hgb:8.2, HCT:25.7, NA:124, Cr:0.5 Meds Noted: protonix, zofran, lactated ringers Skin: no skin issues noted Additional Notes: Pt diet advanced to clears, intake 50-100% at this time. Ensure clear on trays TID. Recommend to continue to advance diet as tolerated, add Ensure Enlive TID once on full liquids. Monitor diet order, intake, tolerance, wt, labs. Follow up in 3 days
[2022-12-03] MEDS: REMDESIVIR 100 MG/NS 250 ML 100 MG/250 ML BAG 250 MG IVPB (10:27)
[2022-12-03] MEDS: PSYLLIUM POWDER PACKET 1 PACKET PO (10:29)
[2022-12-03] MEDS: ACETAMINOPHEN 325 MG TABLET PO (11:51)
[2022-12-03] MEDS: LORazepam (*CRX) 0.5 MG TABLET PO ×2 (11:52→17:36)
[2022-12-03 15:59] LABS: IFOB Positive Control Positive; Immunochemical Fecal Occult Bl Positive (N)
[2022-12-03 18:12] LABS: Albumin Level 1.8 g/dL (3.5-5.1); Anion Gap 1 mmol/L (8-16); Blood Urea Nitrogen 11 mg/dL (7-17); Calcium 6.5 mg/dL (8.4-10.2); Carbon Dioxide 25 mmol/L (22-30); Chloride 100 mmol/L (98-107); Estimated CRCL calculation 65 ml/min; Estimated Glomerular Filt Rate > 60; Glucose 92 mg/dL (65-110); Phosphorus 4.5 mg/dL (2.5-4.5); Potassium 3.2 mmol/L (3.4-5.0); Sodium 126 mmol/L (137-145)
[2022-12-03] MEDS: PANTOPRAZOLE 40 MG TABLET PO (20:22)
[2022-12-03] MEDS: traZODone HCL 50 MG TABLET 150 MG PO (20:22)
[2022-12-04] VITALS (18 sets, daily range): BP systolic 86–110; BP diastolic 61–80; PULSE 90–108; RESP 14–22; TEMP 36.2–37.2; O2SAT 90–100
[2022-12-04] MEDS: hydrOXYzine HCL 25 MG TABLET PO ×2 (04:21→21:08)
[2022-12-04] MEDS: HYDROmorphone HCL INJ (*CRX) 1 MG/ML SYR IV PUSH ×4 (04:21→21:09)
[2022-12-04] MEDS: LACTATED RINGERS 1,000 ML 50 ML IV CONT (04:24)
[2022-12-04 07:02] LABS: Basophils Percent Auto 0.1 % (0.2-1.2); Eosinophils Percent Auto 0.3 % (0-4.4); Immature Granulocyte Absolute 0.13 K/mm3 (0.00-0.031); Immature Granulocyte Percent A 1.1 % (0-0.5); Lymphocytes Absolute Auto 2.82 K/mm3 (0.9-3.2); Mean Corpuscular HGB Conc 32.4 g/dl (32-36); Mean Corpuscular Hemoglobin 29.6 pg (26-34); Mean Corpuscular Volume 91.3 fl (80-100); Mean Platelet Volume 10.6 fl (7.4-10.4); Monocytes Percent Auto 8.1 % (2.6-8.5); Neutrophils Absolute Auto 8.3 K/mm3 (1.3-6.7); Neutrophils Percent Auto 67.4 % (45.5-73.1); Nucleated Red Blood Cells Perc 0.2 % (0.0-0.2); Platelet Count Result 300 k/mm3 (150-375); Red Blood Count 1.96 M/mm3 (4.2-5.4); White Blood Count 12.3 K/mm3 (4.5-10.0)
[2022-12-04 07:11] LABS: Alanine Aminotransferase 17 U/L (6-35); Albumin Level 1.7 g/dL (3.5-5.1); Alkaline Phosphatase 67 U/L (38-126); Anion Gap 1 mmol/L (8-16); Aspartate Amino Transferase 35 U/L (14-36); Bilirubin,Total < 0.1 mg/dL (0.2-1.3); Blood Urea Nitrogen 7 mg/dL (7-17); Calcium 6.6 mg/dL (8.4-10.2); Carbon Dioxide 28 mmol/L (22-30); Chloride 100 mmol/L (98-107); Estimated CRCL calculation 65 ml/min; Estimated Glomerular Filt Rate > 60; Glucose 101 mg/dL (65-110); Magnesium 1.7 mg/dL (1.6-2.3); Potassium 3.3 mmol/L (3.4-5.0); Sodium 129 mmol/L (137-145)
[2022-12-04 07:16] LABS: Hematocrit 17.9 % (37.0-47.0); Hemoglobin 5.8 g/dL (12.0-15.0)
--- NOTE | 2022-12-04 07:30 | WPDGIPROGNO ---
Progress Note: A&P Assessment and Plan (1) Chronic pancreatitis: Code(s): K86.1 - Other chronic pancreatitis Status: Acute Assessment and Plan: as stated above, she is followed for chronic pancreatitis at [facility]. She does take Creon, 25384 units with each meal. She states that she has not had any alcohol for at least 1 year. her lipase was only 64 few days ago when she came to the emergency room. Today it is over 200. For her that is probably high because with chronic pancreatitis she probably cannot mount much of a lipase bump. (2) Abdominal pain: Code(s): R10.9 - Unspecified abdominal pain Status: Acute Assessment and Plan: Her pain was briefly better after celiac nerve plexus. He is again having pain which is primarily to the left of center in the mid abdomen. It is there all the time and tender to the touch. Nothing affected such as movement or eating. It has gotten worse in the last couple weeks. 12/04/2022 her only pain today is the constant left-sided abdominal wall pain. CT scan showed: 1. Wall thickening of the stomach and small bowel, consistent with gastroenteritis. 2. Mild abdominal lymphadenopathy, likely reactive. 3. Chronic pancreatitis. 4. Enlargement of the left rectus abdominis muscle again seen, consistent with inflammation. (3) Chronic anemia: Code(s): D64.9 - Anemia, unspecified Status: Acute Assessment and Plan: Her hemoglobin a year ago was 9.3. On admission was 12.4 and today is 8.9. I suspect that the 12.4 was due to dehydration. There is no sign of gastrointestinal bleeding. She denies taking NSAIDs. She is however on tramadol for her pain. Her stools have been light brown. 12/04/2022 today her hemoglobin has dropped to 5.8. Her stool was Hemoccult positive. CT had shown some probable gastritis. Will schedule her for EGD today (4) Chronic diarrhea: Code(s): K52.9 - Noninfective gastroenteritis and colitis, unspecified Status: Acute Assessment and Plan: She has a bowel movement which was liquid every time she eats and even in between. She has history of C diff infection in the past will be recheck for that now. (5) Electrolyte abnormality: Code(s): E87.8 - Other disorders of electrolyte and fluid balance, not elsewhere classified Status: Acute Assessment and Plan: She has abnormal electrolytes including a phosphorus of 1.8, magnesium 1.5. (6) Dehydration: Code(s): E86.0 - Dehydration Status: Acute Assessment and Plan: her BUN on admission is 37. Has come down today at 25. This is in contrast to a level of 4 when she was hospitalized over a year ago. I suspect this may be due to dehydration. Oddly however creatinine which was between 1 and 1.2 in May of last year is now 0.6. Plan Continue to monitor and stabilize electrolytes advanced diet as tolerated. She would like to take a few sips today but does not even feel hungry enough to try a full liquid tray. She will be checked for C diff. Subjective Date/time seen: 12/04/22 07:30 She is feeling better. Tolerated full liquids last night and she is willing to try a regular diet this morning. Her abdominal pain persists. It is primarily left-sided and as always it is superficial. She states that it does not move and is not affected by eating. The CT scan showed thickening or inflammation of the left side of her abdominal wall and that had been present on a previous study as well. Exam Const: General: alert and thin Nutritional Appearance: thin Orientation/consciousness: patient oriented x3 Other: Appears older than her chronological age Resp: Auscultation: clear to auscultation bilaterally Cardio: Rhythm: regular rhythm GI: Inspection: normal to inspection Neuro: General: patient oriented x3 Objective Data Vital Signs Vital Signs: Vital Signs - 24 hr 12/03
[2022-12-04 07:38] LABS: Phosphorus 2.9 mg/dL (2.5-4.5)
--- NOTE | 2022-12-04 08:00 | PM.IMPN ---
Progress Note: A&P Assessment and Plan (1) Acute GI bleeding: Code(s): K92.2 - Gastrointestinal hemorrhage, unspecified Status: Acute Assessment and Plan: Fecal occult positive stools with acute hemoglobin drop to 5.8. Transfusion and patient to go for EGD today. (2) Blood loss anemia: Code(s): D50.0 - Iron deficiency anemia secondary to blood loss (chronic) Status: Acute Assessment and Plan: See 1. (3) Chronic pancreatitis: Code(s): K86.1 - Other chronic pancreatitis Status: Acute Assessment and Plan: as stated above, she is followed for chronic pancreatitis at [facility]. She does take Creon, 47419 units with each meal. She states that she has not had any alcohol for at least 1 year. her lipase was only 64 few days ago when she came to the emergency room. Today it is over 200. For her that is probably high because with chronic pancreatitis she probably cannot mount much of a lipase bump. (4) Abdominal pain: Code(s): R10.9 - Unspecified abdominal pain Status: Acute Assessment and Plan: Her pain was briefly better after celiac nerve plexus. He is again having pain which is primarily to the left of center in the mid abdomen. It is there all the time and tender to the touch. Nothing affected such as movement or eating. It has gotten worse in the last couple weeks. 12/04/2022 her only pain today is the constant left-sided abdominal wall pain. CT scan showed: 1. Wall thickening of the stomach and small bowel, consistent with gastroenteritis. 2. Mild abdominal lymphadenopathy, likely reactive. 3. Chronic pancreatitis. 4. Enlargement of the left rectus abdominis muscle again seen, consistent with inflammation. (5) Chronic anemia: Code(s): D64.9 - Anemia, unspecified Status: Acute Assessment and Plan: Her hemoglobin a year ago was 9.3. On admission was 12.4 and today is 8.9. I suspect that the 12.4 was due to dehydration. There is no sign of gastrointestinal bleeding. She denies taking NSAIDs. She is however on tramadol for her pain. Her stools have been light brown. 12/04/2022 today her hemoglobin has dropped to 5.8. Her stool was Hemoccult positive. CT had shown some probable gastritis. Will schedule her for EGD today (6) Chronic diarrhea: Code(s): K52.9 - Noninfective gastroenteritis and colitis, unspecified Status: Acute Assessment and Plan: She has a bowel movement which was liquid every time she eats and even in between. She has history of C diff infection in the past will be recheck for that now. (7) Electrolyte abnormality: Code(s): E87.8 - Other disorders of electrolyte and fluid balance, not elsewhere classified Status: Acute Assessment and Plan: She has abnormal electrolytes including a phosphorus of 1.8, magnesium 1.5. (8) Dehydration: Code(s): E86.0 - Dehydration Status: Acute Assessment and Plan: her BUN on admission is 37. Has come down today at 25. This is in contrast to a level of 4 when she was hospitalized over a year ago. I suspect this may be due to dehydration. Oddly however creatinine which was between 1 and 1.2 in May of last year is now 0.6. (9) COVID-19: Code(s): U07.1 - COVID-19 Status: Acute Assessment and Plan: Positive testing with GI symptoms of nausea/vomiting. Started remdesivir due to substantial risk of decompensation. (10) Severe protein-calorie malnutrition: Code(s): E43 - Unspecified severe protein-calorie malnutrition Status: Acute Assessment and Plan: Patient on clears right now, pending GI consult for GI bleed. Will consult dietary when patient able to advance diet. 12/03: Dietary consult requested (11) UTI (urinary tract infection): Code(s): N39.0 - Urinary tract infection, site not specified Status: Acute Assessment and Plan: Elevated
[2022-12-04 08:04] LABS: INR 1.5; Prothrombin Time 19.2 Seconds (11.1-14.7)
[2022-12-04] MEDS: NICOTINE (*PBKC) 21 MG PATCH 1 PATCH TRANSDERM (09:29)
[2022-12-04] MEDS: SODIUM CHLORIDE 0.9% IV 250 ML 30 ML IV CONT (09:43)
[2022-12-04] MEDS: ONDANSETRON INJ 4 MG/2 ML VIAL IV PUSH ×2 (09:48→16:03)
[2022-12-04] MEDS: REMDESIVIR 100 MG/NS 250 ML 100 MG/250 ML BAG 250 MG IVPB (09:53)
[2022-12-04] MEDS: LORazepam (*CRX) 0.5 MG TABLET PO (10:20)
[2022-12-04] MEDS: LIDOCAINE HCL 1% PF INJ 5 ML VIAL INFILTRATE (11:00)
[2022-12-04 12:50] LABS: Hemoglobin 8.2 g/dL (12.0-15.0)
[2022-12-04] MEDS: CENTRAL LINE FLUSH 10 ML IV PUSH ×3 (13:03→21:09)
--- NOTE | 2022-12-04 13:33 | WPDANESEPPF ---
Anes - Initial Pre Proc Eval Procedure: Operation Date: 12/04/22 15:45 Proposed Procedures p Esophagogastroduodenoscopy - Jesus Marcelino MD Date/Time: 12/04/22 13:33 Surgeon: Patty Marie DO Pre Op Diagnosis: Gastroenteritis/GI Bleed/Chronic Pancreatitis James Patient Data Age: 42 Gender: F Height: 1.57 m Weight: 33.8 kg Last Vital Signs Temp 37.2 C 12/04/22 12:21 Pulse 103 H 12/04/22 12:21 Resp 17 12/04/22 12:21 BP 101/78 12/04/22 12:21 Pulse Ox 100 12/04/22 12:21 O2 Del Method Room Air 12/04/22 08:00 Allergies Allergy/AdvReac Type Severity Reaction Status Date / Time morphine Allergy Itching Verified 12/02/22 12:01 hydrocodone [From Vicodin] AdvReac Vomiting Verified 12/02/22 12:01 Home Medications Medication Instructions Recorded Confirmed Type jicbuq-qgpqpqfk-emcnboi 2 cap PO TIDWM #90 caps 05/25/21 12/02/22 Rx 12,000-38,000-60,000 unit capsule,delayed rel (Creon) ondansetron 4 mg disintegrating 4 mg PO Q6H PRN nausea and 11/29/22 12/02/22 Rx tablet vomiting #14 tabs cholestyramine-aspartame 4 gram 1 ea PO BID 12/02/22 12/02/22 History oral powder (Cholestyramine Light) gabapentin 100 mg capsule 100 mg PO TID 12/02/22 12/02/22 History pantoprazole 40 mg PO DAILY 12/02/22 12/02/22 History psyllium 1 packet PO DAILY 12/02/22 12/02/22 History trazodone 150 mg tablet 150 mg PO HS 12/02/22 12/02/22 History Laboratory Tests 12/02/22 12/03/22 12/03/22 04:06 15:28 17:41 WBC RBC Hgb Hct MCV MCH MCHC RDW Plt Count MPV Immature Gran % (Auto) Neut % (Auto) Lymph % (Auto) Dunn % (Auto) Eos % (Auto) Baso % (Auto) Lymph # (Auto) Dunn # (Auto) Eos # (Auto) Baso # (Auto) Abs Immat Gran (auto) Absolute Neuts (auto) Absolute Nucleated RBC Nucleated RBC % PT INR Sodium 126 L mmol/L (137-145) Potassium 3.2 L mmol/L (3.4-5.0) Chloride 100 mmol/L (98-107) Carbon Dioxide 25 mmol/L (22-30) Anion Gap 1 L mmol/L (8-16) BUN 11 D mg/dL (7-17) Creatinine 0.50 L mg/dL (0.7-1.0) Estim Creat Clear Calc 65 ml/min Estimated GFR > 60 (59 - ) Glucose 92 mg/dL (65-110) Calcium 6.5 L mg/dL (8.4-10.2) Phosphorus 4.5 mg/dL (2.5-4.5) Magnesium Total Bilirubin AST ALT Alkaline Phosphatase Total Protein Albumin 1.8 L g/dL (3.5-5.1) Stl Occult Blood (IFOB) Positive H (N) Blood Type B Positive Antibody Screen Negative Crossmatch See Detail 12/04/22 12/04/22 06:48 12:39 WBC 12.3 H K/mm3 (4.5-10.0) RBC 1.96 L M/mm3 (4.2-5.4) Hgb 5.8 L* g/dL 8.2 L g/dL (12.0-15.0) (12.0-15.0) Hct 17.9 L* % 25.0 L % (37.0-47.0) (37.0-47.0) MCV 91.3 fl (80-100) MCH 29.6 pg (26-34) MCHC 32.4 g/dl (32-36) RDW 15.0 H % (11.5-14.5) Plt Count 300 k/mm3 (150-375) MPV 10.6 H fl (7.4-10.4) Immature Gran % (Auto) 1.1 H % (0-0.5) Neut % (Auto) 67.4 % (45.5-73.1) Lymph % (Auto) 23.0 % (18.3-44.2) Dunn % (Auto) 8.1 % (2.6-8.5) Eos % (Auto) 0.3 % (0-4.4) Baso % (Auto) 0.1 L % (0.2-1.2) Lymph # (Auto) 2.82 K/mm3 (0.9-3.2) Dunn # (Auto) 1.0 H K/mm3 (0.1-0.6) Eos # (Auto) 0.0 K/mm3 (0-0.3) Baso # (Auto) 0.0 K/mm3 (0.0-0.1) Abs Immat Gran (auto) 0.13 H K/mm3 (0.00-0.031) Absolute Neuts (auto) 8.3 H K/mm3 (1.3-6.7) Absolute Nucleat
[2022-12-04] MEDS: LACTATED RINGERS 1,000 ML 150 ML IV CONT (15:02)
--- NOTE | 2022-12-04 15:05 | SUR.OPER ---
Patient being pre oped and recovered in procedure room 3.
[2022-12-04] MEDS: GABAPENTIN 100 MG CAPSULE PO (16:03)
[2022-12-04] MEDS: CHOLESTYRAMINE LIGHT 4 GM POWD.PACK PO (16:03)
[2022-12-04] MEDS: LIPASE/AMYLASE/PROTEASE 12,000 UNITS CAP 3 CAP PO (16:03)
[2022-12-04 17:17] LABS: Hematocrit 25.3 % (37.0-47.0); Hemoglobin 8.5 g/dL (12.0-15.0)
[2022-12-04] MEDS: traZODone HCL 50 MG TABLET 150 MG PO (21:07)
[2022-12-04] MEDS: PANTOPRAZOLE 40 MG TABLET PO (21:08)
[2022-12-04] MEDS: LACTATED RINGERS 1,000 ML 100 ML IV CONT (21:08)
[2022-12-05] VITALS (13 sets, daily range): BP systolic 90–107; BP diastolic 70–87; PULSE 88–111; RESP 16; TEMP 36.1–37.2; O2SAT 99–100
[2022-12-05] MEDS: LORazepam (*CRX) 0.5 MG TABLET PO ×2 (00:56→11:34)
[2022-12-05 01:22] LABS: Hematocrit 22.2 % (37.0-47.0); Hemoglobin 7.4 g/dL (12.0-15.0)
[2022-12-05] MEDS: SODIUM CHLORIDE 0.9% IV 250 ML 50 ML (02:59)
[2022-12-05] MEDS: hydrOXYzine HCL 25 MG TABLET PO ×2 (04:56→20:37)
[2022-12-05] MEDS: HYDROmorphone HCL INJ (*CRX) 1 MG/ML SYR IV PUSH ×5 (04:56→22:18)
[2022-12-05] MEDS: CENTRAL LINE FLUSH 10 ML IV PUSH ×3 (06:30→20:37)
[2022-12-05 06:36] LABS: Basophils Percent Auto 0.1 % (0.2-1.2); Eosinophils Absolute Auto 0.1 K/mm3 (0-0.3); Eosinophils Percent Auto 0.5 % (0-4.4); Hematocrit 29.5 % (37.0-47.0); Hemoglobin 9.8 g/dL (12.0-15.0); Immature Granulocyte Absolute 0.11 K/mm3 (0.00-0.031); Lymphocytes Absolute Auto 2.79 K/mm3 (0.9-3.2); Lymphocytes Percent Auto 24.4 % (18.3-44.2); Mean Corpuscular HGB Conc 33.2 g/dl (32-36); Mean Corpuscular Hemoglobin 30.3 pg (26-34); Mean Corpuscular Volume 91.3 fl (80-100); Mean Platelet Volume 10.4 fl (7.4-10.4); Monocytes Absolute Auto 0.9 K/mm3 (0.1-0.6); Monocytes Percent Auto 7.7 % (2.6-8.5); Neutrophils Absolute Auto 7.6 K/mm3 (1.3-6.7); Neutrophils Percent Auto 66.3 % (45.5-73.1); Nucleated Red Blood Cells Perc 0.2 % (0.0-0.2); Platelet Count Result 270 k/mm3 (150-375); Red Blood Count 3.23 M/mm3 (4.2-5.4); Red Cell Distribution Width 15.1 % (11.5-14.5); White Blood Count 11.5 K/mm3 (4.5-10.0)
[2022-12-05 06:44] LABS: INR 1.4; Prothrombin Time 18.1 Seconds (11.1-14.7)
[2022-12-05 06:47] LABS: Alanine Aminotransferase 17 U/L (6-35); Albumin Level 1.7 g/dL (3.5-5.1); Alkaline Phosphatase 54 U/L (38-126); Anion Gap -1 mmol/L (8-16); Aspartate Amino Transferase 21 U/L (14-36); Bilirubin,Total 0.2 mg/dL (0.2-1.3); Blood Urea Nitrogen 3 mg/dL (7-17); Calcium 6.7 mg/dL (8.4-10.2); Carbon Dioxide 27 mmol/L (22-30); Chloride 102 mmol/L (98-107); Estimated CRCL calculation 65 ml/min; Estimated Glomerular Filt Rate > 60; Glucose 82 mg/dL (65-110); Magnesium 1.6 mg/dL (1.6-2.3); Phosphorus 3.3 mg/dL (2.5-4.5); Potassium 3.1 mmol/L (3.4-5.0); Sodium 128 mmol/L (137-145)
--- NOTE | 2022-12-05 07:07 | WPDGIPROGNO ---
Progress Note: A&P Assessment and Plan (1) Chronic pancreatitis: Code(s): K86.1 - Other chronic pancreatitis Status: Acute Assessment and Plan: as stated above, she is followed for chronic pancreatitis at [facility]. She does take Creon, 86330 units with each meal. She states that she has not had any alcohol for at least 1 year. her lipase was only 64 few days ago when she came to the emergency room. Today it is over 200. For her that is probably high because with chronic pancreatitis she probably cannot mount much of a lipase bump. (2) Abdominal pain: Code(s): R10.9 - Unspecified abdominal pain Status: Acute Assessment and Plan: Her pain was briefly better after celiac nerve plexus. He is again having pain which is primarily to the left of center in the mid abdomen. It is there all the time and tender to the touch. Nothing affected such as movement or eating. It has gotten worse in the last couple weeks. 12/04/2022 her only pain today is the constant left-sided abdominal wall pain. CT scan showed: 1. Wall thickening of the stomach and small bowel, consistent with gastroenteritis. 2. Mild abdominal lymphadenopathy, likely reactive. 3. Chronic pancreatitis. 4. Enlargement of the left rectus abdominis muscle again seen, consistent with inflammation. (3) Chronic anemia: Code(s): D64.9 - Anemia, unspecified Status: Acute Assessment and Plan: Her hemoglobin a year ago was 9.3. On admission was 12.4 and today is 8.9. I suspect that the 12.4 was due to dehydration. There is no sign of gastrointestinal bleeding. She denies taking NSAIDs. She is however on tramadol for her pain. Her stools have been light brown. 12/04/2022 today her hemoglobin has dropped to 5.8. Her stool was Hemoccult positive. CT had shown some probable gastritis. Will schedule her for EGD today 12/06/2022 Hemoglobin is up to 9.4 today. (4) Chronic diarrhea: Code(s): K52.9 - Noninfective gastroenteritis and colitis, unspecified Status: Acute Assessment and Plan: She has a bowel movement which was liquid every time she eats and even in between. She has history of C diff infection in the past will be recheck for that now. (5) Electrolyte abnormality: Code(s): E87.8 - Other disorders of electrolyte and fluid balance, not elsewhere classified Status: Acute Assessment and Plan: She has abnormal electrolytes including a phosphorus of 1.8, magnesium 1.5. (6) Dehydration: Code(s): E86.0 - Dehydration Status: Acute Assessment and Plan: her BUN on admission is 37. Has come down today at 25. This is in contrast to a level of 4 when she was hospitalized over a year ago. I suspect this may be due to dehydration. Oddly however creatinine which was between 1 and 1.2 in May of last year is now 0.6. (7) PUD (peptic ulcer disease): Code(s): K27.9 - Peptic ulcer, site unspecified, unspecified as acute or chronic, without hemorrhage or perforation Status: Acute Assessment and Plan: on endoscopy she was found have ulceration circumferentially at the proximal end of her gastric sleeve procedure. She had a deep large ulcer at least 4-5 cm in diameter at the distal end of her gastroplasty, at the and the stem [place]. No active bleeding was seen. In the jejunum beyond the anastomosis there was ulceration superficially with for 5 continuous cm. This was non circumferential. As discussed with hospitalist, we will start her on Carafate. She will need follow-up in the but couple of months. I am doubtful that the large ulcer will ever heal, And suspect that has been there since shortly after her procedure. Plan she definitely will need to follow-up with her surgeon at [facility]. The doctor's name pardeep Singh...... if her counts drop again while she is here I would suggest transfer to [facility]
[2022-12-05] MEDS: LIPASE/AMYLASE/PROTEASE 12,000 UNITS CAP 3 CAP PO ×3 (07:59→16:46)
[2022-12-05] MEDS: PANTOPRAZOLE 40 MG TABLET PO ×2 (07:59→20:37)
[2022-12-05] MEDS: ONDANSETRON INJ 4 MG/2 ML VIAL IV PUSH ×2 (07:59→22:18)
[2022-12-05] MEDS: NICOTINE (*PBKC) 21 MG PATCH 1 PATCH TRANSDERM (07:59)
[2022-12-05] MEDS: CHOLESTYRAMINE LIGHT 4 GM POWD.PACK PO ×2 (07:59→16:46)
[2022-12-05] MEDS: GABAPENTIN 100 MG CAPSULE PO ×3 (07:59→16:46)
[2022-12-05] MEDS: LACTATED RINGERS 1,000 ML 100 ML IV CONT ×2 (08:00→18:21)
[2022-12-05] MEDS: MAGNESIUM SULF 4 GM/WATER100ML 4 GM/100 ML BAG IVPB (08:49)
[2022-12-05] MEDS: POTASSIUM CHLORIDE 20 MEQ ER TABLET 80 MEQ PO (08:49)
[2022-12-05] MEDS: REMDESIVIR 100 MG/NS 250 ML 100 MG/250 ML BAG 250 MG IVPB (10:34)
--- NOTE | 2022-12-05 11:00 | PM.IMPN ---
Progress Note: A&P Assessment and Plan (1) Acute GI bleeding: Code(s): K92.2 - Gastrointestinal hemorrhage, unspecified Status: Acute Assessment and Plan: Fecal occult positive stools hemoglobin drop to 5.8 at admission Received one unit Current H/H stable at 9.8/29.5 Continue Q8H monitoring (2) Blood loss anemia: Code(s): D50.0 - Iron deficiency anemia secondary to blood loss (chronic) Status: Acute Assessment and Plan: See 1. (3) Chronic pancreatitis: Code(s): K86.1 - Other chronic pancreatitis Status: Acute Assessment and Plan: as stated above, she is followed for chronic pancreatitis at [facility]. She does take Creon, 54725 units with each meal. She states that she has not had any alcohol for at least 1 year. her lipase was only 64 few days ago when she came to the emergency room. Today it is over 200. For her that is probably high because with chronic pancreatitis she probably cannot mount much of a lipase bump. Stable at this time Tolerating some PO intake (4) Abdominal pain: Code(s): R10.9 - Unspecified abdominal pain Status: Acute Assessment and Plan: Her pain was briefly better after celiac nerve plexus. He is again having pain which is primarily to the left of center in the mid abdomen. It is there all the time and tender to the touch. Nothing affected such as movement or eating. It has gotten worse in the last couple weeks. 12/04/2022 her only pain today is the constant left-sided abdominal wall pain. CT scan showed: 1. Wall thickening of the stomach and small bowel, consistent with gastroenteritis. 2. Mild abdominal lymphadenopathy, likely reactive. 3. Chronic pancreatitis. 4. Enlargement of the left rectus abdominis muscle again seen, consistent with inflammation. Pain is still present Complaining of pain with palpation Continue with pain medication (5) Chronic anemia: Code(s): D64.9 - Anemia, unspecified Status: Acute Assessment and Plan: Her hemoglobin a year ago was 9.3. On admission was 12.4 and today is 8.9. I suspect that the 12.4 was due to dehydration. There is no sign of gastrointestinal bleeding. She denies taking NSAIDs. She is however on tramadol for her pain. Her stools have been light brown. 12/04/2022 today her hemoglobin has dropped to 5.8. Her stool was Hemoccult positive. CT had shown some probable gastritis. Will schedule her for EGD today (6) Chronic diarrhea: Code(s): K52.9 - Noninfective gastroenteritis and colitis, unspecified Status: Acute Assessment and Plan: She has a bowel movement which was liquid every time she eats and even in between. She has history of C diff infection in the past will be recheck for that now. (7) Electrolyte abnormality: Code(s): E87.8 - Other disorders of electrolyte and fluid balance, not elsewhere classified Status: Acute Assessment and Plan: She has abnormal electrolytes including a phosphorus of 1.8, magnesium 1.6, K is 3.1 Replacement given Continue to trend (8) Dehydration: Code(s): E86.0 - Dehydration Status: Acute Assessment and Plan: her BUN on admission is 37. Has come down today at 25. This is in contrast to a level of 4 when she was hospitalized over a year ago. I suspect this may be due to dehydration. Oddly however creatinine which was between 1 and 1.2 in May of last year is now 0.5. Continue trend labs (9) COVID-19: Code(s): U07.1 - COVID-19 Status: Acute Assessment and Plan: Positive testing with GI symptoms of nausea/vomiting. Started remdesivir due to substantial risk of decompensation. Stop remdesivir No oxygen needed Stable (10) Severe protein-calorie malnutrition: Code(s): E43 - Unspecified severe protein-calorie malnutrition Stat
--- NOTE | 2022-12-05 12:53 | PCNFU ---
Nutrition Follow-Up Complete: Severe protein calorie malnutrition related to inadequate energy intake in the setting of chronic disease (chronic pancreatitis) as evidenced by significant weight loss of -21% in 3 months and inadequate po intake for greater than 1 month. Goal:Diet advanced meet estimated needs Pt current nutrition is Low fat. Nutrition recommendation: Add Ensure Enlive BID for an additional 350kcals, 20g protein Last recorded weight is 33.8 kg. Bowel Motility: +BM 12/04 Labs Reviewed: Hgb:9.8, HCT:29.5, Alb:1.7, NA:128, K:3.1, BUN:3, Cr:0.5 Meds Noted: Protonix, zofran, Lacted ringers Skin: WNL Additional Notes: Pt diet advanced to low fat. Intake good at 50-100% at this time. Will add Ensure Enlive for supplementation. Monitor diet order, intake, tolerance, wt, labs. Follow up in 5 day
[2022-12-05 15:04] LABS: Hematocrit 31.2 % (37.0-47.0); Hemoglobin 10.1 g/dL (12.0-15.0)
[2022-12-05] MEDS: SUCRALFATE SUSP 100 MG/ML 10 ML UDC 1000 MG PO ×2 (16:46→20:37)
[2022-12-05 20:10] LABS: Ionized Calcium 4.7 mg/dL (4.7-5.5)
[2022-12-05] MEDS: traZODone HCL 50 MG TABLET 150 MG PO (20:37)
[2022-12-05 22:18] LABS: Hematocrit 30.2 % (37.0-47.0); Hemoglobin 9.9 g/dL (12.0-15.0)
[2022-12-06] VITALS: BP 100/84; PULSE 110; PULSE 88; RESP 16; TEMP 36.4; O2SAT 100
[2022-12-06 04:00] VITALS: BP 102/76; PULSE 91; PULSE 92; RESP 14; TEMP 36.6; O2SAT 98
[2022-12-06] MEDS: LACTATED RINGERS 1,000 ML 100 ML IV CONT (04:12)
[2022-12-06] MEDS: SUCRALFATE SUSP 100 MG/ML 10 ML UDC 1000 MG PO ×4 (05:05→20:50)
[2022-12-06] MEDS: CENTRAL LINE FLUSH 10 ML IV PUSH ×4 (05:05→20:47)
[2022-12-06] MEDS: HYDROmorphone HCL INJ (*CRX) 1 MG/ML SYR IV PUSH ×4 (05:05→20:44)
[2022-12-06 06:39] LABS: Basophils Percent Auto 0.2 % (0.2-1.2); Eosinophils Absolute Auto 0.1 K/mm3 (0-0.3); Eosinophils Percent Auto 0.8 % (0-4.4); Hematocrit 30.2 % (37.0-47.0); Hemoglobin 10.1 g/dL (12.0-15.0); Immature Granulocyte Absolute 0.09 K/mm3 (0.00-0.031); Immature Granulocyte Percent A 0.8 % (0-0.5); Lymphocytes Absolute Auto 2.41 K/mm3 (0.9-3.2); Lymphocytes Percent Auto 20.8 % (18.3-44.2); Mean Corpuscular HGB Conc 33.4 g/dl (32-36); Mean Corpuscular Volume 89.6 fl (80-100); Mean Platelet Volume 10.3 fl (7.4-10.4); Monocytes Percent Auto 8.7 % (2.6-8.5); Neutrophils Percent Auto 68.7 % (45.5-73.1); Platelet Count Result 322 k/mm3 (150-375); Red Blood Count 3.37 M/mm3 (4.2-5.4); Red Cell Distribution Width 15.1 % (11.5-14.5); White Blood Count 11.6 K/mm3 (4.5-10.0)
[2022-12-06 06:48] LABS: INR 1.3; Prothrombin Time 16.9 Seconds (11.1-14.7)
[2022-12-06 06:51] LABS: Alanine Aminotransferase 18 U/L (6-35); Albumin Level 1.7 g/dL (3.5-5.1); Alkaline Phosphatase 61 U/L (38-126); Anion Gap -1 mmol/L (8-16); Aspartate Amino Transferase 23 U/L (14-36); Bilirubin,Total 0.1 mg/dL (0.2-1.3); Calcium 6.7 mg/dL (8.4-10.2); Carbon Dioxide 26 mmol/L (22-30); Chloride 107 mmol/L (98-107); Estimated CRCL calculation 65 ml/min; Estimated Glomerular Filt Rate > 60; Glucose 96 mg/dL (65-110); Magnesium 2.1 mg/dL (1.6-2.3); Phosphorus 2.7 mg/dL (2.5-4.5); Potassium 3.6 mmol/L (3.4-5.0); Sodium 132 mmol/L (137-145)
[2022-12-06 06:56] LABS: Blood Urea Nitrogen < 2 mg/dL (7-17)
[2022-12-06 08:00] VITALS: BP 101/74; PULSE 100; PULSE 65; RESP 20; TEMP 37.4; O2SAT 91
[2022-12-06] MEDS: PSYLLIUM POWDER PACKET 1 PACKET PO (10:00)
[2022-12-06] MEDS: NICOTINE (*PBKC) 21 MG PATCH 1 PATCH TRANSDERM (10:00)
[2022-12-06] MEDS: REMDESIVIR 100 MG/NS 250 ML 100 MG/250 ML BAG 250 MG IVPB (10:00)
[2022-12-06] MEDS: PANTOPRAZOLE 40 MG TABLET PO ×2 (10:00→20:44)
[2022-12-06] MEDS: hydrOXYzine HCL 25 MG TABLET PO ×2 (10:00→17:03)
[2022-12-06] MEDS: CHOLESTYRAMINE LIGHT 4 GM POWD.PACK PO ×2 (10:00→17:03)
[2022-12-06] MEDS: LIPASE/AMYLASE/PROTEASE 12,000 UNITS CAP 3 CAP PO ×3 (10:00→17:03)
[2022-12-06] MEDS: GABAPENTIN 100 MG CAPSULE PO ×3 (10:00→17:03)
[2022-12-06] MEDS: ACETAMINOPHEN 325 MG TABLET PO (11:02)
[2022-12-06 12:00] VITALS: BP 98/75; PULSE 103; PULSE 97; RESP 16; TEMP 37.1; O2SAT 98
[2022-12-06 16:00] VITALS: PULSE 112
--- NOTE | 2022-12-06 16:20 | PM.IMPN ---
Progress Note: A&P Assessment and Plan (1) Acute GI bleeding: Code(s): K92.2 - Gastrointestinal hemorrhage, unspecified Status: Acute Assessment and Plan: Fecal occult positive stools hemoglobin drop to 5.8 at admission Received one unit Current H/H stable at 9.8/29.5 Continue Q8H monitoring (2) Blood loss anemia: Code(s): D50.0 - Iron deficiency anemia secondary to blood loss (chronic) Status: Acute Assessment and Plan: See 1. (3) Chronic pancreatitis: Code(s): K86.1 - Other chronic pancreatitis Status: Acute (4) Abdominal pain: Code(s): R10.9 - Unspecified abdominal pain Status: Acute (5) Chronic anemia: Code(s): D64.9 - Anemia, unspecified Status: Acute (6) Chronic diarrhea: Code(s): K52.9 - Noninfective gastroenteritis and colitis, unspecified Status: Acute (7) Electrolyte abnormality: Code(s): E87.8 - Other disorders of electrolyte and fluid balance, not elsewhere classified Status: Acute (8) Dehydration: Code(s): E86.0 - Dehydration Status: Acute (9) COVID-19: Code(s): U07.1 - COVID-19 Status: Acute (10) Severe protein-calorie malnutrition: Code(s): E43 - Unspecified severe protein-calorie malnutrition Status: Acute (11) UTI (urinary tract infection): Code(s): N39.0 - Urinary tract infection, site not specified Status: Acute (12) Tobacco abuse: Code(s): Z72.0 - Tobacco use Status: Acute (13) Anxiety: Code(s): F41.9 - Anxiety disorder, unspecified Status: Acute (14) PUD (peptic ulcer disease): Code(s): K27.9 - Peptic ulcer, site unspecified, unspecified as acute or chronic, without hemorrhage or perforation Status: Acute Plan Chart reviewed. 42 year old female with history of chronic pancreatitis from history of alcohol abuse presented with persistent nausea and vomiting. Associated diarrhea. She is status post gastrojejunostomy surgery. Melanotic stool reported on admission. Also has history of C diff. Chronic daily marijuana use. Recently diagnosed COVID in her sister. Upon admission her hemoglobin drop down to 5.8 needing transfusion. Post transfusion hemoglobin has been stable. History of chronic pancreatitis on Creon no alcohol for at least 1 year lipase is only 64 on oral intake will advance diet history of celiac nerve plexus block in the past CT abdomen 12/04/2022: Wall thickening off stomach and small bowel consistent with gastroenteritis. Mild abdominal lymphadenopathy likely reactive. Chronic pancreatitis. Enlargement of the left rectus abdominus muscle again seen consistent with inflammation. She was also tested positive for COVID started on remdesivir due to substantial risk of decompensation. She has not required oxygen and has no respiratory symptoms. Will finish 3 days course of remdesivir. Evidence of UTI with UA with some WBCs on IV Rocephin leukocytosis 17,000 on admission. Change to oral antibiotics anxiety disorder on Ativan and hydroxyzine. GI has been consulted. Underwent EGD 12/04/2022 evidence of prior gastric bypass gastric cardia and body. Suture material was visible. Multiple greater did ulcers measuring 20 mm were visualized at the GE junction. The ulcers were clean based without signs of bleeding. A single deep ulcer measuring 40 mm was visualized at the anastomosis of the gastric body and proximal jejunum. Flat spot noted on the ulcer crater. Multiple linear ulcers were visualized in the proximal jejunum. Avoid NSAIDs. Continue PPI twice daily. Repeat EGD planned in 2 months. For a. Ott catheter ambulate. Diet advanced Subjective Date/time seen: 12/06/22 16:20 Interval history: 42 over female with history of chronic pancreatitis from history of alcohol abuse presented with persistent nausea and vomiting. Associated diarrhea. She is status po
[2022-12-06] MEDS: ONDANSETRON INJ 4 MG/2 ML VIAL IV PUSH (18:01)
[2022-12-06] MEDS: LORazepam (*CRX) 0.5 MG TABLET PO (18:05)
[2022-12-06 20:00] VITALS: BP 104/83; PULSE 105; RESP 20; TEMP 36.9; O2SAT 99
[2022-12-06] MEDS: traZODone HCL 50 MG TABLET 150 MG PO (20:44)
[2022-12-07] VITALS: BP 101/81; PULSE 85; PULSE 98; RESP 20; TEMP 36.5; O2SAT 99
[2022-12-07] MEDS: HYDROmorphone HCL INJ (*CRX) 1 MG/ML SYR IV PUSH ×3 (03:46→15:11)
[2022-12-07] MEDS: hydrOXYzine HCL 25 MG TABLET PO ×2 (03:46→11:49)
[2022-12-07 04:00] VITALS: BP 109/87; PULSE 101; PULSE 99; RESP 20; TEMP 36.7; O2SAT 100
[2022-12-07] MEDS: SUCRALFATE SUSP 100 MG/ML 10 ML UDC 1000 MG PO ×3 (05:53→16:55)
[2022-12-07] MEDS: CENTRAL LINE FLUSH 10 ML IV PUSH ×3 (05:54→13:43)
[2022-12-07 06:10] LABS: Basophils Percent Auto 0.3 % (0.2-1.2); Eosinophils Absolute Auto 0.1 K/mm3 (0-0.3); Eosinophils Percent Auto 0.9 % (0-4.4); Hematocrit 31.1 % (37.0-47.0); Hemoglobin 10.4 g/dL (12.0-15.0); Immature Granulocyte Percent A 0.9 % (0-0.5); Lymphocytes Percent Auto 18.8 % (18.3-44.2); Mean Corpuscular HGB Conc 33.4 g/dl (32-36); Mean Corpuscular Hemoglobin 30.7 pg (26-34); Mean Corpuscular Volume 91.7 fl (80-100); Mean Platelet Volume 10.2 fl (7.4-10.4); Monocytes Absolute Auto 1.1 K/mm3 (0.1-0.6); Monocytes Percent Auto 9.9 % (2.6-8.5); Neutrophils Absolute Auto 7.4 K/mm3 (1.3-6.7); Neutrophils Percent Auto 69.2 % (45.5-73.1); Platelet Count Result 349 k/mm3 (150-375); Red Blood Count 3.39 M/mm3 (4.2-5.4); Red Cell Distribution Width 15.1 % (11.5-14.5); White Blood Count 10.6 K/mm3 (4.5-10.0)
[2022-12-07 06:18] LABS: Alanine Aminotransferase 20 U/L (6-35); Albumin Level 1.8 g/dL (3.5-5.1); Alkaline Phosphatase 66 U/L (38-126); Anion Gap -1 mmol/L (8-16); Aspartate Amino Transferase 21 U/L (14-36); Bilirubin,Total 0.2 mg/dL (0.2-1.3); Calcium 6.8 mg/dL (8.4-10.2); Carbon Dioxide 28 mmol/L (22-30); Chloride 105 mmol/L (98-107); Estimated CRCL calculation 65 ml/min; Estimated Glomerular Filt Rate > 60; Glucose 89 mg/dL (65-110); Magnesium 1.8 mg/dL (1.6-2.3); Phosphorus 2.7 mg/dL (2.5-4.5); Potassium 3.4 mmol/L (3.4-5.0); Sodium 132 mmol/L (137-145)
[2022-12-07 07:05] LABS: Blood Urea Nitrogen < 2 mg/dL (7-17)
[2022-12-07 08:00] VITALS: BP 107/78; PULSE 102; PULSE 103; RESP 14; TEMP 36.9; O2SAT 100
[2022-12-07] MEDS: CHOLESTYRAMINE LIGHT 4 GM POWD.PACK PO ×2 (08:31→16:55)
[2022-12-07] MEDS: LIPASE/AMYLASE/PROTEASE 12,000 UNITS CAP 3 CAP PO ×3 (08:31→16:55)
[2022-12-07] MEDS: GABAPENTIN 100 MG CAPSULE PO ×3 (08:31→16:55)
[2022-12-07] MEDS: NICOTINE (*PBKC) 21 MG PATCH 1 PATCH TRANSDERM (08:31)
[2022-12-07] MEDS: PSYLLIUM POWDER PACKET 1 PACKET PO (08:32)
[2022-12-07] MEDS: PANTOPRAZOLE 40 MG TABLET PO (08:32)
[2022-12-07] MEDS: NITROFURANTOIN MONOHYD MACROCR 100 MG CAP PO (08:32)
[2022-12-07] MEDS: ACETAMINOPHEN 325 MG TABLET PO ×2 (08:34→13:45)
[2022-12-07 08:39] VITALS: O2SAT 100
[2022-12-07 12:00] VITALS: BP 114/80; PULSE 116; PULSE 123; RESP 16; TEMP 37.8; O2SAT 100
--- NOTE | 2022-12-07 14:58 | PM.DS ---
DS: Admitting Diagnosis Discharge Date 12/07/2022 Admitting Diagnosis COVID-19 DS: Discharge Diagnosis Discharge Diagnosis (1) COVID-19: Code(s): U07.1 - COVID-19 Status: Acute (2) PUD (peptic ulcer disease): Code(s): K27.9 - Peptic ulcer, site unspecified, unspecified as acute or chronic, without hemorrhage or perforation Status: Acute (3) Electrolyte abnormality: Code(s): E87.8 - Other disorders of electrolyte and fluid balance, not elsewhere classified Status: Acute (4) Abdominal pain: Code(s): R10.9 - Unspecified abdominal pain Status: Acute (5) Anxiety: Code(s): F41.9 - Anxiety disorder, unspecified Status: Acute (6) Tobacco abuse: Code(s): Z72.0 - Tobacco use Status: Acute (7) GERD (gastroesophageal reflux disease): Code(s): K21.9 - Gastro-esophageal reflux disease without esophagitis Status: Acute (8) Tobacco abuse counseling: Code(s): Z71.6 - Tobacco abuse counseling Status: Acute (9) E. coli UTI: Code(s): N39.0 - Urinary tract infection, site not specified; B96.20 - Unspecified Escherichia coli [E. coli] as the cause of diseases classified elsewhere Status: Acute DS: Summary Hospital Course Reason for hospitalization: COVID positive status with symptoms Hospital Course: 12/02/2022 ... H&P: This is a 42-year-old female patient with history of chronic pancreatitis from former alcohol abuse and current tobacco abuse sought care in the emergency department for persistent nausea and vomiting inability to maintain any oral intake.? Patient reports that she was being in the ER few days ago and was not able to tolerate her pain and nausea medicine at home so she returned to the ER last night.? Patient also reported diarrheal stools ongoing for several months status post gastrojejunostomy surgery.? She reports that the last several bouts have been melanotic.? She also history of C diff denies fever chills.? Patient reports chronic daily marijuana use.? She also reports significant stress with her sister being admitted to the hospital just recently ventilated COVID positive.? She and her sister were sharing drinks and laying around on the couch together.? Patient reports that with her being sick and her sister being so sick that she is experiencing severe anxiety.? Patient states that she takes hydroxyzine p.r.n. for anxiety is requesting a dose of something for anxiety.? She has also noted that she has not had any urine output since coming to the hospital except for a few drops of urine that was tested and urinary tract infection was diagnosed. 12/03/2022 to 12/07/2022 ... Hospital Course: 42 over female with history of chronic pancreatitis from history of alcohol abuse presented with persistent nausea and vomiting.? Associated diarrhea.? She is status post gastrojejunostomy surgery.? Melanotic stool reported on admission.? Also has history of C diff.? Chronic daily marijuana use.? Recently diagnosed COVID in her sister.? Upon admission her hemoglobin drop down to 5.8 needing transfusion.? Post transfusion hemoglobin has been stable.? History of chronic pancreatitis on Creon no alcohol for at least 1 year lipase is only 64 on oral intake will advance diet history of celiac nerve plexus block in the past CT abdomen 12/04/2022: Wall thickening off stomach and small bowel consistent with gastroenteritis.? Mild abdominal lymphadenopathy likely reactive.? Chronic pancreatitis.? Enlargement of the left rectus abdominus muscle again seen consistent with inflammation.? She was also tested positive for COVID started on remdesivir due to substantial risk of decompensation.? She has not required oxygen and has no respiratory symptoms.? Will finish 3 days course of remdesivir.? Evidence of UTI with UA with some WBCs on IV Rocephin leukocytosis 17,000 on admission.? Change to oral antibiotics anxiety disorder on Ativan and hydroxyzine.
[2022-12-07] MEDS: LORazepam (*CRX) 0.5 MG TABLET PO (15:06)
[2022-12-07] MEDS: ONDANSETRON INJ 4 MG/2 ML VIAL IV PUSH (15:06)
[2022-12-07 16:00] VITALS: BP 118/99; PULSE 106; RESP 14; TEMP 36.7; O2SAT 100
[2022-12-07] MEDS: POTASSIUM CHLORIDE 20 MEQ ER TABLET 40 MEQ PO (16:55)
== END 2022-12-07 17:15 | disposition home or self-care (01) | DRG 137 ==
LOC: ANHED 07:06 → ANH3MEDSUR 09:12
PROVIDERS: Internal Medicine Gastroenterology; Nurse Practitioner; Admitting Provider Internal Medicine; Emergency Provider Emergency Medicine; PCP Physician Assistant; Visit Provider Family Medicine
PROC: 0DJ08ZZ Inspection of Upper Intestinal Tract, Via Natural or Artificial Opening Endoscopic (ICD-10-PCS; CPT 43235; principal; 2022-12-04 15:45)
DX: U07.1 COVID-19 (principal); J96.12 Chronic respiratory failure with hypercapnia; E43 Unspecified severe protein-calorie malnutrition; K63.3 Ulcer of intestine; R64 Cachexia; K22.10 Ulcer of esophagus without bleeding; K52.9 Noninfective gastroenteritis and colitis, unspecified; D62 Acute posthemorrhagic anemia; K31.89 Other diseases of stomach and duodenum; K86.1 Other chronic pancreatitis; K92.2 Gastrointestinal hemorrhage, unspecified; K25.9 Gastric ulcer, unspecified as acute or chronic, without hemorrhage or perforation; K21.9 Gastro-esophageal reflux disease without esophagitis; K86.0 Alcohol-induced chronic pancreatitis; E87.1 Hypo-osmolality and hyponatremia; E86.0 Dehydration; N39.0 Urinary tract infection, site not specified; B96.20 Unspecified Escherichia coli [E. coli] as the cause of diseases classified elsewhere; F17.210 Nicotine dependence, cigarettes, uncomplicated; F41.9 Anxiety disorder, unspecified; E87.6 Hypokalemia; Z68.1 Body mass index [BMI] 19.9 or less, adult; Z98.84 Bariatric surgery status
CPT/HCPCS: 36415; 36430; 36569; 74177; 76775; 80053; 80069; 81001; 82274; 82330; 82550; 82607; 82746; 83540; 83550; 83605; 83690; 83735; 84100; 85014; 85018; 85025; 85610; 86850; 86900; 86901; 86923; 87040; 87077; 87081; 87086; 87088; 87186; 87636; 93005; 96361; 96365; 96367; 96374; 96375; 96376; 99285; A9270; C9113; G0378; G0379; J0248; J0696; J1170; J1756; J1836; J2060; J2405; J2704; J3475; J3480; J7030; J7040; J7050; J7060; J7120; P9016; P9041; Q9967